=== PATIENT | male | born 1985 | race Caucasian/White ===

== ENCOUNTER 2018-08-31 13:42 | Inpatient (IN) | payer MEDICAID, OTHER ==
--- NOTE | 2018-08-31 14:13 | ED ---
Psych HPI - General Chief Complaint: Psychiatric Symptoms Stated Complaint: psych evaluation Time Seen by Provider: 08/31/18 13:50 Source: patient, RN notes reviewed Mode of arrival: ambulatory Limitations: no limitations - History of Present Illness Initial Comments: 33-year-old male presents emergency from for psychiatric evaluation. Patient states that he is depressed, suicidal. Patient states he has many relationship issues secondary to his drug abuse. Patient states he was recently in senior living released on probation and states that he may be going back to senior living secondary to his drug use. Patient denies any homicidal ideation denies any physical complaints. Patient states he primarily uses heroin, cocaine and methamphetamines - Related Data Home Medications Medication Instructions Recorded Confirmed Dextroamphetamine/Amphetamine 15 mg PO DAILY 08/31/18 08/31/18 [Adderall] Gabapentin [Neurontin] 400 mg PO TID 08/31/18 08/31/18 Paliperidone IM [Invega Sustenna] 234 mg IM Q28D 08/31/18 08/31/18 Trihexyphenidyl [Artane] 1 mg PO BID 08/31/18 08/31/18 Allergies Allergy/AdvReac Type Severity Reaction Status Date / Time haloperidol Allergy Unknown Verified 08/31/18 14:02 Review of Systems ROS Statement: Those systems with pertinent positive or pertinent negative responses have been documented in the HPI. ROS Other: All systems not noted in ROS Statement are negative. Past Medical History Additional Past Medical History / Comment(s): HEPATITIS C History of Any Multi-Drug Resistant Organisms: None Reported Past Surgical History: No Surgical Hx Reported Past Psychological History: ADD/ADHD, Anxiety, Bipolar, Schizoaffective Disorder , Schizophrenia Smoking Status: Current every day smoker Past Alcohol Use History: None Reported Past Drug Use History: Cocaine, Heroin, Marijuana, Methamphetamine General Exam Limitations: no limitations General appearance: alert, in no apparent distress, anxious Head exam: Present: atraumatic, normocephalic, normal inspection Eye exam: Present: normal appearance, PERRL, EOMI. Absent: scleral icterus, conjunctival injection, periorbital swelling ENT exam: Present: normal exam, normal oropharynx, mucous membranes moist, TM's normal bilaterally Neck exam: Present: normal inspection, full ROM. Absent: tenderness, meningismus, lymphadenopathy Respiratory exam: Present: normal lung sounds bilaterally. Absent: respiratory distress, wheezes, rales, rhonchi, stridor Cardiovascular Exam: Present: regular rate, normal rhythm, normal heart sounds. Absent: systolic murmur, diastolic murmur, rubs, gallop, clicks Neurological exam: Present: alert, oriented X3, CN II-XII intact Psychiatric exam: Present: anxious Course Vital Signs 08/31/18 08/31/18 13:44 17:38 Temperature 98.3 F 98.7 F Pulse Rate 87 70 Respiratory 18 16 Rate Blood Pressure 159/107 147/90 O2 Sat by Pulse 98 98 Oximetry Medical Decision Making - Lab Data Result diagrams: 09/01/18 07:34 09/01/18 07:34 Lab Results 08/31/18 Range/Units 14:12 Urine Opiates Screen Detected H (NotDetected) Ur Oxycodone Screen Not Detected (NotDetected) Urine Methadone Screen Not Detected (NotDetected) Ur Propoxyphene Screen Not Detected (NotDetected) Ur Barbiturates Screen Not Detected (NotDetected) U Tricyclic Antidepress Not Detected (NotDetected) Ur Phencyclidine Scrn Not Detected (NotDetected) Ur Amphetamines Screen Detected H (NotDetected) U Methamphetamines Scrn Detected H (NotDetected) U Benzodiazepines Scrn Not Detected (NotDetected) Urine Cocaine Screen Not Detected (NotDetected) U Marijuana (THC) Screen Not Detected (NotDetected) Disposition Clinical Impression: Depression Disposition: ADMITTED IP TO THIS [facility] Condition: Stable
[2018-08-31 14:34] LABS: Amphetamine Screen,Urine Detected (NotDetected); Barbiturate Screen,Urine Not Detected (NotDetected); Benzodiazepines Screen,Urine Not Detected (NotDetected); Cocaine Screen,Urine Not Detected (NotDetected); Methadone Screen, Urine Not Detected (NotDetected); Opiate Screen,Urine Detected (NotDetected); Oxycodone Screen, Urine Not Detected (NotDetected); Phencyclidine Screen,Urine Not Detected (NotDetected); Tricyclic Antidepressant,Urine Not Detected (NotDetected); Urn Cannabinoid Scrn Not Detected (NotDetected)
[2018-08-31 18:46] VITALS: BMI 27.1
[2018-08-31] MEDS ORDERED: MAGNESIUM HYDROXIDE 2,400 MG/10 ML CUP PO PRN (20:04)
[2018-08-31] MEDS ORDERED: ZIPRASIDONE 20 MG VIAL IM PRN (20:04)
[2018-08-31] MEDS ORDERED: MAG HYDROX/AL HYDROX/SIMETH 30 ML CUP PO PRN (20:04)
[2018-08-31] MEDS ORDERED: ACETAMINOPHEN TAB 325 MG TAB PO PRN (20:04)
[2018-08-31] MEDS ORDERED: cloNIDine HCL 0.1 MG TAB PO PRN (20:08)
[2018-08-31] MEDS: LORazepam 1 MG TAB PO PRN (20:55)
--- NOTE | 2018-09-01 07:11 | P.MDCNMH ---
History of Present Illness H&P Date: 09/01/18 Chief Complaint: Medical evaluation 33-year-old male with history of polysubstance abuse Patient presented to the hospital due to depression and suicidal ideation. Patient was in [facility]way recently and were released on probation however due to his drug abuse he is worried that he might go back to [facility]. Patient has no medical complaints at this point. Denies any fevers or chills denies any chest pain or trouble breathing denies any headache. Patient has an area over his left wrist where he shoots his drugs that he reports is tender without any loss of function he denies any discharge or drainage. Review of Systems Pertinent positives as noted in HPI. All other systems were reviewed and are negative Past Medical History Additional Past Medical History / Comment(s): HEPATITIS C History of Any Multi-Drug Resistant Organisms: None Reported Past Surgical History: No Surgical Hx Reported Past Psychological History: ADD/ADHD, Anxiety, Bipolar, Schizoaffective Disorder , Schizophrenia Smoking Status: Current every day smoker Past Alcohol Use History: None Reported Past Drug Use History: Cocaine, Heroin, Marijuana, Methamphetamine Medications and Allergies Home Medications Medication Instructions Recorded Confirmed Type Dextroamphetamine/Amphetamine 15 mg PO DAILY 08/31/18 08/31/18 History [Adderall] Gabapentin [Neurontin] 400 mg PO TID 08/31/18 08/31/18 History Paliperidone IM [Invega Sustenna] 234 mg IM Q28D 08/31/18 08/31/18 History Trihexyphenidyl [Artane] 1 mg PO BID 08/31/18 08/31/18 History Allergies Allergy/AdvReac Type Severity Reaction Status Date / Time haloperidol Allergy Unknown Verified 08/31/18 14:02 Physical Exam Vitals: Vital Signs Temp Pulse Pulse Resp BP BP Pulse Ox 09/01/18 02:28 97.7 F 88 16 121/72 08/31/18 20:52 85 08/31/18 20:51 143/78 08/31/18 18:55 97.2 F L 85 18 122/74 08/31/18 18:36 97.2 F L 85 18 122/74 08/31/18 17:38 98.7 F 70 16 147/90 98 08/31/18 13:44 98.3 F 87 18 159/107 98 Intake and Output 08/31/18 09/01/1809/01/19 22:59 06:59 14:59 Other: Weight 95.722 kg Constitutional: No acute distress, conversant, pleasant Eyes: Anicteric sclerae, moist conjunctiva, no lid-lag Pupils equal round reactive to light ENMT: NC/AT Oropharynx clear, no erythema, exudates Neck: Supple, FROM, no masses, or JVD No carotid bruits No thyromegaly Lungs: Clear to auscultation Clear to percussion Normal respiratory effort, no accessory muscle use Cardiovascular: Heart regular in rate and rhythm, No murmurs, gallops, or rubs No peripheral edema Abdominal: Soft Nontender, no guarding, rebound or rigidity Abdomen moving with respiration Normoactive bowel sounds No hepatomegaly, No splenomegaly No palpable mass No abdominal wall hernia noted Skin: Area 5 x 5 cm over his left wrist from the ventral aspect looks slightly indurated blanchable, tenderness to palpation, with injection cat no drainage no discharge. Slightly warm to the touch Normal temperature, tone, texture, turgor No induration No subcutaneous nodules No rash, lesions No ulcers Extremities: No digital cyanosis No clubbing Pedal pulses intact and symmetrical Radial pulses intact and symmetrical No calf tenderness Psychiatric: Alert and oriented to person, place and time flat affect Poor judgment Neuro Muscles Strength 5/5 in all 4 extremities Sensation to light touch grossly present throughout Cranial nerves II-XII grossly intact No focal sensory deficits Lymphatics: no palpable cervical or supraclavicular , or inguinal lymph nodes Cranial Nerve Examination - Cranial Nerves Cranial Nerve II- Optic: Intact Cranial Nerve III- Oculomotor: Intact Cranial Nerve IV- Trochlear: Intact Cranial Nerve V- Trigeminal: Intact Cranial Nerve - Abducens: Intact Cranial Nerve VII- Facial: Intact Cranial Nerve VIII- Auditory: Intact Cranial Nerve IX- Glossopharyngeal: Intact Cranial Nerve X- Vagus: Intact Cranial Nerve XI- Accessory: Intact Cranial Nerve XII- Hypoglossal: Intact Results Labs: Abnormal Lab Results - Last 24 Hours (Table) 08/31/18 Range/Units 14:12 Urine Opiates Screen Detected H (NotDetected) Ur Amphetamines Screen Detected H (NotDetected) U Methamphetamines Scrn Detected H (NotDetected) Assessment and Plan Assessment: 33-year-old male with history of polysubstance abuse admitted to the mental health unit due to depression and suicidal ideation. Medicine consult to to evaluate patient left wrist for possible cellulitis. Patient uses both wrist to inject his drugs, has left wrist is concerning for cellulitis Plan: Cellulitis of the left wrist Due to patient's history of drug abuse and active IV drug abuse blood cultures will be checked Start patient on Keflex by mouth Monitor vital signs Depression and suicidal ideation Management per psych DVT prophylaxis patient is low risk and ambulatory Follow-up labs once available Thank you for allowing us to participate in the care of this patient. Do not hesitate to contact us with questions. Someone can be reached from the [facility] hospitalist group at all hours of the day at [phone].
[2018-09-01 08:23] LABS: Basophils % (A) 1 %; Eosinophils # (A) 0.2 k/uL (0-0.7); Eosinophils % (A) 4 %; HCT 43.7 % (39.0-53.0); HGB 14.5 gm/dL (13.0-17.5); Lymphocytes # (A) 2.2 k/uL (1.0-4.8); Lymphocytes % (A) 41 %; MCH 29.8 pg (25.0-35.0); MCHC 33.2 g/dL (31.0-37.0); MCV 89.7 fL (80.0-100.0); Mean Platelet Volume 7.2; Monocytes # (A) 0.4 k/uL (0-1.0); Monocytes % (A) 7 %; Neutrophils # (A) 2.4 k/uL (1.3-7.7); Neutrophils % (A) 44 %; Platelet Count 253 k/uL (150-450); RBC 4.88 m/uL (4.30-5.90); RDW 13.2 % (11.5-15.5); WBC 5.3 k/uL (3.8-10.6)
[2018-09-01 08:34] LABS: Anion Gap 6 mmol/L; Blood Urea Nitrogen 20 mg/dL (9-20); Carbon Dioxide 28 mmol/L (22-30); Chloride 103 mmol/L (98-107); Cholesterol 185 mg/dL (<200); Glucose 85 mg/dL (74-99); HDL Cholesterol 36 mg/dL (40-60); LDL Cholesterol,Calculated 132 mg/dL (0-99); Potassium 4.1 mmol/L (3.5-5.1); Sodium 137 mmol/L (137-145); Triglycerides 85 mg/dL (<150)
[2018-09-01] MEDS: NICOTINE 14MG/24HR PATCH TRANSDERM SCH (08:44)
[2018-09-01] MEDS: LORazepam 1 MG TAB PO PRN ×2 (08:44→16:45)
[2018-09-01] MEDS: CEPHALEXIN 500 MG CAP PO SCH ×3 (08:44→21:06)
--- NOTE | 2018-09-01 11:34 | P.HP ---
Psychiatric H&P - . History & Physical: Allergies Allergy/AdvReac Type Severity Reaction Status Date / Time haloperidol Allergy Unknown Verified 08/31/18 14:02 Vital Signs Temp 97.7 F 09/01/18 02:28 Pulse 88 09/01/18 02:28 Resp 16 09/01/18 02:28 BP 121/72 09/01/18 02:28 Pulse Ox 98 08/31/18 17:38 Intake & Output 08/31/18 09/01/18 09/01/18 18:59 06:59 18:59 Weight 95.722 kg Laboratory Last Values WBC 5.3 k/uL (3.8-10.6) 09/01/18 07:34 RBC 4.88 m/uL (4.30-5.90) 09/01/18 07:34 Hgb 14.5 gm/dL (13.0-17.5) 09/01/18 07:34 Hct 43.7 % (39.0-53.0) 09/01/18 07:34 MCV 89.7 fL (80.0-100.0) 09/01/18 07:34 MCH 29.8 pg (25.0-35.0) 09/01/18 07:34 MCHC 33.2 g/dL (31.0-37.0) 09/01/18 07:34 RDW 13.2 % (11.5-15.5) 09/01/18 07:34 Plt Count 253 k/uL (150-450) 09/01/18 07:34 Neutrophils % 44 % 09/01/18 07:34 Lymphocytes % 41 % 09/01/18 07:34 Monocytes % 7 % 09/01/18 07:34 Eosinophils % 4 % 09/01/18 07:34 Basophils % 1 % 09/01/18 07:34 Neutrophils # 2.4 k/uL (1.3-7.7) 09/01/18 07:34 Lymphocytes # 2.2 k/uL (1.0-4.8) 09/01/18 07:34 Monocytes # 0.4 k/uL (0-1.0) 09/01/18 07:34 Eosinophils # 0.2 k/uL (0-0.7) 09/01/18 07:34 Basophils # 0.0 k/uL (0-0.2) 09/01/18 07:34 Sodium 137 mmol/L (137-145) 09/01/18 07:34 Potassium 4.1 mmol/L (3.5-5.1) 09/01/18 07:34 Chloride 103 mmol/L (98-107) 09/01/18 07:34 Carbon Dioxide 28 mmol/L (22-30) 09/01/18 07:34 Anion Gap 6 mmol/L 09/01/18 07:34 BUN 20 mg/dL (9-20) 09/01/18 07:34 Creatinine 0.79 mg/dL (0.66-1.25) 09/01/18 07:34 Est GFR (CKD-EPI)AfAm >90 (>60 ml/min/1.73 sqM) 09/01/18 07:34 Est GFR (CKD-EPI)NonAf >90 (>60 ml/min/1.73 sqM) 09/01/18 07:34 Glucose 85 mg/dL (74-99) 09/01/18 07:34 Calcium 9.0 mg/dL (8.4-10.2) 09/01/18 07:34 Triglycerides 85 mg/dL (<150) 09/01/18 07:34 Cholesterol 185 mg/dL (<200) 09/01/18 07:34 LDL Cholesterol, Calc 132 mg/dL (0-99) H 09/01/18 07:34 HDL Cholesterol 36 mg/dL (40-60) L 09/01/18 07:34 TSH 1.650 mIU/L (0.465-4.680) 09/01/18 07:34 Urine Opiates Screen Detected (NotDetected) H 08/31/18 14:12 Ur Oxycodone Screen Not Detected (NotDetected) 08/31/18 14:12 Urine Methadone Screen Not Detected (NotDetected) 08/31/18 14:12 Ur Propoxyphene Screen Not Detected (NotDetected) 08/31/18 14:12 Ur Barbiturates Screen Not Detected (NotDetected) 08/31/18 14:12 U Tricyclic Antidepress Not Detected (NotDetected) 08/31/18 14:12 Ur Phencyclidine Scrn Not Detected (NotDetected) 08/31/18 14:12 Ur Amphetamines Screen Detected (NotDetected) H 08/31/18 14:12 U Methamphetamines Scrn Detected (NotDetected) H 08/31/18 14:12 U Benzodiazepines Scrn Not Detected (NotDetected) 08/31/18 14:12 Urine Cocaine Screen Not Detected (NotDetected) 08/31/18 14:12 U Marijuana (THC) Screen Not Detected (NotDetected) 08/31/18 14:12 09/01/18 11:25 IDENTIFYING DATA: This patient is a 33-year-old male who was admitted to the mental health unit through the emergency room for acute suicidal ideation. HPI: The patient presented reporting acute suicidal ideation with a plan of overdosing on heroin. He indicated he had been off his medication for several weeks. Sleep has been poor energy is low. He has been feeling hopeless. He is endorsing auditory hallucinations that are occurring all day don't stop. He states that they continually ask questions. They are commanding at times but "not bad stuff". He is reporting no acute homicidal ideation intent or plan. He is known to [facility] and has been admitted to the mental health unit several times in the past. He carries a diagnosis of schizoaffective disorder opioid use disorder cocaine use disorder cannabis use disorder alcohol use disorder with a rule out of ADHD. PAST PSYCHIATRIC HISTORY: The patient has had at least 12 inpatient psychiatric admissions he was last on this unit in 2013 under the care of Dr. Lazo. At that time he was treated with Seroquel. He is managed by Gianna Thomas at [facility] his medications include Invega Sustenna but he has been overdue for that injection. He is also on Neurontin 400 mg 3 times a day and he was to be started on Adderall XR 15 mg daily. He has been on Clozaril in the past and is asking to go back on that medication. He indicates he was discontinued as he was not complying with the blood draws. He does have a history of self-injurious behavior in his 20s. He states in 2007 he lacerated his left forearm which required numerous sutures. PMH: None reported ALLERGIES: Haldol MEDICATIONS: As above CHEMICAL DEPENDENCY HISTORY: He reports using alcohol on a weekly basis having 10-15 drinks at a time, he has a history of using cannabis although was not in his urine drug screen. He has been using heroin 3 times daily for the last 2 weeks he was using Suboxone that he was getting off of the street prior to that. Methamphetamine is once to twice weekly. He indicates he has been in inpatient chemical dependency treatment 8 times the last one was proximal and 1 year ago. FAMILY PSYCHIATRIC HISTORY: Unknown FAMILY CHEMICAL DEPENDENCY HISTORY: unKnown SOCIAL HISTORY: The patient is 33 years old is single he has no children he has been residing either with his parents or an ex-girlfriend. He is unemployed he has a disability income. He has 1 brother one sister no history of service. He is originally from [place]. He reports an extensive legal history being arrested for robbery car theft uttering and publishing. His longest incarceration was 15 months and he states he just recently got out of senior care in April. Afterwards he was residing at the [facility]. Abuse history none reported. MENTAL STATUS EXAM: He patient is a tall male appearing his stated age. Hygiene and grooming are impaired he is dressed in hospital gowns. Eye contact is staring in nature. He maintains a bland affect. He reports ongoing suicidal thoughts no homicidal ideation. He endorses constant auditory hallucinations described as active conversations and sometimes commanding but not directing harm to himself or others. He reports no visual hallucinations. He states being fearful of different organizations in the public but has difficulty explaining why. He does demonstrate increased psychomotor activity while seated in his chair. He demonstrates no verbal or physical aggressiveness thought process was disorganized at times. Insight and judgment limited. He demonstrated no verbal or physical aggressiveness. In terms of extrapyramidal movements he demonstrates some stiffness of his jaw with some repetitive movement. STRENGTHS/WEAKNESSES: Strengths willing to be treated voluntarily in the hospital, income weaknesses: Noncompliance with treatment and substance use INTELLECTUAL FUNCTIONING: Likely below average IMPRESSIONS: [] 1. Schizoaffective disorder, opioid use disorder, methamphetamine use disorder , cocaine use disorder, cannabis use disorder, alcohol use disorder 2. Cellulitis diagnosed of his distal anterior left upper extremity PLAN: The patient has been admitted to the mental health unit voluntarily. We reviewed his presenting symptoms and treatment options. We are considering restarting the Invega Sustenna versus Clozaril. I have placed a call with his outpatient clinician with [facility]. The patient has already been seen by internal medicine for routine history and physical exam keflex has been started for the diagnosed cellulitis. We will monitor for any alcohol withdrawal symptoms. Clonidine is available for any opiate withdrawal symptoms. We will monitor him for safety and encourage his full participation in the milieu. We discussed the possibility of going to inpatient chemical dependency treatment and he will give that consideration.
[2018-09-01 17:37] LABS: Hemoglobin A1C 4.9 % (4.0-6.0)
[2018-09-01] MEDS: cloZAPine 25 MG TAB PO SCH (21:05)
[2018-09-01] MEDS: lamoTRIgine 25 MG TAB PO SCH (21:06)
[2018-09-02] MEDS: CEPHALEXIN 500 MG CAP PO SCH ×3 (09:56→20:19)
[2018-09-02] MEDS: cloZAPine 25 MG TAB PO SCH ×2 (09:56→20:19)
[2018-09-02] MEDS: NICOTINE 14MG/24HR PATCH TRANSDERM SCH (09:57)
--- NOTE | 2018-09-02 12:41 | P.PN ---
Progress Note - Text Progress Note Date: 09/02/18 IDENTIFYING DATA: This patient is a 33-year-old male who was admitted to the mental health unit through the emergency room for acute suicidal ideation. HPI: The patient presented reporting acute suicidal ideation with a plan of overdosing on heroin. He indicated he had been off his medication for several weeks. Sleep has been poor energy is low. He has been feeling hopeless. He is endorsing auditory hallucinations that are occurring all day don't stop. He states that they continually ask questions. They are commanding at times but "not bad stuff". He is reporting no acute homicidal ideation intent or plan. He is known to [facility] and has been admitted to the mental health unit several times in the past. He carries a diagnosis of schizoaffective disorder opioid use disorder cocaine use disorder cannabis use disorder alcohol use disorder with a rule out of ADHD. MENTAL STATUS EXAM: He patient is a tall male appearing his stated age. Hygiene and grooming are impaired he is dressed casually. Eye contact is staring in nature. He maintains a bland affect. He reports ongoing suicidal thoughts no homicidal ideation. He endorses constant auditory hallucinations described as active conversations and sometimes commanding but not directing harm to himself or others. He reports no visual hallucinations. He states being fearful of different organizations in the public but has difficulty explaining why. He does demonstrate increased psychomotor activity while seated in his chair. He demonstrates no verbal or physical aggressiveness thought process was disorganized at times. Insight and judgment limited. He demonstrated no verbal or physical aggressiveness. In terms of extrapyramidal movements he demonstrates some stiffness of his jaw with some repetitive movement. STRENGTHS/WEAKNESSES: Strengths willing to be treated voluntarily in the hospital, income weaknesses: Noncompliance with treatment and substance use INTELLECTUAL FUNCTIONING: Likely below average IMPRESSIONS: [] 1. Schizoaffective disorder, opioid use disorder, methamphetamine use disorder , cocaine use disorder, cannabis use disorder, alcohol use disorder 2. Cellulitis diagnosed of his distal anterior left upper extremity Will continue medications, observe
[2018-09-02] MEDS: lamoTRIgine 25 MG TAB PO SCH (20:19)
[2018-09-03] MEDS: CEPHALEXIN 500 MG CAP PO SCH ×3 (08:03→20:09)
[2018-09-03] MEDS: cloZAPine 25 MG TAB PO SCH ×2 (08:03→20:08)
[2018-09-03] MEDS: NICOTINE 14MG/24HR PATCH TRANSDERM SCH (08:04)
[2018-09-03] MEDS: LORazepam 1 MG TAB PO PRN ×2 (11:04→19:35)
--- NOTE | 2018-09-03 11:42 | P.PN ---
Progress Note - Text Progress Note Date: 09/03/18 Interval history: Chart reviewed and discussed with nursing staff patient's status. He is requesting more when necessary medication for anxiety and tends to isolate in his room. Denies any suicidal homicidal ideation. MENTAL STATUS EXAM: He patient is a tall male appearing his stated age. Hygiene and grooming are impaired he is dressed casually. Eye contact is staring in nature. He maintains a bland affect. He reports ongoing suicidal thoughts no homicidal ideation. He endorses constant auditory hallucinations described as active conversations and sometimes commanding but not directing harm to himself or others. He reports no visual hallucinations. He states being fearful of different organizations in the public but has difficulty explaining why. He does demonstrate increased psychomotor activity while seated in his chair. He demonstrates no verbal or physical aggressiveness thought process was disorganized at times. Insight and judgment limited. He demonstrated no verbal or physical aggressiveness. In terms of extrapyramidal movements he demonstrates some stiffness of his jaw with some repetitive movement. STRENGTHS/WEAKNESSES: Strengths willing to be treated voluntarily in the hospital, income weaknesses: Noncompliance with treatment and substance use INTELLECTUAL FUNCTIONING: Likely below average IMPRESSIONS: [] 1. Schizoaffective disorder, opioid use disorder, methamphetamine use disorder , cocaine use disorder, cannabis use disorder, alcohol use disorder 2. Cellulitis diagnosed of his distal anterior left upper extremity Will increase Lamictal to 50 mg by mouth daily at bedtime we'll follow and observe
[2018-09-03] MEDS: lamoTRIgine 25 MG TAB PO SCH (20:09)
[2018-09-04] MEDS: NICOTINE 14MG/24HR PATCH TRANSDERM SCH (08:15)
[2018-09-04] MEDS: cloZAPine 25 MG TAB PO SCH ×2 (08:15→20:34)
[2018-09-04] MEDS: CEPHALEXIN 500 MG CAP PO SCH ×3 (08:15→20:35)
--- NOTE | 2018-09-04 11:29 | P.PN ---
Progress Note - Text Interval history: The patient is found in group he follows me to an interview room. He states his mood is still low. He reports having difficulty sleeping last night staff recorded he slept 6 hours. Appetite stable. We reviewed his psychotropic medications. In detail with discussed the clozapine. He was informed that I was able to reach his outpatient prescriber. He has questions about restarting Wellbutrin. We decided we would defer that as we are working with the Lamictal and clozapine at this time. He continues to state that he is interested in attending inpatient chemical dependency treatment. That packet has been sent we are waiting a response from [facility]. Mental status exam: The patient is alert he is dressed in his own clothing hygiene grooming adequate. Eye contact is appropriate. Speech is fluent spontaneous nonpressured. He does appear distractible at times. He is reporting no acute suicidal or homicidal thoughts. He is reporting no other symptoms but it's possible that he continues to experience delusional thoughts. He demonstrates no verbal or physical aggressiveness. He continues to have some baseline movement of his lower jaw. Plan: The patient will continue on his current medications we will titrate the clozapine to 25 mg in the morning 75 mg at bedtime, continue Lamictal at current dose. We will monitor him for safety. We will await input from [facility] in terms of all placement date. Vital signs reviewed.
[2018-09-04] MEDS: LORazepam 1 MG TAB PO PRN ×2 (11:45→20:35)
[2018-09-04] MEDS: lamoTRIgine 25 MG TAB PO SCH (20:35)
[2018-09-05] MEDS: NICOTINE 14MG/24HR PATCH TRANSDERM SCH (10:07)
[2018-09-05] MEDS: cloZAPine 25 MG TAB PO SCH ×2 (10:07→20:50)
[2018-09-05] MEDS: CEPHALEXIN 500 MG CAP PO SCH ×3 (10:07→20:50)
--- NOTE | 2018-09-05 11:36 | P.PN ---
Progress Note - Text Interval history: The patient is found in his room he follows me to an interview room. He reports his mood is improving. He has no questions or concerns regarding his psychotropic medication. He has been compliant with his medication. I was informed by social work that he is scheduled to start inpatient chemical dependency treatment on . Social work has also spoken with the patient's mother. His mother would like to have him discharged tomorrow so that she is able to transport him to inpatient chemical dependency treatment on . The patient is agreeable with this plan. Mental status exam: The patient is alert he is dressed in his own clothing. Hygiene grooming adequate. He indicates his mood is better. He is reporting no suicidal or homicidal ideation intent or plan. He is reporting no auditory or visual hallucinations or any specific delusions. He demonstrates no verbal or physical aggressiveness. He demonstrates no tangential thinking loose associations or flight of ideas. He does not appear hypomanic or manic at this time. Insight and judgment improving. He demonstrates no involuntary repetitive movements currently. Plan: The patient will continue on his current psychotropic medication. We will anticipate discharging him tomorrow if he is clinically stable. Vital signs reviewed.
[2018-09-05] MEDS: LORazepam 1 MG TAB PO PRN (17:51)
[2018-09-05] MEDS: lamoTRIgine 25 MG TAB PO SCH (20:50)
[2018-09-06 06:31] VITALS: BP 121/74; PULSE 49; RESP 16; TEMP 97.4
[2018-09-06] MEDS: NICOTINE 14MG/24HR PATCH TRANSDERM SCH (09:08)
[2018-09-06] MEDS: cloZAPine 25 MG TAB PO SCH (09:08)
[2018-09-06] MEDS: CEPHALEXIN 500 MG CAP PO SCH (09:08)
--- NOTE | 2018-09-06 09:13 | P.DS ---
Providers Date of admission: 08/31/18 17:57 Expected date of discharge: 09/06/18 Attending physician: Finn Steele Consults: 08/31/18 20:04 Consult Physician Routine Consulting Provider: Mark Physician Consult Reason/Comments: H and P, eval and tx, r/o metabolic disorder Do you want consulting provider notified?: Already Contacted Primary care physician: [facility] Diagnosis(es) (1) Schizoaffective disorder Current Visit: Yes Status: Acute Priority: High (2) Opioid use disorder Current Visit: Yes Status: Acute Priority: Medium (3) Methamphetamine use disorder, moderate Current Visit: Yes Status: Acute Priority: Medium Hospital Course: Brief summary of admission note: This patient is a 33-year-old male who was admitted to the mental health unit through the emergency room for acute suicidal ideation. The patient presented with acute suicidal thoughts with a plan of overdosing on heroin. He had indicated he was off of his psychotropic medication for several weeks. He described having poor sleep low energy and feeling hopeless. He endorsed auditory hallucinations that were present "all day, all the time". He is known to this mental health unit as well as [facility] mental health. He carries a diagnosis of schizoaffective disorder opiate use disorder cocaine use disorder methamphetamine use disorder alcohol use disorder cannabis use disorder. For full details please refer to my psychiatric evaluation dated 09/01/2018. Summary of hospital course: The patient was admitted to the mental health unit voluntarily. We reviewed the patient's presenting symptoms and treatment options. He was last treated with invega and Invega Sustenna but he felt that medication was not as effective and he asked to go back on Clozaril. We reviewed the potential benefits and side effects of clozapine and his questions were answered. I did have the opportunity to speak with his outpatient clinician Gianna Thomas. She was agreeable to the patient being restarted on clozapine. The patient was restarted on Lamictal. He selectively attended groups. He demonstrated no agitated behavior. He indicated he wanted to attend inpatient chemical dependency treatment and his intake is scheduled for tomorrow. His mother was involved in treatment and discharge planning. She indicated that she preferred the patient be discharged today so that she can take him tomorrow morning to inpatient chemical dependency treatment. The patient states that his auditory hallucinations and suicidal ideation have completely resolved. He was seen by internal medicine for routine history and physical exam. He was diagnosed with a cellulitis of his left distal wrist which was treated with Keflex. Mental status exam: The patient is alert he is dressed in his own clothing hygiene grooming adequate. Eye contact is appropriate speech is fluent spontaneous nonpressured. He is reporting no suicidal or homicidal ideation intent or plan. He is endorsing no auditory or visual hallucinations. He is endorsing no command auditory hallucinations. He reports no specific delusions and indicates that he feels safe. There is no observed evidence of psychosis while he seated in the chair during this interaction. Thought process is linear and goal-directed. He demonstrates no tangential thinking loose associations or flight of ideas. He does not appear hypomanic or manic. Insight and judgment have improved and are grossly intact. He demonstrates no verbal or physical aggressiveness. He is demonstrating no abnormal involuntary movements at this time. Affect is appropriately expressive. He spontaneously reports future oriented thinking. Impressions 1. Schizoaffective disorder, opiate use disorder, methamphetamine use disorder , cocaine use disorder, cannabis use disorder, alcohol use disorder, rule out ADHD 2. Cellulitis of distal left anterior upper extremity now resolved Plan: The patient will be discharged mental health unit today he will return to his mother's home. He has an intake with inpatient chemical dependency treatment tomorrow morning. His mother preferred that he be discharged today so that she can transport him tomorrow morning. He will continue on Lamictal 50 mg at bedtime and continue on clozapine 25 mg in the morning 50 mg at bedtime. A CBC with differential was drawn today, results are pending. He is instructed to abstain from any use of alcohol marijuana or any illicit drug as these will provoke symptoms of psychosis and elevate his safety risk. He is instructed to return to the hospital with any acute safety concern. At this time there is no imminent safety risk and he is appropriate for transition to the next level of care. Patient Condition at Discharge: Stable Plan - Discharge Summary Discharge Rx Participant: No New Discharge Prescriptions: New Cephalexin [Keflex] 500 mg PO TID #6 cap cloZAPine [Clozaril] 25 mg PO DAILY #30 tab cloZAPine [Clozaril] 50 mg PO HS #60 tab lamoTRIgine [LaMICtal] 50 mg PO 2100 #60 tab Nicotine 14Mg/24Hr Patch [Habitrol] 1 patch TRANSDERM DAILY #12 patch Discontinued Gabapentin [Neurontin] 400 mg PO TID Paliperidone IM [Invega Sustenna] 234 mg IM Q28D Trihexyphenidyl [Artane] 1 mg PO BID Dextroamphetamine/Amphetamine [Adderall] 15 mg PO DAILY Discharge Medication List Cephalexin [Keflex] 500 mg PO TID #6 cap 09/06/18 [Rx] Nicotine 14Mg/24Hr Patch [Habitrol] 1 patch TRANSDERM DAILY #12 patch 09/06/18 [ Rx] cloZAPine [Clozaril] 25 mg PO DAILY #30 tab 09/06/18 [Rx] cloZAPine [Clozaril] 50 mg PO HS #60 tab 09/06/18 [Rx] lamoTRIgine [LaMICtal] 50 mg PO 2100 #60 tab 09/06/18 [Rx] Follow up Appointment(s)/Referral[facility]s): [facility] - 09/07/18 11:00 am (Intake ) [facility] [Primary Care Provider] - 1-2 days Patient Instructions/Handouts: How to Stop Smoking (GEN), Depression (GEN), Suicide Prevention (GEN) Activity/Diet/Wound Care/Special Instructions: Activity and diet as tolerated. Avoid the use of street drugs and alcohol. Take all medications as prescribed. When you are in need of refills on your medications please contact your medical provider and/or outpatient psychiatrist to have this done. Please go to scheduled outpatient appointment for aftercare treatment. If symptoms return or become worse, call the crisis line at [phone] and/or go to the nearest emergency room for evaluation.
[2018-09-06 09:23] LABS: Basophils % (A) 1 %; Eosinophils # (A) 0.2 k/uL (0-0.7); Eosinophils % (A) 3 %; HGB 15.7 gm/dL (13.0-17.5); Lymphocytes % (A) 38 %; MCH 30.3 pg (25.0-35.0); MCHC 34.2 g/dL (31.0-37.0); MCV 88.6 fL (80.0-100.0); Mean Platelet Volume 7.2; Monocytes # (A) 0.2 k/uL (0-1.0); Monocytes % (A) 4 %; Neutrophils # (A) 2.8 k/uL (1.3-7.7); Neutrophils % (A) 52 %; Platelet Count 275 k/uL (150-450); RBC 5.19 m/uL (4.30-5.90); RDW 13.4 % (11.5-15.5); WBC 5.4 k/uL (3.8-10.6)
== END 2018-09-06 11:18 | disposition home or self-care (01) | DRG 885 ==
LOC: EC 13:42 → 3MHU 17:57
PROVIDERS: ADMIT Psychiatry & Neurology Psychiatry; ATTEND Psychiatry & Neurology Psychiatry
DX: F25.9 Schizoaffective disorder, unspecified (principal); R45.851 Suicidal ideations; L03.114 Cellulitis of left upper limb; F17.200 Nicotine dependence, unspecified, uncomplicated; F31.9 Bipolar disorder, unspecified; F41.9 Anxiety disorder, unspecified; F90.9 Attention-deficit hyperactivity disorder, unspecified type; B19.20 Unspecified viral hepatitis C without hepatic coma; F11.90 Opioid use, unspecified, uncomplicated; F15.90 Other stimulant use, unspecified, uncomplicated; Z79.899 Other long term (current) drug therapy; Z91.5 Personal history of self-harm; Z88.8 Allergy status to other drugs, medicaments and biological substances; Z91.19 Patient's noncompliance with other medical treatment and regimen
CPT/HCPCS: 80048; 80061; 80306; 82075; 83036; 84443; 85025; 87040; 99285

== ENCOUNTER 2019-01-10 18:46 | Inpatient (IN) | payer MEDICAID, OTHER ==
--- NOTE | 2019-01-10 19:56 | ED ---
General Adult HPI - General Chief complaint: Psychiatric Symptoms Stated complaint: Headache, no sleep Time Seen by Provider: 01/10/19 19:40 Source: patient, RN notes reviewed Mode of arrival: ambulatory Limitations: no limitations - History of Present Illness Initial comments: This is a 33-year-old male who presents emergency department with past medical history significant for schizophrenia. Patient states he stopped taking his medicines while ago. Patient comes in today stating that he thinks he is in charge of the world and in charge of a bunch of people that he believes he wants to direct him to harm other people. Patient states he also thinks he has a lot of got like traits. Patient denies any physical complaints today. Patient denies any drinking or drug use. - Related Data Home Medications Medication Instructions Recorded Confirmed No Known Home Medications 01/10/19 01/10/19 Allergies Allergy/AdvReac Type Severity Reaction Status Date / Time haloperidol Allergy Unknown Verified 01/10/19 20:46 Review of Systems ROS Statement: Those systems with pertinent positive or pertinent negative responses have been documented in the HPI. ROS Other: All systems not noted in ROS Statement are negative. Past Medical History Additional Past Medical History / Comment(s): HEPATITIS C History of Any Multi-Drug Resistant Organisms: None Reported Past Surgical History: No Surgical Hx Reported Past Psychological History: ADD/ADHD, Anxiety, Bipolar, Schizoaffective Disorder, Schizophrenia Smoking Status: Current every day smoker Past Alcohol Use History: None Reported Past Drug Use History: Cocaine, Heroin, Marijuana, Methamphetamine General Exam - General Exam Comments Initial Comments: GENERAL: Patient is well-developed and well-nourished. Patient is nontoxic and well- hydrated and is in no acute distress. ENT: Neck is soft and supple. No significant lymphadenopathy is noted. Oropharynx is clear. Moist mucous membranes. Neck has full range of motion without eliciting any pain. EYES: The sclera were anicteric and conjunctiva were pink and moist. Extraocular movements were intact and pupils were equal round and reactive to light. Eyelids were unremarkable. PULMONARY: Unlabored respirations. Good breath sounds bilaterally. No audible rales rhonchi or wheezing was noted. CARDIOVASCULAR: There is a regular rate and rhythm without any murmurs gallops or rubs. ABDOMEN: Soft and nontender with normal bowel sounds. SKIN: Skin is clear with no lesions or rashes and otherwise unremarkable. NEUROLOGIC: Patient is alert and oriented x3. Cranial nerves II through XII are grossly intact. Motor and sensory are also intact. Normal speech, volume and content. Symmetrical smile. MUSCULOSKELETAL: Normal extremities with adequate strength and full range of motion. LYMPHATICS: No significant lymphadenopathy is noted PSYCHIATRIC: Patient thinks he is in charge the world and has thoughts of wanting to take the people he is in charge of her a lot of people. Limitations: no limitations Course Vital Signs 01/10/19 19:41 Temperature 98.2 F Pulse Rate 68 Respiratory 17 Rate Blood Pressure 139/94 O2 Sat by Pulse 99 Oximetry Medical Decision Making - Medical Decision Making Dr. Ho will taking over the care of this patient at 1am - Lab Data Lab Results 01/10/19 Range/Units 20:36 Urine Opiates Screen Not Detected (NotDetected) Ur Oxycodone Screen Not Detected (NotDetected) Urine Methadone Screen Not Detected (NotDetected) Ur Propoxyphene Screen Not Detected (NotDetected) Ur Barbiturates Screen Not Detected (NotDetected) U Tricyclic Antidepress Not Detected (NotDetected) Ur Phencyclidine Scrn Not Detected (NotDetected) Ur Amphetamines Screen Detected H (NotDetected) U Methamphetamines Scrn Detected H (NotDetected) U Benzodiazepines Scrn Not Detected (NotDetected) Urine Cocaine Screen Not Detected (NotDetected) U Marijuana (THC) Screen Detected H (NotDetected) Disposition Clinical Impression: Methamphetamine abuse Referrals: None,Stated [Primary Care Provider] - 1-2 days
[2019-01-10 20:59] LABS: Amphetamine Screen,Urine Detected (NotDetected); Barbiturate Screen,Urine Not Detected (NotDetected); Benzodiazepines Screen,Urine Not Detected (NotDetected); Cocaine Screen,Urine Not Detected (NotDetected); Methadone Screen, Urine Not Detected (NotDetected); Opiate Screen,Urine Not Detected (NotDetected); Oxycodone Screen, Urine Not Detected (NotDetected); Phencyclidine Screen,Urine Not Detected (NotDetected); Tricyclic Antidepressant,Urine Not Detected (NotDetected); Urn Cannabinoid Scrn Detected (NotDetected)
[2019-01-10] MEDS ORDERED: LORazepam 2 MG/ML INJ IV STA (21:57)
[2019-01-10] MEDS ORDERED: ZIPRASIDONE 20 MG VIAL IM STA (21:58)
[2019-01-10] MEDS ORDERED: LORazepam 2 MG/ML INJ IM STA (22:16)
[2019-01-11 15:17] VITALS: BMI 25.3
[2019-01-11] MEDS ORDERED: MAG HYDROX/AL HYDROX/SIMETH 30 ML CUP PO PRN (15:46)
[2019-01-11] MEDS ORDERED: MAGNESIUM HYDROXIDE 2,400 MG/10 ML CUP PO PRN (15:46)
[2019-01-11] MEDS: LORazepam 1 MG TAB PO PRN (15:58)
[2019-01-11] MEDS: NICOTINE 14MG/24HR PATCH TRANSDERM SCH (16:00)
[2019-01-11] MEDS: ZIPRASIDONE 20 MG VIAL IM PRN (18:56)
[2019-01-12] MEDS: ACETAMINOPHEN TAB 325 MG TAB PO PRN ×2 (06:03→16:37)
[2019-01-12] MEDS: LORazepam 1 MG TAB PO PRN (06:03)
[2019-01-12] MEDS: ZIPRASIDONE 20 MG VIAL IM PRN ×2 (06:04→23:13)
[2019-01-12] MEDS ORDERED: ZIPRASIDONE 20 MG VIAL IM ONE (06:04)
[2019-01-12] MEDS ORDERED: WATER FOR INJECTION, STERILE 10 ML IV ONE (06:05)
--- NOTE | 2019-01-12 07:00 | P.MDCNMH ---
History of Present Illness H&P Date: 01/12/19 Chief Complaint: Grandiose 33-year-old male with history of schizophrenia Patient presented to the hospital seeking help, he was describing grandiose behavior and thoughts. He denies any suicidal or homicidal ideation. He admits to polysubstance abuse. He denies any physical complaints at this time. He denies any medical history. He denies fevers chills coughing shortness of breath or chest pain. Denies any abdominal pain nausea vomiting changes in bowel or urinary habits. Review of Systems Pertinent positives as noted in HPI. All other systems were reviewed and are negative Past Medical History Additional Past Medical History / Comment(s): HEPATITIS C History of Any Multi-Drug Resistant Organisms: None Reported Past Surgical History: No Surgical Hx Reported Past Anesthesia/Blood Transfusion Reactions: No Reported Reaction Past Psychological History: ADD/ADHD, Anxiety, Bipolar, Schizoaffective Disorder Smoking Status: Current every day smoker Past Alcohol Use History: None Reported Past Drug Use History: Cocaine, Heroin, Marijuana, Methamphetamine - Past Family History family Family Medical History: No Reported History Medications and Allergies Home Medications Medication Instructions Recorded Confirmed Type No Known Home Medications 01/10/19 01/10/19 History Allergies Allergy/AdvReac Type Severity Reaction Status Date / Time haloperidol Allergy Unknown Verified 01/10/19 20:46 Physical Exam Vitals: Vital Signs Temp Pulse Pulse Resp BP BP Pulse Ox 01/12/19 06:48 84 18 123/78 01/11/19 17:00 98.2 F 57 L 20 127/82 97 01/11/19 15:08 98.2 F 63 20 111/67 01/11/19 13:48 18 127/82 97 Constitutional: No acute distress, conversant, pleasant Eyes: Anicteric sclerae, moist conjunctiva, no lid-lag Pupils equal round reactive to light ENMT: NC/AT Oropharynx clear, no erythema, exudates Neck: Supple, FROM, no masses, or JVD No carotid bruits No thyromegaly Lungs: Clear to auscultation Clear to percussion Normal respiratory effort, no accessory muscle use Cardiovascular: Heart regular in rate and rhythm, No murmurs, gallops, or rubs No peripheral edema Abdominal: Soft Nontender, no guarding, rebound or rigidity Abdomen moving with respiration Normoactive bowel sounds No hepatomegaly, No splenomegaly No palpable mass No abdominal wall hernia noted Skin: Normal temperature, tone, texture, turgor No induration No subcutaneous nodules No rash, lesions No ulcers Extremities: No digital cyanosis No clubbing Pedal pulses intact and symmetrical Radial pulses intact and symmetrical No calf tenderness Psychiatric: Alert and oriented to person, place and time Appropriate affect Poor judgment Neuro Muscles Strength 5/5 in all 4 extremities Sensation to light touch grossly present throughout Cranial nerves II-XII grossly intact No focal sensory deficits Lymphatics: no palpable cervical or supraclavicular , or inguinal lymph nodes Cranial Nerve Examination - Cranial Nerves Cranial Nerve II- Optic: Intact Cranial Nerve III- Oculomotor: Intact Cranial Nerve IV- Trochlear: Intact Cranial Nerve V- Trigeminal: Intact Cranial Nerve - Abducens: Intact Cranial Nerve VII- Facial: Intact Cranial Nerve VIII- Auditory: Intact Cranial Nerve IX- Glossopharyngeal: Intact Cranial Nerve X- Vagus: Intact Cranial Nerve XI- Accessory: Intact Cranial Nerve XII- Hypoglossal: Intact Assessment and Plan Assessment: 34-year-old male with history of schizophrenia presented to the hospital for mental health evaluation patient was feeling grandiose he denies any medical or physical complaints otherwise patient also admits to polysubstance abuse Plan: Acute psychosis History of schizophrenia Polysubstance abuse Management per psych Tobacco smoking Counseled to quit smoking Nicotine replacement therapy Low risk for DVT, patient is ambulatory Thank you for allowing us to participate in the care of this patient. We will follow peripherally. Do not hesitate to contact us with questions. Someone can be reached from the [facility] hospitalist group at all hours of the day at [phone].
[2019-01-12 09:17] LABS: Basophils # (A) 0.1 k/uL (0-0.2); Basophils % (A) 1 %; Eosinophils # (A) 0.2 k/uL (0-0.7); Eosinophils % (A) 3 %; HCT 44.8 % (39.0-53.0); HGB 14.7 gm/dL (13.0-17.5); Lymphocytes # (A) 1.9 k/uL (1.0-4.8); Lymphocytes % (A) 31 %; MCH 28.3 pg (25.0-35.0); MCHC 32.9 g/dL (31.0-37.0); Mean Platelet Volume 7.6; Monocytes # (A) 0.2 k/uL (0-1.0); Monocytes % (A) 4 %; Neutrophils # (A) 3.6 k/uL (1.3-7.7); Neutrophils % (A) 59 %; Platelet Count 274 k/uL (150-450); RBC 5.21 m/uL (4.30-5.90); RDW 14.6 % (11.5-15.5); WBC 6.1 k/uL (3.8-10.6)
[2019-01-12 09:23] LABS: ALT 22 U/L (21-72); AST 16 U/L (17-59); Albumin 4.2 g/dL (3.5-5.0); Alkaline Phosphatase 67 U/L (38-126); Anion Gap 7 mmol/L; Blood Urea Nitrogen 17 mg/dL (9-20); Calcium 9.5 mg/dL (8.4-10.2); Carbon Dioxide 27 mmol/L (22-30); Chloride 106 mmol/L (98-107); Cholesterol 179 mg/dL (<200); Glucose 155 mg/dL (74-99); HDL Cholesterol 33 mg/dL (40-60); LDL Cholesterol,Calculated 123 mg/dL (0-99); Potassium 4.4 mmol/L (3.5-5.1); Sodium 140 mmol/L (137-145); Total Bilirubin 0.7 mg/dL (0.2-1.3); Total Protein 7.2 g/dL (6.3-8.2); Triglycerides 113 mg/dL (<150)
[2019-01-12] MEDS: NICOTINE 14MG/24HR PATCH TRANSDERM SCH ×2 (09:33→11:02)
--- NOTE | 2019-01-12 10:14 | P.HP ---
Psychiatric H&P - . History & Physical: Allergies Allergy/AdvReac Type Severity Reaction Status Date / Time haloperidol Allergy Unknown Verified 01/10/19 20:46 Vital Signs Temp 98.2 F 01/11/19 17:00 Pulse 84 01/12/19 06:48 Resp 18 01/12/19 06:48 BP 123/78 01/12/19 06:48 Pulse Ox 97 01/11/19 17:00 Laboratory Last Values WBC 6.1 k/uL (3.8-10.6) 01/12/19 08:47 RBC 5.21 m/uL (4.30-5.90) 01/12/19 08:47 Hgb 14.7 gm/dL (13.0-17.5) 01/12/19 08:47 Hct 44.8 % (39.0-53.0) 01/12/19 08:47 MCV 86.0 fL (80.0-100.0) 01/12/19 08:47 MCH 28.3 pg (25.0-35.0) 01/12/19 08:47 MCHC 32.9 g/dL (31.0-37.0) 01/12/19 08:47 RDW 14.6 % (11.5-15.5) 01/12/19 08:47 Plt Count 274 k/uL (150-450) 01/12/19 08:47 Neutrophils % 59 % 01/12/19 08:47 Lymphocytes % 31 % 01/12/19 08:47 Monocytes % 4 % 01/12/19 08:47 Eosinophils % 3 % 01/12/19 08:47 Basophils % 1 % 01/12/19 08:47 Neutrophils # 3.6 k/uL (1.3-7.7) 01/12/19 08:47 Lymphocytes # 1.9 k/uL (1.0-4.8) 01/12/19 08:47 Monocytes # 0.2 k/uL (0-1.0) 01/12/19 08:47 Eosinophils # 0.2 k/uL (0-0.7) 01/12/19 08:47 Basophils # 0.1 k/uL (0-0.2) 01/12/19 08:47 Sodium 140 mmol/L (137-145) 01/12/19 08:47 Potassium 4.4 mmol/L (3.5-5.1) 01/12/19 08:47 Chloride 106 mmol/L (98-107) 01/12/19 08:47 Carbon Dioxide 27 mmol/L (22-30) 01/12/19 08:47 Anion Gap 7 mmol/L 01/12/19 08:47 BUN 17 mg/dL (9-20) 01/12/19 08:47 Creatinine 0.85 mg/dL (0.66-1.25) 01/12/19 08:47 Est GFR (CKD-EPI)AfAm >90 (>60 ml/min/1.73 sqM) 01/12/19 08:47 Est GFR (CKD-EPI)NonAf >90 (>60 ml/min/1.73 sqM) 01/12/19 08:47 Glucose 155 mg/dL (74-99) H 01/12/19 08:47 Calcium 9.5 mg/dL (8.4-10.2) 01/12/19 08:47 Total Bilirubin 0.7 mg/dL (0.2-1.3) 01/12/19 08:47 AST 16 U/L (17-59) L 01/12/19 08:47 ALT 22 U/L (21-72) 01/12/19 08:47 Alkaline Phosphatase 67 U/L (38-126) 01/12/19 08:47 Total Protein 7.2 g/dL (6.3-8.2) 01/12/19 08:47 Albumin 4.2 g/dL (3.5-5.0) 01/12/19 08:47 Triglycerides 113 mg/dL (<150) 01/12/19 08:47 Cholesterol 179 mg/dL (<200) 01/12/19 08:47 LDL Cholesterol, Calc 123 mg/dL (0-99) H 01/12/19 08:47 HDL Cholesterol 33 mg/dL (40-60) L 01/12/19 08:47 Urine Opiates Screen Not Detected (NotDetected) 01/10/19 20:36 Ur Oxycodone Screen Not Detected (NotDetected) 01/10/19 20:36 Urine Methadone Screen Not Detected (NotDetected) 01/10/19 20:36 Ur Propoxyphene Screen Not Detected (NotDetected) 01/10/19 20:36 Ur Barbiturates Screen Not Detected (NotDetected) 01/10/19 20:36 U Tricyclic Antidepress Not Detected (NotDetected) 01/10/19 20:36 Ur Phencyclidine Scrn Not Detected (NotDetected) 01/10/19 20:36 Ur Amphetamines Screen Detected (NotDetected) H 01/10/19 20:36 U Methamphetamines Scrn Detected (NotDetected) H 01/10/19 20:36 U Benzodiazepines Scrn Not Detected (NotDetected) 01/10/19 20:36 Urine Cocaine Screen Not Detected (NotDetected) 01/10/19 20:36 U Marijuana (THC) Screen Detected (NotDetected) H 01/10/19 20:36 01/12/19 09:43 IDENTIFYING DATA: This patient's is a 33-year-old male who was admitted to the mental health unit through the emergency room for suicidal ideation and acute psychosis HPI: The patient was admitted to the mental health unit through the emergency room for acute psychosis. The patient is well known to the psychiatric service and was last admitted here in August of this year. The patient's today states that she is expressing auditory hallucinations. He is receiving messages from the TV and radio acknowledging him as God and offering to kill people for him. He reports no visual hallucinations. He describes paranoid and persecutory feelings regarding the police and other people in the community. He feels overwhelmed by these symptoms and has had suicidal ideation. Several times he states that he can't survive without having a stimulant medication for his ADHD symptoms. He has a long-standing history of methamphetamine/amphetamine use disorder. He carries a diagnosis of schizoaffective disorder opiate use disorder cocaine use disorder cannabis use disorder as well. The patient was only willing to participate in the session briefly this morning. PAST PSYCHIATRIC HISTORY: The patient has had at least 13 inpatient psychiatric admissions the last one was in August of this year. He has been treated with numerous antipsychotics including Seroquel invega Clozaril etc. He frequently is noncompliant with medications. He does have a history of self-injurious behavior in his 20s. In 2007 he lacerated his left forearm which required numerous sutures PMH: none reported ALLERGIES: Haldol MEDICATIONS: Noncompliant with medication CHEMICAL DEPENDENCY HISTORY: The patient reports no recent use of alcohol although he has abused that in the past he has been using marijuana and methamphetamine and he will use prescribe stimulants he gets off of the street. His drug screen was positive for marijuana and amphetamines methamphetamine. He does have a history of abusing opioids including heroin and Suboxone. He has been in inpatient chemical dependency treatment at least 8 times the last one was approximately one year ago. FAMILY PSYCHIATRIC HISTORY: Unknown FAMILY CHEMICAL DEPENDENCY HISTORY: Unknown SOCIAL HISTORY: The patient's is 33 years old he is single he has no children he states he's been residing with an ex-girlfriend. He is unemployed he has a disability income. He has 1 brother and 1 sister. No history of service. He does have an extensive legal history has been arrested for robbery, car theft, uttering and publishing. He states he has a current charge of obstructing and resisting which occurred 2 weeks ago. His longest incarceration was 15 months. No abuse history reported. MENTAL STATUS EXAM: The patient is a tall male appearing his stated age she has a disheveled appearance his hair is grown out longer than usual. He is dressed in hospital gowns. He appears tired. He states his mood is depressed he is endorsing hopelessness thinking suicidal ideation. He is reporting no homicidal ideation. He describes auditory hallucinations as noted above, he endorses ideas of reference. He describes other paranoid persecutory thoughts as noted above. He demonstrates no verbal or physical aggressiveness. He demonstrated increased psychomotor activity as he had difficulty sitting still in the chair. He demonstrated no involuntary repetitive movements. He was not able to participate in any cognitive screening as he truncated the session. STRENGTHS/WEAKNESSES: Strengths: Disability income, weaknesses, ongoing substance use noncompliance with psychiatric care INTELLECTUAL FUNCTIONING: Likely below average IMPRESSIONS: [] 1. Schizoaffective disorder, opioid use disorder methamphetamine use disorder cocaine use disorder cannabis use disorder alcohol use disorder PLAN: The patient has been admitted to the mental health unit voluntarily. We reviewed his presenting symptoms and treatment options. He states that even though we used to claws role with his last admission he is not capable of maintaining the medication or the blood tests. With that said he spontaneously asked to be placed back on invega with a plan of us transitioning him to the Depo injection. He has no questions or concerns about invega. We will restart his Wellbutrin and trazodone. He will be seen by internal medicine for routine history and physical exam. Social work will meet with the patient to complete a psychosocial assessment and begin discharge planning. We were unable to have a conversation regarding inpatient chemical dependency treatment but this will be discussed during the course of his care. He is encouraged to participate in the milieu. We will monitor for any alcohol withdrawal symptoms.
[2019-01-12] MEDS ORDERED: PALIPERIDONE 6 MG TAB.ER.24 PO SCH (10:15)
[2019-01-12] MEDS: buPROPion XL 150 MG TAB.ER.24H PO SCH (11:01)
[2019-01-12] MEDS: ARIPiprazole 15 MG TAB PO SCH (12:04)
[2019-01-12 16:56] LABS: Appearance,Urine Clear (Clear); Bilirubin,Urine Negative (Negative); Blood,Urine Negative (Negative); Color,Urine Yellow; Glucose,Urine (UA) Negative (Negative); Ketones,Urine Negative (Negative); Leukocyte Esterase,Urine Trace (Negative); Nitrite,Urine Negative (Negative); PH, Urine 7.5 (5.0-8.0); Protein,Urine Negative (Negative); RBC,Urine 1 /hpf (0-5); Specific Gravity,Urine 1.025 (1.001-1.035); Urobilinogen,Urine <2.0 mg/dL (<2.0); WBC,Urine 7 /hpf (0-5)
[2019-01-12] MEDS ORDERED: ONDANSETRON 4 MG/2 ML VIAL IM STA (18:55)
[2019-01-12 19:12] LABS: Hemoglobin A1C 4.4 % (4.0-6.0)
[2019-01-12] MEDS ORDERED: traZODone HCL 50 MG TAB PO SCH (21:00)
[2019-01-13] MEDS: ACETAMINOPHEN TAB 325 MG TAB PO PRN ×2 (07:44→15:08)
[2019-01-13] MEDS: PANTOPRAZOLE 40 MG TABLET PO SCH (08:52)
[2019-01-13] MEDS: ARIPiprazole 15 MG TAB PO SCH (08:52)
[2019-01-13] MEDS: LORazepam 1 MG TAB PO PRN ×2 (08:52→16:46)
[2019-01-13] MEDS: NICOTINE 14MG/24HR PATCH TRANSDERM SCH (08:53)
[2019-01-13] MEDS: buPROPion XL 150 MG TAB.ER.24H PO SCH (08:53)
--- NOTE | 2019-01-13 15:56 | P.PN ---
Progress Note - Text Progress Note Date: 01/13/19 IDENTIFICATION DATA: This patient's is a 33-year-old male who was admitted to the mental health unit through the emergency room for suicidal ideation and acute psychosis. UDS POSITIVE FOR METH. He presented with auditory hallucinations. He is receiving messages from the TV and radio acknowledging him as God and offering to kill people for him. He describes paranoid and persecutory feelings regarding the police and other people in the community. He feels overwhelmed by these symptoms and has had suicidal ideation. INTERVAL HISTORY: Patient reports feeling better since being in the hospital. However he continues to reports getting messages from TV and therefore doesnt watch TV. He also claims his brain functions differently in reference to how he interprets music. He says he reads /listens to different words of music than being played. He reports feeling depressed, anxious with poor sleep, hyper energetic and agitated most of the time. He reports using illicit drugs instead of taking his prescribed medications. He currently states he wants to get back o n his medications, even though he doesnt consider getting messages from the TV is problem. He says Trazadone is not helping him with sleep and claims it made him more agitated. He wants to try a different medication for sleep. He also asked if he could stronger medication than ativan for anxiety. MENTAL STATUS EXAMINATION: Patient appears his stated age in fair grooming and hygiene. He maintains good eye contact. No abnormal movements noted. His speech and thought process are goal directed. His mood is reported as better and affect constricted. He reports on going auditory hallucinations. He denies visual hallucinations. He denies paranoid ideations. The patient is alert and oriented 4 and in no apparent distress. Denies suicidal or homicidal ideation. insight and judgment are improving ASSESSMENT Schizoaffective disorder, opioid use disorder methamphetamine use disorder cocaine use disorder cannabis use disorder alcohol use disorder PLAN: Will discontinue Trazadone as he reports worsening of agitation with it. He is willing to take remreon. Will start him on remaeron 7.5mg po qhs. Continue Wellbutrin, abilify
[2019-01-13] MEDS: MIRTAZAPINE 15 MG TAB PO SCH ×2 (21:46→22:45)
[2019-01-14] MEDS: PANTOPRAZOLE 40 MG TABLET PO SCH (07:47)
[2019-01-14] MEDS: NICOTINE 14MG/24HR PATCH TRANSDERM SCH (08:13)
[2019-01-14] MEDS: ARIPiprazole 15 MG TAB PO SCH (08:15)
[2019-01-14] MEDS: buPROPion XL 150 MG TAB.ER.24H PO SCH (08:15)
[2019-01-14] MEDS: ACETAMINOPHEN TAB 325 MG TAB PO PRN ×2 (09:04→16:08)
[2019-01-14] MEDS: LORazepam 1 MG TAB PO PRN ×2 (11:01→20:42)
[2019-01-14] MEDS ORDERED: ONDANSETRON 4 MG TAB PO STA (14:20)
--- NOTE | 2019-01-14 17:54 | P.PN ---
Progress Note - Text Progress Note Date: 01/14/19 IDENTIFICATION DATA: This patient's is a 33-year-old male who was admitted to the mental health unit through the emergency room for suicidal ideation and acute psychosis. UDS POSITIVE FOR METH. He presented with auditory hallucinations. He is receiving messages from the TV and radio acknowledging him as God and offering to kill people for him. He describes paranoid and persecutory feelings regarding the police and other people in the community. He feels overwhelmed by these symptoms and has had suicidal ideation. INTERVAL HISTORY: Patient reports feeling amotivated and contended with anything. He reports feeling irritable and claims he tries to move from one place to another place and attributes it to his ADHD. He states he can sit in one place for a longer period of time and says he is used to being on stimulant medications for his ADHD. Patient was explained that Wellbutrin also helps him to stay focused. He reports staying isolated, sad. He reports to have vomited once today and says he prefers to lay on his bed when he is not feeling well. He reports he only attended some groups today. MENTAL STATUS EXAMINATION: Patient appears his stated age in fair grooming and hygiene. He maintains good eye contact. No abnormal movements noted. His speech and thought process are goal directed. His mood is reported as SAD and affect constricted.. He denies current auditory or visual hallucinations. He reports vague paranoid ideations. The patient is alert and oriented 4 and in no apparent distress. Denies suicidal or homicidal ideation. insight and judgment are improving ASSESSMENT Schizoaffective disorder, opioid use disorder methamphetamine use disorder cocaine use disorder cannabis use disorder alcohol use disorder PLAN: Will increase the dose of wellbutrin to 300mg po qday as he reports worsening of depression Continue lorrie yee
[2019-01-14] MEDS: MIRTAZAPINE 15 MG TAB PO SCH (20:15)
[2019-01-15] MEDS: ARIPiprazole 15 MG TAB PO SCH (08:19)
[2019-01-15] MEDS: buPROPion XL 300 MG TAB.ER.24H PO SCH (08:19)
[2019-01-15] MEDS: PANTOPRAZOLE 40 MG TABLET PO SCH (08:19)
[2019-01-15] MEDS: NICOTINE 14MG/24HR PATCH TRANSDERM SCH (08:19)
[2019-01-15] MEDS: ACETAMINOPHEN TAB 325 MG TAB PO PRN ×2 (09:25→15:48)
[2019-01-15] MEDS: LORazepam 1 MG TAB PO PRN ×2 (09:34→17:38)
--- NOTE | 2019-01-15 10:08 | P.PN ---
Progress Note - Text Interval history: The patient is found in the hallway he follows me to an interview room. He indicates his mood is okay. He states that he continues to receive messages from the TV. He states that Alicia Monroe is having him tracked because he sent a letter to her several years ago. He states that he believes the Masons and the illuminati may be tracking him as well. He informs me that the stuff will never change and he does not want to take a medication just for that reason. He is agreeable to continuing the Abilify as it may help as a mood stabilizer. Again we discussed the option of attending rehab. He states he is giving that consideration. We discussed the steps he would take to initiate inpatient chemical dependency care. Mental status exam: The patient is alert he is dressed in his own clothing hygiene grooming adequate. Speech is fluent and spontaneous nonpressured. He continues to describe auditory hallucinations with paranoid persecutory thinking. It does appear that some of that is part of his chronic baseline. He does demonstrate some difficulty remaining calmly seated in the chair as he frequently changes position. There is some noted lateral movement of his jaw but is noticed for the first time today. It does appear to be repetitive and involuntary. He is reporting no suicidal or homicidal thoughts. Insight and judgment limited. He demonstrates no verbal or physical aggressiveness. Plan: The patient will remain on the Abilify. I will confer with the treatment team regarding his status compared to last week. We plan on initiating Abilify maintena during this hospitalization. He is encouraged to call access for inpatient chemical dependency treatment. He is encouraged to fully participate in the milieu. Vital signs reviewed. We will continue to assess him for safety. Once it appears he is approximated baseline function we will discharge him back to outpatient care.
[2019-01-15] MEDS: guaiFENesin 600 MG TABLET.ER PO PRN (10:23)
[2019-01-15] MEDS ORDERED: ARIPiprazole IM SYRINGE 400 MG (NO CHARGE) IM ONE (11:00)
[2019-01-15] MEDS ORDERED: diphenhydrAMINE 50 MG CAP PO STA (20:51)
[2019-01-15] MEDS: MELATONIN 5 MG TABLET PO SCH (21:03)
[2019-01-16] MEDS: LORazepam 1 MG TAB PO PRN ×2 (06:46→15:10)
[2019-01-16] MEDS: ACETAMINOPHEN TAB 325 MG TAB PO PRN ×2 (06:48→15:45)
[2019-01-16] MEDS: guaiFENesin 600 MG TABLET.ER PO PRN (07:12)
[2019-01-16] MEDS: PANTOPRAZOLE 40 MG TABLET PO SCH (08:28)
[2019-01-16] MEDS: NICOTINE 14MG/24HR PATCH TRANSDERM SCH (08:28)
[2019-01-16] MEDS: buPROPion XL 300 MG TAB.ER.24H PO SCH (08:28)
[2019-01-16] MEDS: ARIPiprazole 15 MG TAB PO SCH (08:28)
[2019-01-16] MEDS: ONDANSETRON ODT 4 MG TAB PO PRN ×2 (08:49→15:10)
--- NOTE | 2019-01-16 10:05 | P.PN ---
Progress Note - Text Interval history: The patient is found in the hallway he follows me to an interview room. He states that his mood is improving but he is worried about anxiety. We discussed using Vistaril as needed. He was requesting a benzodiazepine and then later requesting a stimulant but he was informed that those medications will be prescribed to him upon discharge. He has been accepted to [facility] for inpatient chemical dependency treatment tomorrow afternoon. He states his mother will be picking him up and bring him there. Mental status exam: The patient is alert he is dressed in his own clothing hygiene grooming adequate. Speech is fluent spontaneous nonpressured. He reports no suicidal or homicidal ideation intent or plan. He is reporting no auditory or visual hallucinations at this time. He does continue to have paranoid persecutory thoughts which may be part of his baseline. He demonstrates no verbal or physical aggressiveness. Thought process is becoming more organized. He demonstrates no verbal or physical aggressiveness. He does continue to demonstrate some lateral movement of his jaw which typically goes to the left. Plan: The patient is clinically stabilizing. We will anticipate discharging him tomorrow morning to go to inpatient chemical dependency treatment. Vital signs reviewed. He slept well last night we will monitor sleep this evening. Vistaril 50 mg up to 3 times daily will be added for anxiety if needed. He is encouraged to continue participating in the milieu. We will continue monitoring him for safety.
[2019-01-16] MEDS: hydrOXYzine PAMOATE 25 MG CAP PO PRN ×2 (10:06→20:59)
[2019-01-16] MEDS: MELATONIN 5 MG TABLET PO SCH (22:14)
[2019-01-17 06:38] VITALS: BP 114/65; PULSE 53; RESP 18; TEMP 98.2
[2019-01-17] MEDS: hydrOXYzine PAMOATE 25 MG CAP PO PRN (06:44)
[2019-01-17] MEDS: ACETAMINOPHEN TAB 325 MG TAB PO PRN (06:45)
[2019-01-17] MEDS: ONDANSETRON ODT 4 MG TAB PO PRN (07:50)
[2019-01-17] MEDS: PANTOPRAZOLE 40 MG TABLET PO SCH (07:53)
[2019-01-17] MEDS: buPROPion XL 300 MG TAB.ER.24H PO SCH (08:29)
[2019-01-17] MEDS: ARIPiprazole 15 MG TAB PO SCH (08:29)
[2019-01-17] MEDS: NICOTINE 14MG/24HR PATCH TRANSDERM SCH (08:30)
--- NOTE | 2019-01-17 09:16 | P.DS ---
Providers Date of admission: 01/11/19 14:19 Expected date of discharge: 01/17/19 Attending physician: Finn Steele Consults: 01/11/19 15:46 Consult Physician Routine Consulting Provider: Mark Nicole Consult Reason/Comments: H & P and medical care Do you want consulting provider notified?: Yes Primary care physician: Stated None - Discharge Diagnosis(es) (1) Schizoaffective disorder Current Visit: No Status: Acute Priority: High (2) Opioid use disorder Current Visit: No Status: Acute Priority: Medium (3) Methamphetamine use disorder, moderate Current Visit: No Status: Acute Priority: Medium (4) Cocaine use disorder Current Visit: Yes Status: Acute Priority: Medium (5) Cannabis use disorder, mild, abuse Current Visit: Yes Status: Acute Priority: Medium (6) Alcohol use disorder Current Visit: Yes Status: Acute Priority: Medium Hospital Course: Brief summary of admission note: This patient is a 33-year-old male who was admitted to the mental health unit through the emergency room for suicidal ideation and acute psychosis. The patient reported he was experiencing auditory hallucinations. He reported he was receiving messages from the TV and the radio acknowledging him as God and offering to kill people for him. He reported paranoid and persecutory thoughts regarding the police and other people in the community. He felt the symptoms were overwhelming and subsequently had suicidal ideation. The patient has a long-standing history of abusing numerous substances. His urine drug screen was positive for methamphetamine and marijuana upon admission. For full details please refer to my psychiatric evaluation dated 01/12/2019. Summary of hospital course: The patient was admitted to the mental health unit voluntarily. We reviewed his presenting symptoms and medication options. We were able to review records from [facility]. Ultimately we decided to reinitiate Abilify and he was given his first dose of Abilify maintena while on the mental health unit. His Wellbutrin was restarted and Vistaril was used for anxiety. He reports benefit from using melatonin for sleep. The patient's symptoms of psychosis slowly abated during the course of his hospitalization. He did begin participating in the milieu. He verbalized a desire to participate in inpatient chemical dependency treatment and this was arranged for him to star t at [facility] today. He was seen by internal medicine for routine history and physical exam. He demonstrated no agitated behavior. He reports a resolution of his psychosis and reports his suicidal ideation is gone. Mental status exam: The patient is alert he is dressed in his own clothing hygiene grooming are good. Speech is fluent spontaneous nonpressured. He reports mood is good affect is congruent. He denies having any suicidal or homicidal ideation intent or plan. He reports no auditory or visual hallucinations. He is reporting no specific delusions but is likely that he has some chronic residual delusional thought. He demonstrates no verbal or physical aggressiveness. In terms of involuntary movements he continues to have a lateral movement of his jaw. He demonstrates no tangential thinking loose associations or flight of ideas. He does not appear hypomanic or manic. Affect is appropriately expresses. He is oriented to person place and date. He spontaneously describes future oriented thinking. Impressions 1. Schizoaffective disorder, opioid use disorder, methamphetamine use disorder, cocaine use disorder, cannabis use disorder, alcohol use disorder Plan: The patient will be discharged mental health unit today. He will be starting inpatient chemical dependency treatment at [facility] at 1 PM. He states he plans on visiting his clinician at [facility] prior to starting [facility] today. The patient will continue on Abilify 15 mg daily for another 13 days then discontinue the oral dose. He has received the Abilify maintena injection 400 mg on 01/15/2019. He is due for his next dose of Abilify maintena 400 mg on 02/12/2019. He will continue on Wellbutrin XL 300 mg daily, Vistaril 50 mg up to 3 times daily as needed for anxiety, melatonin 5 mg at bedtime as needed for insomnia. At this time there is no imminent safety risk he is appropriate for transition to inpatient chemical dependency treatment. He is instructed to return to the hospital with any acute safety concerns. Patient Condition at Discharge: Stable Plan - Discharge Summary New Discharge Prescriptions: New ARIPiprazole [Abilify] 15 mg PO DAILY #12 tab ARIPiprazole IM [Abilify Maintena] 400 mg IM ONCE #1 each hydrOXYzine HCL [Atarax] 50 mg PO TID #45 tab Nicotine 14Mg/24Hr Patch [Habitrol] 1 patch TRANSDERM DAILY #14 patch Melatonin 5 mg PO HS #30 tablet buPROPion XL [Wellbutrin XL] 300 mg PO DAILY #30 tab.er.24h Discharge Medication List ARIPiprazole IM [Abilify Maintena] 400 mg IM ONCE #1 each 01/17/19 [Rx] ARIPiprazole [Abilify] 15 mg PO DAILY #12 tab 01/17/19 [Rx] Melatonin 5 mg PO HS #30 tablet 01/17/19 [Rx] Nicotine 14Mg/24Hr Patch [Habitrol] 1 patch TRANSDERM DAILY #14 patch 01/17/19 [Rx] buPROPion XL [Wellbutrin XL] 300 mg PO DAILY #30 tab.er.24h 01/17/19 [Rx] hydrOXYzine HCL [Atarax] 50 mg PO TID #45 tab 01/17/19 [Rx] Follow up Appointment(s)/Referral(s): intake,intake [Other] - 01/17/19 1:00 pm [facility] [Outside] - 01/24/19 1:30 pm (01-24-19 at 1:30 with Gianna Thomas ) [facility] [Outside] - 01/17/19 11:15 am (01-17-19 with Katy Hull at 11:15) None,Stated [Primary Care Provider] - 1-2 days Patient Instructions/Handouts: Depression (DC), Schizoaffective Disorder (DC), Methamphetamine Abuse (DC), Suicide Prevention (DC) Activity/Diet/Wound Care/Special Instructions: Activity and diet as tolerated. NO guns or weapons in the home. REFRAIN from alcohol and drugs not prescribed by your physician. Attend all follow up appointments as scheduled. Take all medications as prescribed. If in need of medication refills, please go to your primary care physician, or to your out patient psychiatric provider. If in crisis, please call , or go to the nearest ER.
[2019-01-17] MEDS: LORazepam 1 MG TAB PO PRN (09:29)
== END 2019-01-17 10:40 | disposition home or self-care (01) | DRG 885 ==
LOC: EC 18:46 → 3MHU 01-11 14:19
PROVIDERS: ADMIT Psychiatry & Neurology Psychiatry; ATTEND Psychiatry & Neurology Psychiatry
DX: F25.9 Schizoaffective disorder, unspecified (principal); F23 Brief psychotic disorder; R45.851 Suicidal ideations; F12.10 Cannabis abuse, uncomplicated; Z72.89 Other problems related to lifestyle; F11.90 Opioid use, unspecified, uncomplicated; F14.90 Cocaine use, unspecified, uncomplicated; F15.90 Other stimulant use, unspecified, uncomplicated; F17.200 Nicotine dependence, unspecified, uncomplicated; F31.9 Bipolar disorder, unspecified; F41.9 Anxiety disorder, unspecified; F90.9 Attention-deficit hyperactivity disorder, unspecified type; G47.00 Insomnia, unspecified; Z91.14 Patient's other noncompliance with medication regimen; Z91.5 Personal history of self-harm; Z88.8 Allergy status to other drugs, medicaments and biological substances
CPT/HCPCS: 80053; 80061; 80306; 81001; 82075; 83036; 84443; 85025; 96372; 99285

== ENCOUNTER 2019-02-22 16:17 | Emergency (ER) | payer OTHER ==
[2019-02-22 16:38] VITALS: BP 110/66; PULSE 75; RESP 16; TEMP 97.8
--- NOTE | 2019-02-22 17:30 | ED ---
General Adult HPI - General Chief complaint: Skin/Abscess/Foreign Body Stated complaint: SKIN INFECTION Time Seen by Provider: 02/22/19 16:45 Source: patient Mode of arrival: ambulatory Limitations: no limitations - History of Present Illness Initial comments: Patient is a 34-year-old male presents emergency Department with a rash on his forehead. Patient reports that he developed a rash on his forehead approximately 2 days ago after he was performing sexual encounters with his female partner. Patient reports he stopped using meth yesterday and feels little anxious. Patient reports the skin infection is itchy but denies fever, nausea, vomiting. Patient denies any erythema, edema or discharge from the lesion. Patient denies any trauma to the area. Patient denies taking any medication to alleviate the symptoms. - Related Data Previous Rx's Medication Instructions Recorded ARIPiprazole IM [Abilify Maintena] 400 mg IM ONCE #1 each 01/17/19 ARIPiprazole [Abilify] 15 mg PO DAILY #12 tab 01/17/19 Melatonin 5 mg PO HS #30 tablet 01/17/19 Nicotine 14Mg/24Hr Patch [Habitrol] 1 patch TRANSDERM DAILY #14 patch 01/17/19 buPROPion XL [Wellbutrin XL] 300 mg PO DAILY #30 tab.er.24h 01/17/19 hydrOXYzine HCL [Atarax] 50 mg PO TID #45 tab 01/17/19 Cephalexin [Keflex] 500 mg PO Q6HR #40 cap 02/22/19 Allergies Allergy/AdvReac Type Severity Reaction Status Date / Time haloperidol Allergy Unknown Verified 02/22/19 16:37 Review of Systems ROS Statement: Those systems with pertinent positive or pertinent negative responses have been documented in the HPI. ROS Other: All systems not noted in ROS Statement are negative. Past Medical History Additional Past Medical History / Comment(s): HEPATITIS C History of Any Multi-Drug Resistant Organisms: None Reported Past Surgical History: No Surgical Hx Reported Past Anesthesia/Blood Transfusion Reactions: No Reported Reaction Past Psychological History: ADD/ADHD, Anxiety, Bipolar, Schizoaffective Disorder Smoking Status: Current every day smoker Past Alcohol Use History: None Reported Past Drug Use History: Cocaine, Heroin, Marijuana, Methamphetamine - Past Family History family Family Medical History: No Reported History General Exam Limitations: no limitations General appearance: alert, anxious Head exam: Present: atraumatic, normocephalic. Absent: normal inspection (2 cm x 3 cm abrasion. ) Eye exam: Present: normal appearance ENT exam: Present: normal exam, mucous membranes moist, normal external ear exam Neck exam: Present: normal inspection, full ROM Respiratory exam: Present: normal lung sounds bilaterally Cardiovascular Exam: Present: regular rate, normal rhythm, normal heart sounds Extremities exam: Present: normal inspection, full ROM Back exam: Present: normal inspection, full ROM Neurological exam: Present: alert, oriented X3 Psychiatric exam: Present: normal affect, normal mood Skin exam: Present: warm, intact, normal color Course Vital Signs 02/22/19 16:35 Temperature 97.8 F Pulse Rate 75 Respiratory 16 Rate Blood Pressure 110/66 O2 Sat by Pulse 97 Oximetry Medical Decision Making - Medical Decision Making Patient is a 34-year-old male presents emergency Department with a rash on his forehead. Patient appears very anxious and continues to scratch himself. Patient appears to be in distress due to methamphetamine withdrawal. Patient appears to have an abrasion on his forehead. Triple antibiotic ointment was applied to the region. Patient will also be discharged with a 10 day course of Keflex. Strict return parameters were thoroughly discussed with patient who is understanding and agreeable. Patient advised to contact [facility] for help with illegal substance withdrawal. Patient declined assistance. Case discussed with physician. Disposition Clinical Impression: Abrasion Disposition: HOME SELF-CARE Condition: Stable Instructions (If sedation given, give patient instructions): [facility] (ED) Prescriptions: Cephalexin [Keflex] 500 mg PO Q6HR #40 cap Is patient prescribed a controlled substance at d/c from ED?: No Referrals: None,Stated [Primary Care Provider] - 1-2 days Time of Disposition: 17:29
== END 2019-02-22 17:46 | disposition home or self-care (01) ==
LOC: EC 16:17
DX: S00.81XA Abrasion of other part of head, initial encounter (principal); R21 Rash and other nonspecific skin eruption; F17.200 Nicotine dependence, unspecified, uncomplicated; Z86.19 Personal history of other infectious and parasitic diseases; Z88.8 Allergy status to other drugs, medicaments and biological substances; X58.XXXA Exposure to other specified factors, initial encounter
CPT/HCPCS: 99282

== ENCOUNTER 2019-10-28 20:43 | Inpatient (IN) | payer MEDICAID, OTHER ==
--- NOTE | 2019-10-28 21:10 | ED ---
General Adult HPI - General Source: patient, police Mode of arrival: ambulatory Limitations: no limitations <Jack Rosario - Last Filed: 10/28/19 21:10> <Surendra Chase - Last Filed: 10/29/19 11:52> - General Chief complaint: Psychiatric Symptoms Stated complaint: Mental health Time Seen by Provider: 10/28/19 20:55 - History of Present Illness Initial comments: Dictation was produced using K[employer] dictation software. please excuse any grammatical, word or spelling errors. Chief Complaint: 34-year-old male brought in by [facility] Department for psychiatric eval History of Present Illness: Is a 34-year-old male he has known history of illicit drug abuse. Patient is brought in by law enforcement. Patient was allegedly in a residential area soliciting and throwing multiple objects. Enforcement was called patient was brought to the emergency department. Patient was cooperative with [place] enforcement. Patient is a poor historian. Patient denies any medical complaints however. Patient has history of being admitted to psychiatric unit in the past. He reports using methamphetamine and heroin today. The ROS documented in this emergency department record has been reviewed and confirmed by me. Those systems with pertinent positive or negative responses have been documented in the HPI. All other systems are other negative and/or noncontributory. PHYSICAL EXAM: General Impression: Alert and oriented x3, not in acute distress HEENT: Normocephalic atraumatic, extra-ocular movements intact, pupils equal and reactive to light bilaterally, mucous membranes moist. Cardiovascular: Heart regular rate and rhythm, S1&S2 audible, no murmurs, rubs or gallops Chest: Lungs clear to auscultation bilaterally, no rhonchi, no wheeze, no rales Abdomen: Bowel sounds present, abdomen soft, non-tender, non-distended, no organomegaly Musculoskeletal: Pulses present and equal in all extremities, no peripheral edema Motor: no focal deficits noted Neurological: CN II-XII grossly intact, no focal motor or sensory deficits noted, extrapyramidal symptoms to facial muscles Skin: Intact with no visualized rashes Psych: Normal affect and mood ED course: 34 yo male with unknown medical history presents today with law enforcement for mental health evaluation. Vital signs upon arrival are within acceptable limits. Patient is a poor historian. (Jack Rosario) - Related Data Previous Rx's Medication Instructions Recorded ARIPiprazole IM [Abilify Maintena] 400 mg IM ONCE #1 each 01/17/19 ARIPiprazole [Abilify] 15 mg PO DAILY #12 tab 01/17/19 Melatonin 5 mg PO HS #30 tablet 01/17/19 Nicotine 14Mg/24Hr Patch [Habitrol] 1 patch TRANSDERM DAILY #14 patch 01/17/19 buPROPion XL [Wellbutrin XL] 300 mg PO DAILY #30 tab.er.24h 01/17/19 hydrOXYzine HCL [Atarax] 50 mg PO TID #45 tab 01/17/19 Cephalexin [Keflex] 500 mg PO Q6HR #40 cap 02/22/19 Allergies Allergy/AdvReac Type Severity Reaction Status Date / Time haloperidol Allergy Unknown Verified 02/22/19 16:37 Review of Systems ROS Other: All systems not noted in ROS Statement are negative. <Jack Rosario - Last Filed: 10/28/19 21:10> ROS Other: All systems not noted in ROS Statement are negative. <Surendra Chase - Last Filed: 10/29/19 11:52> ROS Statement: Those systems with pertinent positive or pertinent negative responses have been documented in the HPI. Past Medical History Additional Past Medical History / Comment(s): HEPATITIS C History of Any Multi-Drug Resistant Organisms: None Reported Past Surgical History: No Surgical Hx Reported Past Anesthesia/Blood Transfusion Reactions: No Reported Reaction Past Psychological History: ADD/ADHD, Anxiety, Bipolar, Schizoaffective Disorder Smoking Status: Current every day smoker Past Alcohol Use History: None Reported Past Drug Use History: Cocaine, Heroin, Marijuana, Methamphetamine - Past Family History family Family Medical History: No Reported History <Jack Rosario - Last Filed: 10/28/19 21:10> General Exam Limitations: no limitations <Jack Rosario - Last Filed: 10/28/19 21:10> Course Vital Signs 10/28/19 10/28/19 10/29/19 20:44 22:25 07:20 Temperature 98.1 F Pulse Rate 75 66 Respiratory 18 16 18 Rate Blood Pressure 113/72 O2 Sat by Pulse 100 99 Oximetry Medical Decision Making - Lab Data Result diagrams: 10/28/19 21:20 10/28/19 21:20 <Surendra Chase - Last Filed: 10/29/19 11:52> - Medical Decision Making Patient was seen by mental health services and admitted (Surendra Chase) - Lab Data Lab Results 10/28/19 10/28/19 10/28/19 Range/Units 21:20 21:20 23:37 WBC 10.8 H (3.8-10.6) k/uL RBC 4.54 (4.30-5.90) m/uL Hgb 13.5 (13.0-17.5) gm/dL Hct 40.1 (39.0-53.0) % MCV 88.3 (80.0-100.0) fL MCH 29.8 (25.0-35.0) pg MCHC 33.7 (31.0-37.0) g/dL RDW 12.9 (11.5-15.5) % Plt Count 361 (150-450) k/uL Neutrophils % 74 % Lymphocytes % 18 % Monocytes % 5 % Eosinophils % 1 % Basophils % 0 % Neutrophils # 8.0 H (1.3-7.7) k/uL Lymphocytes # 2.0 (1.0-4.8) k/uL Monocytes # 0.5 (0-1.0) k/uL Eosinophils # 0.1 (0-0.7) k/uL Basophils # 0.0 (0-0.2) k/uL Sodium 135 L (137-145) mmol/L Potassium 4.6 (3.5-5.1) mmol/L Chloride 97 L (98-107) mmol/L Carbon Dioxide 23 (22-30) mmol/L Anion Gap 15 mmol/L BUN 29 H (9-20) mg/dL Creatinine 0.87 (0.66-1.25) mg/dL Est GFR (CKD-EPI)AfAm >90 (>60 ml/min/1.73 sqM) Est GFR (CKD-EPI)NonAf >90 (>60 ml/min/1.73 sqM) Glucose 57 L (74-99) mg/dL POC Glucose (mg/dL) 153 H (75-99) mg/dL POC Glu Puppet Maker ID Lauri Liary Calcium 9.2 (8.4-10.2) mg/dL Serum Alcohol <10 mg/dL 10/29/19 10/29/19 Range/Units 01:34 07:20 WBC (3.8-10.6) k/uL RBC (4.30-5.90) m/uL Hgb (13.0-17.5) gm/dL Hct (39.0-53.0) % MCV (80.0-100.0) fL MCH (25.0-35.0) pg MCHC (31.0-37.0) g/dL RDW (11.5-15.5) % Plt Count (150-450) k/uL Neutrophils % % Lymphocytes % % Monocytes % % Eosinophils % % Basophils % % Neutrophils # (1.3-7.7) k/uL Lymphocytes # (1.0-4.8) k/uL Monocytes # (0-1.0) k/uL Eosinophils # (0-0.7) k/uL Basophils # (0-0.2) k/uL Sodium (137-145) mmol/L Potassium (3.5-5.1) mmol/L Chloride (98-107) mmol/L Carbon Dioxide (22-30) mmol/L Anion Gap mmol/L BUN (9-20) mg/dL Creatinine (0.66-1.25) mg/dL Est GFR (CKD-EPI)AfAm (>60 ml/min/1.73 sqM) Est GFR (CKD-EPI)NonAf (>60 ml/min/1.73 sqM) Glucose (74-99) mg/dL POC Glucose (mg/dL) 77 117 H (75-99) mg/dL POC Glu Puppet Maker ID ReeceSusy damian Blain Calcium (8.4-10.2) mg/dL Serum Alcohol mg/dL Disposition <Jack Rosario - Last Filed: 10/28/19 21:10> Is patient prescribed a controlled substance at d/c from ED?: No <Surendra Chase - Last Filed: 10/29/19 11:52> Clinical Impression: Acute psychosis Disposition: TRANSFER TO PSYCH HOSP/UNIT Referrals: None,Stated [Primary Care Provider] - 1-2 days
[2019-10-28 21:36] LABS: Basophils % (A) 0 %; Eosinophils # (A) 0.1 k/uL (0-0.7); Eosinophils % (A) 1 %; HCT 40.1 % (39.0-53.0); HGB 13.5 gm/dL (13.0-17.5); Lymphocytes % (A) 18 %; MCH 29.8 pg (25.0-35.0); MCHC 33.7 g/dL (31.0-37.0); MCV 88.3 fL (80.0-100.0); Mean Platelet Volume 7.5; Monocytes # (A) 0.5 k/uL (0-1.0); Monocytes % (A) 5 %; Neutrophils % (A) 74 %; Platelet Count 361 k/uL (150-450); RBC 4.54 m/uL (4.30-5.90); RDW 12.9 % (11.5-15.5); WBC 10.8 k/uL (3.8-10.6)
[2019-10-28] MEDS ORDERED: LORazepam 2 MG/ML INJ IM STA (21:38)
[2019-10-28 21:41] LABS: African American GFR (CKD) >90 (>60 ml/min/1.73 sqM); Alcohol <10 mg/dL; Anion Gap 15 mmol/L; Blood Urea Nitrogen 29 mg/dL (9-20); Calcium 9.2 mg/dL (8.4-10.2); Carbon Dioxide 23 mmol/L (22-30); Chloride 97 mmol/L (98-107); Glucose 57 mg/dL (74-99); Non-African American GFR(CKD) >90 (>60 ml/min/1.73 sqM); Potassium 4.6 mmol/L (3.5-5.1); Sodium 135 mmol/L (137-145)
[2019-10-28] MEDS ORDERED: MIDAZOLAM 1 MG/ML 5 ML VIAL IV STA (22:06)
[2019-10-28 23:39] LABS: Glucose,Whole Blood 153 mg/dL (75-99)
[2019-10-29 01:36] LABS: Glucose,Whole Blood 77 mg/dL (75-99)
[2019-10-29] MEDS ORDERED: diphenhydrAMINE 50 MG/ML 1 ML VIAL IM STA (02:47)
[2019-10-29] MEDS ORDERED: LORazepam 2 MG/ML INJ IM STA ×2 (02:48→10:50)
[2019-10-29] MEDS ORDERED: OLANZapine 10 MG VIAL IM STA (03:00)
[2019-10-29] MEDS ORDERED: KETAMINE 10 MG/ML 20 ML VIAL IV ONE (03:27)
[2019-10-29 07:22] LABS: Glucose,Whole Blood 117 mg/dL (75-99)
[2019-10-29] MEDS ORDERED: ZIPRASIDONE 20 MG VIAL IM STA (11:51)
[2019-10-29] MEDS ORDERED: MAGNESIUM HYDROXIDE 2,400 MG/10 ML CUP PO PRN (12:51)
[2019-10-29] MEDS ORDERED: ZIPRASIDONE 20 MG VIAL IM PRN (12:51)
--- NOTE | 2019-10-29 18:02 | P.MDCNMH ---
History of Present Illness H&P Date: 10/29/19 Chief Complaint: Medical management 34-year-old male with PMH of polysubstance abuse presents the ED after being brought by law enforcement for erratic behavior. He has been admitted to the mental health unit. [facility] physicians has been consulted for medical management of this patient. Patient appears under the influence and majority of history was obtained from charting. Patient reports using cocaine, methamphetamine and heroin today. He otherwise has no complaints. He denies any headaches, nausea or vomiting, fever or chills, cough, chest pain, shortness of breath, palpitations, changes in urination or bowel habits. No changes in appetite or weight. No dizziness, numbness/weakness/tingling of the extremities. Review of Systems Pertinent positives and negatives as discussed in HPI, a complete review of syst ems was performed and all other systems are negative. Past Medical History Additional Past Medical History / Comment(s): HEPATITIS C History of Any Multi-Drug Resistant Organisms: None Reported Past Surgical History: No Surgical Hx Reported Past Anesthesia/Blood Transfusion Reactions: No Reported Reaction Past Psychological History: ADD/ADHD, Anxiety, Bipolar, Schizoaffective Disorder Smoking Status: Current every day smoker Past Alcohol Use History: None Reported Past Drug Use History: Cocaine, Heroin, Marijuana, Methamphetamine - Past Family History family Family Medical History: No Reported History Medications and Allergies Home Medications Medication Instructions Recorded Confirmed Type Buprenorphine HCl/Naloxone HCl 1 film SUBLINGUAL BID 10/29/19 10/29/19 History [Suboxone 8 mg-2 mg Sl Film] Allergies Allergy/AdvReac Type Severity Reaction Status Date / Time haloperidol Allergy Unknown Verified 10/29/19 14:41 Physical Exam Vitals: Vital Signs Temp Pulse Pulse Resp BP BP Pulse Ox 10/29/19 12:55 96.8 F L 71 16 115/62 95 10/29/19 12:49 97.9 F 73 19 121/78 99 10/29/19 07:20 66 18 113/72 99 10/28/19 22:25 16 10/28/19 20:44 98.1 F 75 18 100 General: [non toxic], [appears under the influence], [appears at stated age] Derm: [warm], [dry] Head: [atraumatic], [normocephalic], [symmetric] Eyes: [EOMI], [no lid lag], [anicteric sclera] Mouth: [no lip lesion], [mucus membranes moist] Cardiovascular: [S1S2 reg], [no murmur], [positive DP pulse bilateral], Lungs: [CTA bilateral], [no rhonchi, no rales] , [no accessory muscle use] Abdominal: [soft], [ nontender to palpation], [no guarding], [no appreciable organomegaly] Ext: [no gross muscle atrophy], [no edema], [no contractures] Neuro: [no focal neuro deficits] Psych: [Alert], [oriented], [appropriate affect] Cranial Nerve Examination - Cranial Nerves Cranial Nerve II- Optic: Intact Cranial Nerve III- Oculomotor: Intact Cranial Nerve IV- Trochlear: Intact Cranial Nerve V- Trigeminal: Intact Cranial Nerve - Abducens: Intact Cranial Nerve VII- Facial: Intact Cranial Nerve VIII- Auditory: Intact Cranial Nerve IX- Glossopharyngeal: Intact Cranial Nerve X- Vagus: Intact Cranial Nerve XI- Accessory: Intact Cranial Nerve XII- Hypoglossal: Intact Results CBC & Chem 7: 10/28/19 21:20 10/28/19 21:20 Labs: Abnormal Lab Results - Last 24 Hours (Table) 10/28/19 10/28/19 10/28/19 Range/Units 21:20 21:20 23:37 WBC 10.8 H (3.8-10.6) k/uL Neutrophils # 8.0 H (1.3-7.7) k/uL Sodium 135 L (137-145) mmol/L Chloride 97 L (98-107) mmol/L BUN 29 H (9-20) mg/dL Glucose 57 L (74-99) mg/dL POC Glucose (mg/dL) 153 H (75-99) mg/dL 10/29/19 Range/Units 07:20 WBC (3.8-10.6) k/uL Neutrophils # (1.3-7.7) k/uL Sodium (137-145) mmol/L Chloride (98-107) mmol/L BUN (9-20) mg/dL Glucose (74-99) mg/dL POC Glucose (mg/dL) 117 H (75-99) mg/dL Assessment and Plan Assessment: Polysubstance abuse Leukocytosis Elevated BUN Hypoglycemia Patient admits to using cocaine, methamphetamine and heroin today. He will be given Ativan as needed for agitation. Patient was noted to have leukocytosis of 10.8 neutrophil predominance. This is likely reactive as patient does not show any signs of infection. His blood glucose of 57 possibly be related to lack of oral intake from his drug use. His subsequent accuchecks have been within normal limits. His elevated BUN of 29 is likely related to dehydration and patient is encourage hydration by mouth. Thank you for this consult. Please call with any additional questions or concerns.
[2019-10-30] MEDS: NICOTINE 21MG/24HR PATCH TRANSDERM SCH (09:05)
[2019-10-30 09:10] LABS: Basophils % (A) 0 %; Eosinophils # (A) 0.2 k/uL (0-0.7); Eosinophils % (A) 3 %; HCT 42.2 % (39.0-53.0); Lymphocytes # (A) 3.5 k/uL (1.0-4.8); Lymphocytes % (A) 52 %; MCH 29.9 pg (25.0-35.0); MCHC 33.3 g/dL (31.0-37.0); MCV 89.7 fL (80.0-100.0); Mean Platelet Volume 7.7; Monocytes # (A) 0.4 k/uL (0-1.0); Monocytes % (A) 6 %; Neutrophils # (A) 2.4 k/uL (1.3-7.7); Neutrophils % (A) 37 %; Platelet Count 337 k/uL (150-450); RDW 13.1 % (11.5-15.5); WBC 6.7 k/uL (3.8-10.6)
[2019-10-30 09:21] LABS: ALT 65 U/L (4-49); AST 48 U/L (17-59); African American GFR (CKD) >90 (>60 ml/min/1.73 sqM); Albumin 3.8 g/dL (3.5-5.0); Alkaline Phosphatase 77 U/L (38-126); Anion Gap 7 mmol/L; Blood Urea Nitrogen 15 mg/dL (9-20); Calcium 8.8 mg/dL (8.4-10.2); Carbon Dioxide 28 mmol/L (22-30); Chloride 102 mmol/L (98-107); Glucose 75 mg/dL (74-99); Non-African American GFR(CKD) >90 (>60 ml/min/1.73 sqM); Potassium 4.5 mmol/L (3.5-5.1); Sodium 137 mmol/L (137-145); Total Bilirubin 0.4 mg/dL (0.2-1.3); Total Protein 6.9 g/dL (6.3-8.2)
[2019-10-30] MEDS ORDERED: hydrOXYzine PAMOATE 25 MG CAP PO PRN (12:24)
--- NOTE | 2019-10-30 12:34 | P.HP ---
Psychiatric H&P - . H&P Date: 10/30/19 History & Physical: Allergies Allergy/AdvReac Type Severity Reaction Status Date / Time haloperidol Allergy Unknown Verified 10/29/19 14:41 Vital Signs Temp 97.6 F 10/30/19 04:39 Pulse 73 10/30/19 04:39 Resp 16 10/30/19 04:39 BP 146/79 10/30/19 04:39 Pulse Ox 98 10/30/19 04:39 Laboratory Last Values WBC 6.7 k/uL (3.8-10.6) 10/30/19 08:43 RBC 4.70 m/uL (4.30-5.90) 10/30/19 08:43 Hgb 14.0 gm/dL (13.0-17.5) 10/30/19 08:43 Hct 42.2 % (39.0-53.0) 10/30/19 08:43 MCV 89.7 fL (80.0-100.0) 10/30/19 08:43 MCH 29.9 pg (25.0-35.0) 10/30/19 08:43 MCHC 33.3 g/dL (31.0-37.0) 10/30/19 08:43 RDW 13.1 % (11.5-15.5) 10/30/19 08:43 Plt Count 337 k/uL (150-450) 10/30/19 08:43 Neutrophils % 37 % 10/30/19 08:43 Lymphocytes % 52 % 10/30/19 08:43 Monocytes % 6 % 10/30/19 08:43 Eosinophils % 3 % 10/30/19 08:43 Basophils % 0 % 10/30/19 08:43 Neutrophils # 2.4 k/uL (1.3-7.7) 10/30/19 08:43 Lymphocytes # 3.5 k/uL (1.0-4.8) 10/30/19 08:43 Monocytes # 0.4 k/uL (0-1.0) 10/30/19 08:43 Eosinophils # 0.2 k/uL (0-0.7) 10/30/19 08:43 Basophils # 0.0 k/uL (0-0.2) 10/30/19 08:43 Sodium 137 mmol/L (137-145) 10/30/19 08:43 Potassium 4.5 mmol/L (3.5-5.1) 10/30/19 08:43 Chloride 102 mmol/L (98-107) 10/30/19 08:43 Carbon Dioxide 28 mmol/L (22-30) 10/30/19 08:43 Anion Gap 7 mmol/L 10/30/19 08:43 BUN 15 mg/dL (9-20) 10/30/19 08:43 Creatinine 0.68 mg/dL (0.66-1.25) 10/30/19 08:43 Est GFR (CKD-EPI)AfAm >90 (>60 ml/min/1.73 sqM) 10/30/19 08:43 Est GFR (CKD-EPI)NonAf >90 (>60 ml/min/1.73 sqM) 10/30/19 08:43 Glucose 75 mg/dL (74-99) 10/30/19 08:43 POC Glucose (mg/dL) 117 mg/dL (75-99) H 10/29/19 07:20 POC Glu [employer] Of [employer] NARCISA Abraham Morfinin 10/29/19 07:20 Calcium 8.8 mg/dL (8.4-10.2) 10/30/19 08:43 Total Bilirubin 0.4 mg/dL (0.2-1.3) 10/30/19 08:43 AST 48 U/L (17-59) 10/30/19 08:43 ALT 65 U/L (4-49) H 10/30/19 08:43 Alkaline Phosphatase 77 U/L (38-126) 10/30/19 08:43 Total Protein 6.9 g/dL (6.3-8.2) 10/30/19 08:43 Albumin 3.8 g/dL (3.5-5.0) 10/30/19 08:43 TSH 2.780 mIU/L (0.465-4.680) 10/30/19 08:43 Serum Alcohol <10 mg/dL 10/28/19 21:20 10/30/19 11:35 IDENTIFYING DATA: Patient is a 34-year-old male with a history of schizoaffective disorder and polysubstance abuse who is currently homeless HPI: Patient presented to the hospital accompanied by local police for a psych evaluation. Patient was allegedly found in the residential area soliciting and throwing multiple objects as per ER report. Patient was petitioned by police for acting bizarre. Patient received multiple when necessary medications for agitation in the ER and was admitted to the mental health unit. Patient was seen this morning and appeared to be disheveled, lethargic and bizarre in appearance. He was tangential/circumstantial and illogical at times. Patient was guarded/evasive about the events that occurred prior to him coming to the hospital and spoke about his "rights being violated" by the police and how he was not throwing any objects and causing any trouble to anybody. Patient has poor insight and judgment and was intrusive during conversation. She states that "the posting clerk said I was looking suspicious". He claims that he was using methamphetamine however was guarded about the quantity and states that he is also using Suboxone. He states that his mood is "okay" at this time and denies any depression however states that he is feeling sick from withdrawals. He states that he is having cold sweats and nausea and restlessness and was requesting to be put on Suboxone again. Patient denies any suicidal or homicidal ideations intent or plan. At this time patient denies any auditory or visual hallucinations. Patient denies any flight of ideas racing thoughts and increased in goal directed behavior. Patient admits to using methamphetamine approximately 1/4 g per day, states that he is smoking cigarettes and on Suboxone taking approximately what strip twice a day. He denies being on any other opiates or heroin at this time. PAST PSYCHIATRIC HISTORY: Patient states that he has a history of schizo affective disorder with multiple hospitalizations. Patient was last admitted to the mental health unit on 12/2018. He was previously on Abilify Maintenna for several months however stopped following up at [facility]. Patient denies any previous history of suicide attempts PMH: Hepatitis C ALLERGIES: as per EMR CHEMICAL DEPENDENCY HISTORY: as per HPI FAMILY PSYCHIATRIC/SUBSTANCE USE HISTORY: denies SOCIAL HISTORY: Patient was born and raised in [place] and claims that he "moved around all over". He claims that he is single as and was previously in retirement and got out on October 10 and was charged with breaking and entering. He currently collects Social Security. MENTAL STATUS EXAM: General Appearance: Patient appears to be older than stated age is lethargic, bizarre intrusive and uncooperative. Patient appears to have disheveled hygiene and grooming. Behavior: Patient is seated without any agitated behavior. Argumentative/intrusive. Speech: Patient's speech is fluent and nonpressured. Mood/Affect: Patient reports their mood is "okay", affect is incongruent and constricted. Suicidality/Homicidality: Patient denies having any homicidal ideation intent or plan. Denies any suicidal ideations intent or plan Perceptions: Patient denies any visual hallucinations and denies any auditory hallucinations Though content/process: Disorganized thought process, argumentative, illogical at times. Memory and concentration: AOX3, grossly intact for the purposes of this session. Can spell "WORLD" backwards Judgment and insight: poor/impulsive STRENGTHS/WEAKNESSES: strength is that patient is resilient. Weakness is that patient has poor judgment and is impulsive INTELLECT: average IMPRESSIONS: Schizoaffective disorder Methamphetamine/stimulant use disorder Opioid dependence Nicotine dependence PLAN: -Patient is admitted under involuntary status to MHU for stabilization of psychiatric symptoms and safety. A second certification was completed and along with petition will be filed for court. -Medications : Will start patient on Abilify 2.5 mg daily for mood stabilization/psychosis, with plan to place patient back on Abilify Maintenna injection. We will start Vistaril 50 mg 3 times a day when necessary for anxiety. Will also start melatonin 5 mg daily at bedtime for sleep. catapres, dicyclomine and tylenol PRN to help with opioid withdrawal sxs. -Ativan and Geodon PRN for agitation/aggression -Patient was counselled on substance abuse and desired to cut back on use. Patient was superficial however somewhat open to the idea of going back to rehab. -Patient was informed of the risks, benefits and side effects of the medication and patient verbally consented to taking the medications. Patient signed med consent form and was placed in chart. -Internal Medicine consult to perform medical evaluation and physical. -NRT - nicotine patch -SW on board for discharge planning. Encourage patient to participate in groups to work on coping skills. We'll continue to work with patient on possibly going to rehab upon discharge. 10/30/19 12:25
[2019-10-30] MEDS ORDERED: DICYCLOMINE 20 MG TAB PO PRN (12:35)
[2019-10-30] MEDS: ARIPiprazole 5 MG TAB PO SCH (13:39)
[2019-10-30] MEDS: MELATONIN 3 MG TABLET PO SCH (21:00)
[2019-10-31] MEDS: NICOTINE 21MG/24HR PATCH TRANSDERM SCH (10:04)
[2019-10-31] MEDS: ARIPiprazole 5 MG TAB PO SCH (10:04)
--- NOTE | 2019-10-31 10:34 | P.PN ---
Progress Note - Text Progress Note Date: 10/31/19 Interval History: Patient was seen sleeping on the couch during group and was directable and agr eeable to speak with typewriter repairer in the office. And appears to have largely improved hygiene/grooming today. He continues to have poor insight and was somewhat argumentative with typewriter repairer. Patient does have mild paranoia at times. He was concrete/guarded. Process. He did not offer any overnight complaints and states that his withdrawal symptoms have been improving and has not been taking Catapres. He states that he slept to the night and has been taking his Abilify and is agreeable to have it increased. He states that his mood is "fine" today and denies any anxiety. At this time patient denies any suicidal or homical ideations, intent or plan. Patient denies any auditory, visual hallucinations and denies any paranoia or delusions. Patient denies any side effects from the medications and has been compliant with meds. Mental Status Exam: General Appearance: Patient appears to be older than stated age has long hair and unshaven and is directable, guarded and uncooperative. Patient appears to have mildly improved hygiene and grooming. Behavior: Patient is seated without any agitated behavior. Uncooperative/guarded. Speech: Patient's speech is fluent and nonpressured. Mood/Affect: Patient reports their mood is "fine", affect is incongruent and constricted. Suicidality/Homicidality: Patient denies having any homicidal ideation intent or plan. Denies any suicidal ideations intent or plan Perceptions: Patient denies any visual hallucinations and denies any auditory hallucinations Though content/process: More organized thought process, uncooperative/guarded. Logical, concrete. Memory and concentration: AOX3, grossly intact for the purposes of this session. Can spell "WORLD" backwards Judgment and insight: poor/impulsive, mildly improving Assessment Schizoaffective disorder Methamphetamine/stimulant use disorder Opioid dependence Nicotine dependence Plan: -Patient continues to meet criteria for inpatient psychiatric admission for symptom stabilization and safety. Patient has signed medication consent and was placed in patient's chart. -Medications: Increased Abilify to 5 mg daily for mood stabilization/psychosis, with plan to place patient back on Abilify Maintenna injection. Continue with Vistaril 50 mg 3 times a day when necessary for anxiety. Continue melatonin 5 mg daily at bedtime for sleep. catapres, dicyclomine and tylenol PRN to help with opioid withdrawal sxs. -When necessary Ativan and Geodon for agitation/aggression. -NRT - nicotine patch -SW on board for discharge planning. Encouraged the patient to participate in milieu. Currently awaiting deferral date and court date as patient is involuntary at this time. We'll continue to pursue inpatient rehab for patient.
[2019-10-31] MEDS: MELATONIN 3 MG TABLET PO SCH (20:28)
[2019-11-01] MEDS ORDERED: ARIPiprazole 5 MG TAB PO SCH (09:00)
--- NOTE | 2019-11-01 09:55 | P.PN ---
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 He has improving insight and judgment. He continues to be concrete/guarded in his thought Process. He states that he had difficulties with sleep last night and requested to have another medication added on to help him with sleep. He states that his withdrawal symptoms have been improving gradually and has not been taking Catapres yet. Patient states that he has been going to some groups however not finding the beneficial. He continues to be agreeable to take his Abilify and is agreeable to have it increased gradually. He states that his mood is "ok" today and denies any anxiety. At this time patient denies any suicidal or homical ideations, intent or plan. Patient denies any auditory, visual hallucinations and denies any paranoia or delusions. Patient denies any side effects from the medications and has been compliant with meds. Mental Status Exam: General Appearance: Patient appears to be older than stated age has long hair and unshaven and is directable, guarded. Patient appears to have mildly improved hygiene and grooming. Behavior: Patient is seated without any agitated behavior. More cooperative today. Speech: Patient's speech is fluent and nonpressured. Mood/Affect: Patient reports their mood is "ok", affect is incongruent and constricted. Suicidality/Homicidality: Patient denies having any homicidal ideation intent or plan. Denies any suicidal ideations intent or plan Perceptions: Patient denies any visual hallucinations and denies any auditory hallucinations Though content/process: More organized thought process, guarded. Logical, concrete. Memory and concentration: AOX3, grossly intact for the purposes of this session. Can spell "WORLD" backwards Judgment and insight: poor/impulsive, mildly improving Assessment Schizoaffective disorder Methamphetamine/stimulant use disorder Opioid dependence Nicotine dependence Plan: -Patient continues to meet criteria for inpatient psychiatric admission for symptom stabilization and safety. Patient has signed medication consent and was placed in patient's chart. -Medications: We'll increase Abilify 7.5 mg daily for mood stabilization/psychosis, with plan to place patient back on Abilify Maintenna injection. Will change Vistaril to 50 mg daily at bedtime for sleep/anxiety. C ontinue melatonin 5 mg daily at bedtime for sleep. catapres, dicyclomine and tylenol PRN to help with opioid withdrawal sxs. -When necessary Ativan and Geodon for agitation/aggression. -NRT - nicotine patch -SW on board for discharge planning. Encouraged the patient to participate in milieu. Deferral date set for today and court date set for next Tuesday. We'll continue to pursue inpatient rehab for patient.
[2019-11-01] MEDS: NICOTINE 21MG/24HR PATCH TRANSDERM SCH (10:21)
[2019-11-01] MEDS: ACETAMINOPHEN TAB 325 MG TAB PO PRN (14:02)
[2019-11-01] MEDS: LORazepam 1 MG TAB PO PRN (14:02)
[2019-11-01] MEDS: hydrOXYzine PAMOATE 25 MG CAP PO SCH (20:37)
[2019-11-01] MEDS: MELATONIN 5 MG TABLET PO SCH (20:37)
[2019-11-02] MEDS: NICOTINE 21MG/24HR PATCH TRANSDERM SCH (08:42)
[2019-11-02] MEDS ORDERED: ARIPiprazole 5 MG TAB PO SCH (09:00)
[2019-11-02] MEDS: LORazepam 1 MG TAB PO PRN (09:08)
--- NOTE | 2019-11-02 11:59 | P.PN ---
Progress Note - Text Progress Note Date: 11/02/19 Interval History: Patient was seen laying down in his bed this morning and was directable and ag reeable speak to health underwriter. He appears to have mildly improved hygiene/grooming today, however appears to be mildly more lethargic and was complaining of withdrawal symptoms. He states that he is having some stomach cramping and nausea and requested for medications when necessary. He states that he did sleep better last night with the Vistaril and would like to continue on the same dose. He has improving insight and judgment. He spoke about signing the deferral for treatment from the porcelain enameler yesterday. He is continuing to take his medications and is agreeable to have the long-acting Abilify prior to discharge. He spoke about still wanting to go to rehab however was hesitant to make the call yesterday and was encouraged to do so today. Patient states that he has been going to some groups and finding them beneficial. He states that his mood is "ok" today and denies any anxiety. At this time patient denies any suicidal or homical ideations, intent or plan. Patient denies any auditory, visual hallucinations and denies any paranoia or delusions. Patient denies any side effects from the medications and has been compliant with meds. Mental Status Exam: General Appearance: Patient appears to be older than stated age has long hair and unshaven and is directable, guarded. Patient appears to have mildly improved hygiene and grooming. Behavior: Patient is seated without any agitated behavior. More cooperative today. In mild distress secondary to withdrawal symptoms. Speech: Patient's speech is fluent and nonpressured. Mood/Affect: Patient reports their mood is "fine", affect is congruent and constricted. Suicidality/Homicidality: Patient denies having any homicidal ideation intent or plan. Denies any suicidal ideations intent or plan Perceptions: Patient denies any visual hallucinations and denies any auditory hallucinations Though content/process: More organized thought process, less guarded. Logical, concrete. Memory and concentration: AOX3, grossly intact for the purposes of this session. Can spell "WORLD" backwards Judgment and insight: poor, mildly improving Assessment Schizoaffective disorder Methamphetamine/stimulant use disorder Opioid dependence Nicotine dependence Plan: -Patient continues to meet criteria for inpatient psychiatric admission for symptom stabilization and safety. Patient has signed medication consent and was placed in patient's chart. -Medications: We'll increase Abilify 10 mg daily for mood stabilization/psychosis, with plan to place patient back on Abilify Maintenna injection early next week. Will continue with Vistaril to 50 mg daily at bedtime for sleep/anxiety. Continue melatonin 5 mg daily at bedtime for sleep. catapres, dicyclomine, Zofran and tylenol PRN to help with opioid withdrawal sxs. -When necessary Ativan and Geodon for agitation/aggression. -NRT - nicotine patch -SW on board for discharge planning. Encouraged the patient to participate in milieu. Patient signed deferral on 11/01/2019. We'll continue to pursue inpatient rehab for patient, patient to make the call for intake today. Likely discharge her early next week after receiving Abilify Maintenna dose.
[2019-11-02] MEDS: cloNIDine HCL 0.1 MG TAB PO PRN (15:29)
[2019-11-02] MEDS: ONDANSETRON 4 MG TAB PO PRN (15:29)
[2019-11-02] MEDS: MELATONIN 5 MG TABLET PO SCH (20:36)
[2019-11-02] MEDS: hydrOXYzine PAMOATE 25 MG CAP PO SCH (20:36)
[2019-11-02] MEDS: MAG HYDROX/AL HYDROX/SIMETH 30 ML CUP PO PRN (20:39)
[2019-11-03] MEDS: ARIPiprazole 10 MG TAB PO SCH (09:48)
[2019-11-03] MEDS: NICOTINE 21MG/24HR PATCH TRANSDERM SCH (09:50)
[2019-11-03] MEDS: ONDANSETRON 4 MG TAB PO PRN ×2 (10:21→18:42)
[2019-11-03] MEDS: cloNIDine HCL 0.1 MG TAB PO PRN (10:21)
--- NOTE | 2019-11-03 10:34 | P.PN ---
Progress Note - Text Interval history: The patient is found in the hallway he follows me to an interview room. He indicates his mood is pretty good. He reports having physical sensations of withdrawal from opiates and possibly stimulants. He does have Zofran and Catapres available for opiate-related withdrawal. He did sleep and this morning he slept throughout the night he states he plans on attending some groups later today. Appetite stable. He indicates that he has been speaking with his mom via phone. His plan is to attend [facility] from the mental health unit. He indicates that he has made the initial phone call we are awaiting the information. Mental status exam: The patient is a tall male appearing his stated age. He has a disheveled appearance his hair is not combed his honr is unkempt hygiene appears adequate he indicates he showered yesterday. Eye contact is appropriate is fluent nonpressured. He is easily distracted and is stimulus bound in the session. He is reporting no current suicidal or homicidal ideation intent or plan he is reporting no current auditory or visual hallucinations or specific delusions indicate he feels safe. He may be underreporting symptoms. He demonstrates no verbal or physical aggressiveness he demonstrates no involuntary repetitive movements. Insight and judgment limited. Plan: The patient will continue on his current psychotropic medication. We will monitor him for safety he is encouraged to participate in the milieu. His been placed on Abilify which is been titrated to 10 mg daily. The plan is for him to receive Abilify maintena prior to his discharge this next week. We will continue to monitor him for safety. He requires continued psychiatric hospitalization for safety reasons.
[2019-11-03] MEDS: ACETAMINOPHEN TAB 325 MG TAB PO PRN ×2 (13:49→18:40)
[2019-11-03] MEDS: LORazepam 1 MG TAB PO PRN (13:49)
[2019-11-03] MEDS: MELATONIN 5 MG TABLET PO SCH (21:51)
[2019-11-03] MEDS: hydrOXYzine PAMOATE 25 MG CAP PO SCH (21:51)
[2019-11-04] MEDS: ACETAMINOPHEN TAB 325 MG TAB PO PRN (08:22)
[2019-11-04] MEDS: ARIPiprazole 10 MG TAB PO SCH (08:23)
[2019-11-04] MEDS: ONDANSETRON 4 MG TAB PO PRN ×2 (08:23→18:16)
[2019-11-04] MEDS: NICOTINE 21MG/24HR PATCH TRANSDERM SCH (08:23)
[2019-11-04] MEDS: MAG HYDROX/AL HYDROX/SIMETH 30 ML CUP PO PRN (08:24)
[2019-11-04] MEDS: buPROPion XL 150 MG TAB.ER.24H PO SCH (09:57)
--- NOTE | 2019-11-04 09:58 | P.PN ---
Progress Note - Text Interval history the patient is found in the hallway he follows me to an interview room. He indicates his mood is fine. He requests to go back on Wellbutrin XL as that was a medication he has been on in the past. He states that it helps with focus and concentration. He reports that he slept well last night staff recorded he slept 6 hours. He has been eating. He has been showering. He has attended some groups. He is waiting to find out when his placement at [facility] may be. We reviewed his psychotropic medication his questions were answered. Mental status exam: The patient is alert he is dressed in his own clothing hygiene is adequate grooming is impaired. Eye contact is appropriate speech is fluent spontaneous nonpressured. He indicates his mood is fine his affect is congruent to his reported mood and appears euthymic. He reports no suicidal or homicidal ideation intent or plan. He is reporting no auditory or visual hallucinations or any specific delusions. He demonstrates no observed evidence of psychosis. Thought process is linear he demonstrates no tangential thinking loose associations or flight of ideas he does not appear hypomanic or manic. He is cooperative he follows direction in the session. He demonstrates no verbal or physical aggressiveness. Insight and judgment improving. Plan: The patient will continue on the Abilify I will add the Wellbutrin XL 150 mg daily this may be titrated further. We are awaiting his placement data at [facility]. Vital signs reviewed. He is encouraged to continue participating the milieu. We will monitor him for safety.
[2019-11-04 20:10] VITALS: RESP 18
[2019-11-04] MEDS: hydrOXYzine PAMOATE 25 MG CAP PO SCH (20:29)
[2019-11-04] MEDS: MELATONIN 5 MG TABLET PO SCH (20:29)
[2019-11-04] MEDS: LORazepam 1 MG TAB PO PRN (21:46)
[2019-11-04] MEDS: cloNIDine HCL 0.1 MG TAB PO PRN (23:47)
[2019-11-04 23:50] VITALS: TEMP 97.9
[2019-11-05 07:30] VITALS: BP 100/57; PULSE 46
[2019-11-05] MEDS: ARIPiprazole 10 MG TAB PO SCH (08:13)
[2019-11-05] MEDS: NICOTINE 21MG/24HR PATCH TRANSDERM SCH (08:13)
[2019-11-05] MEDS: buPROPion XL 150 MG TAB.ER.24H PO SCH (08:13)
[2019-11-05] MEDS: ONDANSETRON 4 MG TAB PO PRN (08:14)
[2019-11-05] MEDS ORDERED: ARIPiprazole IM SYRINGE 400 MG (NO CHARGE) IM ONE (09:39)
--- NOTE | 2019-11-05 09:59 | P.DS ---
Providers Date of admission: 10/29/19 12:29 Expected date of discharge: 11/05/19 Attending physician: Sae Vicente MD Consults: 10/29/19 12:51 Consult Physician Routine Consulting Provider: Mark Nicole Consult Reason/Comments: H and P Do you want consulting provider notified?: Yes Primary care physician: Stated None - Discharge Diagnosis(es) (1) Schizoaffective disorder Current Visit: Yes Status: Acute Priority: High (2) Methamphetamine abuse Current Visit: Yes Status: Acute Priority: Medium (3) Opioid dependence Current Visit: Yes Status: Acute Priority: Medium (4) Nicotine dependence Current Visit: Yes Status: Acute Priority: Low Hospital Course: Admission HPI: Patient is a 34-year-old male with a history of schizoaffective disorder and polysubstance abuse who is currently homeless. Patient presented to the hospital accompanied by local police for a psych evaluation. Patient was allegedly found in the residential area soliciting and throwing multiple objects as per ER report. Patient was petitioned by police for acting bizarre. Patient received multiple when necessary medications for agitation in the ER and was admitted to the mental health unit. Patient was seen this morning and appeared to be disheveled, lethargic and bizarre in appearance. He was tangential/circumstantial and illogical at times. Patient was guarded/evasive about the events that occurred prior to him coming to the hospital and spoke about his "rights being violated" by the police and how he was not throwing any objects and causing any trouble to anybody. Patient has poor insight and judgment and was intrusive during conversation. She states that "the professor of voice said I was looking suspicious". He claims that he was using methamphetamine however was guarded about the quantity and states that he is also using Suboxone. He states that his mood is "okay" at this time and denies any depression however states that he is feeling sick from withdrawals. He states that he is having cold sweats and nausea and restlessness and was requesting to be put on Suboxone again. Patient denies any suicidal or homicidal ideations intent or plan. At this time patient denies any auditory or visual hallucinations. Patient denies any flight of ideas racing thoughts and increased in goal directed behavior. Patient admits to using methamphetamine approximately 1/4 g per day, states that he is smoking cigarettes and on Suboxone taking approximately what strip twice a day. He denies being on any other opiates or heroin at this time. Hospital course: Upon admission to the unit patient was initially argumentative, irritable, and disorganized. Patient did not sign voluntary and second certification was completed and filed for court. Patient ended up signing referral for treatment. Patient got along well with other patients on the unit and followed unit protocol. Patient was compliant with the medications and denied any side effects throughout hospital course. Patient was started on Abilify and titrated up to a dose of 10 mg daily for mood stabilization/psychosis. Patient was given Abilify Maintenna 400 mg IM injection on 11/05/2019 prior to discharge. Patient was also started on Vistaril 50 mg daily at bedtime for sleep/anxiety, melatonin 5 mg nightly for sleep. Patient was also started on Wellbutrin and titrated up to dose of 300 mg daily for mood. Patient was also given Catapres, dicyclomine, Zofran and Tylenol when necessary to help with opioid withdrawal symptoms. Patient spoke of his stressors and engaged in therapy both group and individual. Patient was also seen by medical team for history and physical exam. Throughout the course of the hospitalization patient gradually improved with regards to mood, psychosis, irritability, sleep and became future oriented with improved insight and judgment. On the day of discharge patient denied any suicidal or homicidal ideations intent or plan denied any auditory or visual hallucinations. Patient endorsed wanting to live for his friends and his future. The patient denied any access to guns or weapons. Patient denied any paranoia and did not endorse any delusions. Patient does have a significant history of substance abuse and was counseled on abstaining from all substances including alcohol and marijuana. Patient called access line for substance abuse rehab and is currently in the process of waiting for intake date this coming week. Patient was also counseled on the medications and need for regular compliance and was encouraged to follow-up with their outpatient appointment for mental health and also for primary care. Mental status exam: General Appearance: Patient appears to be stated age is tall/thin, alert, pleasant, and attempts to be cooperative. Patient is in no acute distress and has fair hygiene and grooming Behavior: Patient is calmly seated without any agitated behavior. Speech: Patient's speech is fluent and nonpressured. Mood/Affect: Patient reports their mood is "better", affect is congruent and euthymic. Suicidality/Homicidality: Patient denies having any suicidal or homicidal ideation intent or plan. Perceptions: Patient denies any auditory or visual hallucinations. Though content/process: There is no evidence of any delusional thought content and thought process is linear and goal-directed. More future oriented. Memory and concentration: AOX3, grossly intact for the purposes of this session. Can spell "WORLD" backwards correctly. Judgment and insight: improved with guarded prognosis Impression: Schizoaffective disorder Methamphetamine abuse Opiate dependence Nicotine dependence Plan: -Continue with discharge today as patient has improved and stabilized psychiatrically and is not currently an imminent threat to himself and/or others. -Continue medications: Patient to continue on Abilify by mouth 10 mg 14 days and then to be discontinued. Patient will receive his Abilify Maintenna IM 400 mg injection today 11/05/2019 and will be due for his next injection on 12/03/2019. Continue with Vistaril 50 mg daily at bedtime for sleep/anxiety, melatonin 5 mg daily at bedtime for sleep. Continue with Wellbutrin 300 mg d aily for mood. Patient declined wanting anymore symptomatic medications for opiate withdrawal and stated that he will follow-up with his outpatient primary care physician for Suboxone. -Patient was counseled on the need for medication compliance and appropriate follow-up at mental health and also primary care for medical issues. Patient verbalized understanding and agreed. -Social work to confirm patient's discharge location to his friend's house. Social work also to arrange for patients follow up appointments with [facility] for psychiatric care along with follow up with primary care provider. -Patient counseled on abstaining from recreational drugs and marijuana and alcohol. Was informed/educated on the adverse effects on their physical and mental health. Patient verbally agreed and understood. Patient was offered substance abuse treatment and at this time is waiting for an intake date this coming week. -Patient was instructed to return to the hospital or seek immediate medical care if their psychiatric or medical symptoms do worsen or reoccur. Allergies Allergy/AdvReac Type Severity Reaction Status Date / Time haloperidol Allergy Unknown Verified 10/29/19 14:41 Laboratory Results WBC 6.7 k/uL (3.8-10.6) 10/30/19 08:43 RBC 4.70 m/uL (4.30-5.90) 10/30/19 08:43 Hgb 14.0 gm/dL (13.0-17.5) 10/30/19 08:43 Hct 42.2 % (39.0-53.0) 10/30/19 08:43 MCV 89.7 fL (80.0-100.0) 10/30/19 08:43 MCH 29.9 pg (25.0-35.0) 10/30/19 08:43 MCHC 33.3 g/dL (31.0-37.0) 10/30/19 08:43 RDW 13.1 % (11.5-15.5) 10/30/19 08:43 Plt Count 337 k/uL (150-450) 10/30/19 08:43 Neutrophils % 37 % 10/30/19 08:43 Lymphocytes % 52 % 10/30/19 08:43 Monocytes % 6 % 10/30/19 08:43 Eosinophils % 3 % 10/30/19 08:43 Basophils % 0 % 10/30/19 08:43 Neutrophils # 2.4 k/uL (1.3-7.7) 10/30/19 08:43 Lymphocytes # 3.5 k/uL (1.0-4.8) 10/30/19 08:43 Monocytes # 0.4 k/uL (0-1.0) 10/30/19 08:43 Eosinophils # 0.2 k/uL (0-0.7) 10/30/19 08:43 Basophils # 0.0 k/uL (0-0.2) 10/30/19 08:43 Sodium 137 mmol/L (137-145) 10/30/19 08:43 Potassium 4.5 mmol/L (3.5-5.1) 10/30/19 08:43 Chloride 102 mmol/L (98-107) 10/30/19 08:43 Carbon Dioxide 28 mmol/L (22-30) 10/30/19 08:43 Anion Gap 7 mmol/L 10/30/19 08:43 BUN 15 mg/dL (9-20) 10/30/19 08:43 Creatinine 0.68 mg/dL (0.66-1.25) 10/30/19 08:43 Est GFR (CKD-EPI)AfAm >90 (>60 ml/min/1.73 sqM) 10/30/19 08:43 Est GFR (CKD-EPI)NonAf >90 (>60 ml/min/1.73 sqM) 10/30/19 08:43 Glucose 75 mg/dL (74-99) 10/30/19 08:43 POC Glucose (mg/dL) 117 mg/dL (75-99) H 10/29/19 07:20 POC Glu [employer] Department Reset NARCISA Danilo Morfin 10/29/19 07:20 Calcium 8.8 mg/dL (8.4-10.2) 10/30/19 08:43 Total Bilirubin 0.4 mg/dL (0.2-1.3) 10/30/19 08:43 AST 48 U/L (17-59) 10/30/19 08:43 ALT 65 U/L (4-49) H 10/30/19 08:43 Alkaline Phosphatase 77 U/L (38-126) 10/30/19 08:43 Total Protein 6.9 g/dL (6.3-8.2) 10/30/19 08:43 Albumin 3.8 g/dL (3.5-5.0) 10/30/19 08:43 TSH 2.780 mIU/L (0.465-4.680) 10/30/19 08:43 Serum Alcohol <10 mg/dL 10/28/19 21:20 Vital Signs Temp 97.9 F 11/05/19 07:29 Pulse 46 L 11/05/19 07:29 Resp 18 11/05/19 07:29 BP 100/57 11/05/19 07:29 Pulse Ox 97 11/05/19 07:29 Intake & Output 11/04/19 11/05/19 11/05/19 18:59 06:59 18:59 Weight 82.7 kg Patient Condition at Discharge: Stable Plan - Discharge Summary New Discharge Prescriptions: New ARIPiprazole [Abilify] 10 mg PO DAILY #14 tab ARIPiprazole IM [Abilify Maintena] 400 mg IM ONCE #1 each Nicotine 21Mg/24Hr Patch [Habitrol] 1 patch TRANSDERM DAILY 14 Days patch Melatonin 5 mg PO HS 30 Days tablet hydrOXYzine PAMOATE [Vistaril] 50 mg PO HS 30 Days cap buPROPion HCL [Wellbutrin SR] 300 mg PO DAILY 28 Days tab Continue Buprenorphine HCl/Naloxone HCl [Suboxone 8 mg-2 mg Sl Film] 1 film SUBLINGUAL BID Discharge Medication List Buprenorphine HCl/Naloxone HCl [Suboxone 8 mg-2 mg Sl Film] 1 film SUBLINGUAL BID 10/29/19 [History] ARIPiprazole IM [Abilify Maintena] 400 mg IM ONCE #1 each 11/05/19 [Rx] ARIPiprazole [Abilify] 10 mg PO DAILY #14 tab 11/05/19 [Rx] Melatonin 5 mg PO HS 30 Days tablet 11/05/19 [Rx] Nicotine 21Mg/24Hr Patch [Habitrol] 1 patch TRANSDERM DAILY 14 Days patch 11/05/19 [Rx] buPROPion HCL [Wellbutrin SR] 300 mg PO DAILY 28 Days tab 11/05/19 [Rx] hydrOXYzine PAMOATE [Vistaril] 50 mg PO HS 30 Days cap 11/05/19 [Rx] Follow up Appointment(s)/Referral(s): None,Stated [Primary Care Provider] - 1-2 days Discharge Disposition: HOME SELF-CARE
[2019-11-06] MEDS ORDERED: buPROPion XL 300 MG TAB.ER.24H PO SCH (09:00)
== END 2019-11-05 12:11 | disposition home or self-care (01) | DRG 885 ==
LOC: EC 20:43 → 3MHU 10-29 12:29
PROVIDERS: ADMIT Psychiatry & Neurology Psychiatry; ATTEND Psychiatry & Neurology Psychiatry
DX: F25.9 Schizoaffective disorder, unspecified (principal); F11.23 Opioid dependence with withdrawal; F15.10 Other stimulant abuse, uncomplicated; F17.210 Nicotine dependence, cigarettes, uncomplicated; F41.9 Anxiety disorder, unspecified; Z59.0 Homelessness; Z79.899 Other long term (current) drug therapy; Z71.51 Drug abuse counseling and surveillance of drug abuser; F90.9 Attention-deficit hyperactivity disorder, unspecified type; Z65.3 Problems related to other legal circumstances; Z88.8 Allergy status to other drugs, medicaments and biological substances
CPT/HCPCS: 36415; 80048; 80053; 80320; 82075; 84443; 85025; 96372; 96374; 99285

== ENCOUNTER 2019-12-19 22:08 | Emergency (ER) | payer OTHER ==
[2019-12-19 22:17] VITALS: BP 129/87; PULSE 75; RESP 20; TEMP 99.3
[2019-12-20] MEDS ORDERED: ACETAMINOPHEN TAB 500 MG TAB ONE (00:41)
[2019-12-20] MEDS ORDERED: MORPHINE SULFATE 4 MG/ML SYRINGE ONE (00:41)
[2019-12-20] MEDS ORDERED: LORazepam 2 MG/ML INJ ONE (00:41)
[2019-12-20] MEDS ORDERED: SODIUM CHLORIDE 0.9% 1,000 ML BAG ONE (00:41)
[2019-12-20 05:16] LABS: Basophils # (A) 0.1 k/uL (0-0.2); Basophils % (A) 1 %; Eosinophils # (A) 0.2 k/uL (0-0.7); Eosinophils % (A) 2 %; HCT 44.2 % (39.0-53.0); HGB 14.4 gm/dL (13.0-17.5); Lymphocytes # (A) 2.9 k/uL (1.0-4.8); Lymphocytes % (A) 25 %; MCH 29.4 pg (25.0-35.0); MCHC 32.5 g/dL (31.0-37.0); MCV 90.5 fL (80.0-100.0); Mean Platelet Volume 7.4; Monocytes # (A) 0.7 k/uL (0-1.0); Monocytes % (A) 6 %; Neutrophils # (A) 7.3 k/uL (1.3-7.7); Neutrophils % (A) 64 %; Platelet Count 336 k/uL (150-450); RBC 4.88 m/uL (4.30-5.90); WBC 11.4 k/uL (3.8-10.6)
[2019-12-20 05:55] LABS: ALT 13 U/L (4-49); AST 22 U/L (17-59); African American GFR (CKD) >90 (>60 ml/min/1.73 sqM); Albumin 3.8 g/dL (3.5-5.0); Alcohol <10 mg/dL; Alkaline Phosphatase 70 U/L (38-126); Anion Gap 5 mmol/L; Blood Urea Nitrogen 17 mg/dL (9-20); Calcium 9.3 mg/dL (8.4-10.2); Carbon Dioxide 29 mmol/L (22-30); Chloride 102 mmol/L (98-107); Glucose 77 mg/dL (74-99); Non-African American GFR(CKD) 87 (>60 ml/min/1.73 sqM); Potassium 4.4 mmol/L (3.5-5.1); Sodium 136 mmol/L (137-145); Total Bilirubin 0.4 mg/dL (0.2-1.3); Total Protein 6.9 g/dL (6.3-8.2)
== END 2019-12-20 02:00 | disposition home or self-care (01) ==
LOC: EC 22:08
DX: R51 Headache (principal); M54.9 Dorsalgia, unspecified; R53.1 Weakness; R11.2 Nausea with vomiting, unspecified; F17.200 Nicotine dependence, unspecified, uncomplicated; Z79.899 Other long term (current) drug therapy
CPT/HCPCS: 99284 ×3; 96374 ×2; 96375 ×2; 96361 ×3; 36415; 80053; 83735; 84100; 85025; 70450; G0480; J2060; J2270; 80320

== ENCOUNTER 2019-12-20 03:09 | Emergency (ER) | payer OTHER ==
--- NOTE | 2019-12-20 06:39 | CT ---
EXAM: CT Head Without Intravenous Contrast CLINICAL HISTORY: headache TECHNIQUE: Axial computed tomography images of the head/brain without intravenous contrast. CTDI is 49.1 mGy and DLP is 1178 mGy-cm. This CT exam was performed using one or more of the following dose reduction techniques: automated exposure control, adjustment of the mA and/or kV according to patient size, and/or use of iterative reconstruction technique. COMPARISON: 10/30/14 FINDINGS: Brain: Unremarkable. No hemorrhage. No significant white matter disease. No edema. Ventricles: Unremarkable. No ventriculomegaly. Bones/joints: Unremarkable. No acute fracture. Soft tissues: Unremarkable. Sinuses: Minimal maxillary sinus mucosal thickening. No visualized air- fluid level.. Mastoid air cells: Unremarkable as visualized. No mastoid effusion. IMPRESSION: No acute intracranial process. Minimal maxillary sinus mucosal thickening.
== END 2019-12-20 05:40 | disposition home or self-care (01) ==
LOC: EC 03:09
DX: R42 Dizziness and giddiness (principal); F17.200 Nicotine dependence, unspecified, uncomplicated
CPT/HCPCS: 70450; 99284

== ENCOUNTER 2019-12-25 17:36 | Emergency (ER) | payer OTHER ==
[2019-12-25 17:40] VITALS: BP 129/83; PULSE 78; RESP 18; TEMP 98.1
[2019-12-25] MEDS ORDERED: KETOROLAC 60 MG/2 ML VIAL IM STA (17:50)
--- NOTE | 2019-12-25 17:51 | ED ---
Male Urogenital HPI - General Chief complaint: Urogenital Stated complaint: blood in urine Time Seen by Provider: 12/25/19 17:41 Source: patient, RN notes reviewed Mode of arrival: ambulatory Limitations: no limitations - History of Present Illness Initial comments: This a 34-year-old male presents emergency Department chief complaint of dysuria. Patient states that it hurts when he urinates into its electrical some small amount of urine. Patient denies any penile discharge or lesions or sores. Patient states he had some flank pain on the right days ago and then on the left. No current symptoms. Patient does have a history kidney stones. No abdominal pain denies any nausea, vomiting, diarrhea constipation no fevers chills no chest pain or shortness of breath. Patient admits to ALLERGY of Haldol. Patient does admit to a history of drug abuse. - Related Data Home Medications Medication Instructions Recorded Confirmed Buprenorphine HCl/Naloxone HCl 1 film SUBLINGUAL BID 10/29/19 10/29/19 [Suboxone 8 mg-2 mg Sl Film] Previous Rx's Medication Instructions Recorded ARIPiprazole IM [Abilify Maintena] 400 mg IM ONCE #1 each 11/05/19 ARIPiprazole [Abilify] 10 mg PO DAILY #14 tab 11/05/19 Melatonin 5 mg PO HS 30 Days tablet 11/05/19 Nicotine 21Mg/24Hr Patch [Habitrol] 1 patch TRANSDERM DAILY 14 Days 11/05/19 patch buPROPion HCL [Wellbutrin SR] 300 mg PO DAILY 28 Days tab 11/05/19 hydrOXYzine PAMOATE [Vistaril] 50 mg PO HS 30 Days cap 11/05/19 Ibuprofen [Motrin] 600 mg PO Q8HR PRN #20 tab 12/25/19 Ondansetron Odt [Zofran Odt] 4 mg PO Q8HR PRN #10 tab 12/25/19 Tamsulosin [Flomax] 0.4 mg PO DAILY #7 cap 12/25/19 Allergies Allergy/AdvReac Type Severity Reaction Status Date / Time haloperidol Allergy Unknown Verified 12/25/19 17:44 Review of Systems ROS Statement: Those systems with pertinent positive or pertinent negative responses have been documented in the HPI. ROS Other: All systems not noted in ROS Statement are negative. Past Medical History Additional Past Medical History / Comment(s): HEPATITIS C History of Any Multi-Drug Resistant Organisms: None Reported Past Surgical History: No Surgical Hx Reported Past Anesthesia/Blood Transfusion Reactions: No Reported Reaction Past Psychological History: ADD/ADHD, Anxiety, Bipolar, Schizoaffective Disorder Smoking Status: Current every day smoker Past Alcohol Use History: None Reported Past Drug Use History: Cocaine, Heroin, Marijuana, Methamphetamine - Past Family History family Family Medical History: No Reported History General Exam Limitations: no limitations General appearance: alert, in no apparent distress Head exam: Present: atraumatic, normocephalic, normal inspection Neck exam: Present: normal inspection. Absent: tenderness, meningismus, lymphadenopathy Respiratory exam: Present: normal lung sounds bilaterally. Absent: respiratory distress, wheezes, rales, rhonchi, stridor Cardiovascular Exam: Present: regular rate, normal rhythm, normal heart sounds. Absent: systolic murmur, diastolic murmur, rubs, gallop, clicks GI/Abdominal exam: Present: soft, normal bowel sounds. Absent: distended, tenderness, guarding, rebound, rigid Back exam: Absent: CVA tenderness (R), CVA tenderness (L) Neurological exam: Present: alert, oriented X3 Skin exam: Present: warm, dry, intact, normal color. Absent: rash Course Vital Signs 12/25/19 17:37 Temperature 98.1 F Pulse Rate 78 Respiratory 18 Rate Blood Pressure 129/83 O2 Sat by Pulse 99 Oximetry Medical Decision Making - Medical Decision Making 34-year-old male presented for possible kidney stone. Patient does have hematuria. Patient was provided Toradol and Zofran,, codeine and Flomax. Patient follow-up with urology. I did have a discussion with the patient regarding his drug abuse. - Lab Data Lab Results 12/25/19 Range/Units 17:50 Urine Color Yellow Urine Appearance Clear (Clear) Urine pH 5.5 (5.0-8.0) Ur Specific [place] 1.023 (1.001-1.035) Urine Protein Trace H (Negative) Urine Glucose (UA) Negative (Negative) Urine Ketones Trace H (Negative) Urine Blood Large H (Negative) Urine Nitrite Negative (Negative) Urine Bilirubin Negative (Negative) Urine Urobilinogen 2.0 (<2.0) mg/dL Ur Leukocyte Esterase Trace H (Negative) Urine RBC >182 H (0-5) /hpf Urine WBC 18 H (0-5) /hpf Urine Bacteria Rare H (None) /hpf Hyaline Casts 33 H (0-2) /lpf Granular Casts 18 (0) /lpf Urine Mucus Few H (None) /hpf Urine Opiates Screen Not Detected (NotDetected) Ur Oxycodone Screen Not Detected (NotDetected) Urine Methadone Screen Detected H (NotDetected) Ur Propoxyphene Screen Not Detected (NotDetected) Ur Barbiturates Screen Not Detected (NotDetected) U Tricyclic Antidepress Not Detected (NotDetected) Ur Phencyclidine Scrn Not Detected (NotDetected) Ur Amphetamines Screen Detected H (NotDetected) U Methamphetamines Scrn Detected H (NotDetected) U Benzodiazepines Scrn Not Detected (NotDetected) Urine Cocaine Screen Detected H (NotDetected) U Marijuana (THC) Screen Detected H (NotDetected) Disposition Clinical Impression: Kidney stone on right side, Polysubstance abuse Disposition: HOME SELF-CARE Condition: Stable Instructions (If sedation given, give patient instructions): Kidney Stones (ED) Additional Instructions: Please return to the Emergency Department if symptoms worsen or any other concerns. Prescriptions: Tamsulosin [Flomax] 0.4 mg PO DAILY #7 cap Ibuprofen [Motrin] 600 mg PO Q8HR PRN #20 tab PRN Reason: Pain Ondansetron Odt [Zofran Odt] 4 mg PO Q8HR PRN #10 tab PRN Reason: Nausea Is patient prescribed a controlled substance at d/c from ED?: No Referrals: None,Stated [Primary Care Provider] - 1-2 days Flakito Cook MD [STAFF PHYSICIAN] - 1-2 days Time of Disposition: 19:48
--- NOTE | 2019-12-25 18:19 | XR ---
EXAMINATION TYPE: XR KUB DATE OF EXAM: 12/25/2019 COMPARISON: 09/06/2011 HISTORY: Pain TECHNIQUE: Single supine KUB image of the abdomen is obtained FINDINGS: Small bowel demonstrates no evidence for dilatation or air fluid levels. Gas and fecal material is seen in non-distended colon. No convincing evidence for pneumoperitoneum. Mild fecal stasis. No unusual calcifications. The lung bases are clear. The osseous structures are intact. IMPRESSION: 1. Overall nonobstructive bowel gas pattern.
[2019-12-25 19:33] LABS: Appearance,Urine Clear (Clear); Bacteria,Urine Rare /hpf; Bilirubin,Urine Negative (Negative); Blood,Urine Large (Negative); Color,Urine Yellow; Glucose,Urine (UA) Negative (Negative); Granular Casts,Urine 18 /lpf (0); Hyaline Casts,Urine 33 /lpf (0-2); Ketones,Urine Trace (Negative); Leukocyte Esterase,Urine Trace (Negative); Mucus,Urine Few /hpf; Nitrite,Urine Negative (Negative); PH, Urine 5.5 (5.0-8.0); Protein,Urine Trace (Negative); RBC,Urine >182 /hpf (0-5); Specific Gravity,Urine 1.023 (1.001-1.035); WBC,Urine 18 /hpf (0-5)
[2019-12-25 19:35] LABS: Cocaine Screen,Urine Detected (NotDetected); Phencyclidine Screen,Urine Not Detected (NotDetected); Urn Cannabinoid Scrn Detected (NotDetected)
[2019-12-25 19:36] LABS: Amphetamine Screen,Urine Detected (NotDetected); Barbiturate Screen,Urine Not Detected (NotDetected); Benzodiazepines Screen,Urine Not Detected (NotDetected); Methadone Screen, Urine Detected (NotDetected); Opiate Screen,Urine Not Detected (NotDetected); Oxycodone Screen, Urine Not Detected (NotDetected); Tricyclic Antidepressant,Urine Not Detected (NotDetected)
[2019-12-25] MEDS ORDERED: ACET/COD 300 MG/30 MG STARTER PACK 6 TAB BTL PO STA (19:48)
== END 2019-12-25 20:16 | disposition home or self-care (01) ==
LOC: EC 17:36
DX: N20.0 Calculus of kidney (principal); F19.11 Other psychoactive substance abuse, in remission; B19.20 Unspecified viral hepatitis C without hepatic coma; F17.200 Nicotine dependence, unspecified, uncomplicated; Z79.899 Other long term (current) drug therapy; Z88.8 Allergy status to other drugs, medicaments and biological substances
CPT/HCPCS: 81001; 80306; 87086; 74018; 96372; 99283; J1885

== ENCOUNTER 2019-12-27 18:59 | Emergency (ER) | payer OTHER ==
[2019-12-27] MEDS ORDERED: ONDANSETRON 4 MG/2 ML VIAL IVP STA (19:32)
[2019-12-27] MEDS ORDERED: SODIUM CHLORIDE 0.9% 1,000 ML IV STA (19:32)
[2019-12-27] MEDS ORDERED: KETOROLAC 30 MG/ML 1 ML VIAL IVP STA (19:33)
--- NOTE | 2019-12-27 19:36 | ED ---
Abdominal Pain HPI - General Chief Complaint: Abdominal Pain Stated Complaint: Kidney stones, Revisit Time Seen by Provider: 12/27/19 19:22 Source: patient Mode of arrival: ambulatory Limitations: no limitations - History of Present Illness Initial Comments: Patient is a 34-year-old male presenting to emergency for with a chief complaint of kidney stones. Patient states she was recently diagnosed with a kidney stone and discharged with a Tylenol 3 starter pack. Patient states he continues to have pain in the exact same spot. This report mild gross hematuria. States he is coming to the ED because he cannot get in contact with the urology clinic. States he continues to have pain and [id number] medication is not helping. Denies any fevers and sweats or chills. Denies nausea but no vomiting or diarrhea. - Related Data Home Medications Medication Instructions Recorded Confirmed Buprenorphine HCl/Naloxone HCl 1 film SUBLINGUAL BID 10/29/19 10/29/19 [Suboxone 8 mg-2 mg Sl Film] Previous Rx's Medication Instructions Recorded ARIPiprazole IM [Abilify Maintena] 400 mg IM ONCE #1 each 11/05/19 ARIPiprazole [Abilify] 10 mg PO DAILY #14 tab 11/05/19 Melatonin 5 mg PO HS 30 Days tablet 11/05/19 Nicotine 21Mg/24Hr Patch [Habitrol] 1 patch TRANSDERM DAILY 14 Days 11/05/19 patch buPROPion HCL [Wellbutrin SR] 300 mg PO DAILY 28 Days tab 11/05/19 hydrOXYzine PAMOATE [Vistaril] 50 mg PO HS 30 Days cap 11/05/19 Ibuprofen [Motrin] 600 mg PO Q8HR PRN #20 tab 12/25/19 Ondansetron Odt [Zofran Odt] 4 mg PO Q8HR PRN #10 tab 12/25/19 Tamsulosin [Flomax] 0.4 mg PO DAILY #7 cap 12/25/19 Allergies Allergy/AdvReac Type Severity Reaction Status Date / Time haloperidol Allergy Unknown Verified 12/27/19 19:05 Review of Systems ROS Statement: Those systems with pertinent positive or pertinent negative responses have been documented in the HPI. ROS Other: All systems not noted in ROS Statement are negative. Past Medical History Additional Past Medical History / Comment(s): HEPATITIS C, kidney stone History of Any Multi-Drug Resistant Organisms: None Reported Past Surgical History: No Surgical Hx Reported Past Anesthesia/Blood Transfusion Reactions: No Reported Reaction Past Psychological History: ADD/ADHD, Anxiety, Bipolar, Schizoaffective Disorder Smoking Status: Current every day smoker Past Alcohol Use History: None Reported Past Drug Use History: Cocaine, Heroin, Marijuana, Methamphetamine - Past Family History family Family Medical History: No Reported History General Exam Limitations: no limitations General appearance: alert, in no apparent distress Head exam: Present: atraumatic, normocephalic, normal inspection Eye exam: Present: normal appearance, PERRL, EOMI Pupils: Present: normal accommodation ENT exam: Present: normal exam Neck exam: Present: normal inspection, full ROM Respiratory exam: Present: normal lung sounds bilaterally Cardiovascular Exam: Present: regular rate, normal rhythm, normal heart sounds GI/Abdominal exam: Present: soft Extremities exam: Present: normal inspection, full ROM Back exam: Present: normal inspection, full ROM, tenderness (CVA tenderness) Neurological exam: Present: alert, oriented X3 Psychiatric exam: Present: normal affect, normal mood Skin exam: Present: warm, dry, intact, normal color Course Vital Signs 12/27/19 19:03 Temperature 97.3 F L Pulse Rate 79 Respiratory 18 Rate Blood Pressure 114/77 O2 Sat by Pulse 99 Oximetry Medical Decision Making - Medical Decision Making Patient is a 34-year-old male presenting to the emergency Department with a chief complaint of a kidney stone. Patient was recently diagnosed with a kidney stone discharged with antiemetics, analgesia and Flomax. Patient states he continues to have hematuria and the pain is so prevalent. UA significant for hematuria. IV access was difficult to establish. Patient was given IM Toradol. He states the nausea was prevalent prior to ED arrival but has since resolved without medication. Patient states he otherwise feels better and is only here for pain control. Patient given a prescription of a Tylenol 3 starter pack. Patient advised to call a urologist. Contact information was given. Return parameters discussed. Case discussed with physician. - Lab Data Lab Results 12/27/19 Range/Units 19:38 Urine Color Yellow Urine Appearance Clear (Clear) Urine pH 7.5 (5.0-8.0) Ur Specific [place] 1.023 (1.001-1.035) Urine Protein Trace H (Negative) Urine Glucose (UA) Negative (Negative) Urine Ketones Negative (Negative) Urine Blood Large H (Negative) Urine Nitrite Negative (Negative) Urine Bilirubin Negative (Negative) Urine Urobilinogen 2.0 (<2.0) mg/dL Ur Leukocyte Esterase Trace H (Negative) Urine RBC >182 H (0-5) /hpf Urine WBC 7 H (0-5) /hpf Ur Squamous Epith Cells <1 (0-4) /hpf Amorphous Sediment Rare H (None) /hpf Hyaline Casts 1 (0-2) /lpf Urine Mucus Rare H (None) /hpf Disposition Clinical Impression: Hematuria, Kidney stone Disposition: HOME SELF-CARE Condition: Serious Instructions (If sedation given, give patient instructions): Kidney Stones (ED) Additional Instructions: Take prescribed medication as directed. Follow-up with primary care. Return to emergency department if symptoms worsen. Is patient prescribed a controlled substance at d/c from ED?: No Referrals: None,Stated [Primary Care Provider] - 1-2 days Time of Disposition: 20:38
[2019-12-27 19:59] LABS: Amorphous Sediment,Urine Rare /hpf; Appearance,Urine Clear (Clear); Bilirubin,Urine Negative (Negative); Blood,Urine Large (Negative); Color,Urine Yellow; Glucose,Urine (UA) Negative (Negative); Hyaline Casts,Urine 1 /lpf (0-2); Ketones,Urine Negative (Negative); Leukocyte Esterase,Urine Trace (Negative); Mucus,Urine Rare /hpf; Nitrite,Urine Negative (Negative); PH, Urine 7.5 (5.0-8.0); Protein,Urine Trace (Negative); RBC,Urine >182 /hpf (0-5); Specific Gravity,Urine 1.023 (1.001-1.035); Squamous Epithelial Cell,Urine <1 /hpf (0-4); WBC,Urine 7 /hpf (0-5)
[2019-12-27] MEDS: FAMOTIDINE 20 MG TAB PO STA ×2 (20:17→20:24)
[2019-12-27] MEDS ORDERED: KETOROLAC 30 MG/ML 1 ML VIAL IM STA (20:17)
[2019-12-27] MEDS ORDERED: ACET/COD 300 MG/30 MG STARTER PACK 6 TAB BTL PO STA (20:19)
[2019-12-27 20:42] VITALS: BP 117/81; PULSE 59; RESP 17; TEMP 98.6
== END 2019-12-27 20:43 | disposition home or self-care (01) ==
LOC: EC 18:59
DX: N20.0 Calculus of kidney (principal); B19.20 Unspecified viral hepatitis C without hepatic coma; F17.200 Nicotine dependence, unspecified, uncomplicated; Z88.8 Allergy status to other drugs, medicaments and biological substances
CPT/HCPCS: 81001; 96372; 99284; J1885

== ENCOUNTER 2019-12-30 15:27 | Emergency (ER) | payer OTHER ==
[2019-12-30 15:36] VITALS: BP 154/103; PULSE 86; TEMP 97.6
[2019-12-30 15:42] VITALS: RESP 18
--- NOTE | 2019-12-30 15:52 | ED ---
Overdose HPI - General Chief Complaint: Overdose Stated Complaint: Overdose Time Seen by Provider: 12/30/19 15:27 Source: patient, EMS, RN notes reviewed, old records reviewed Mode of arrival: EMS Limitations: no limitations - History of Present Illness Initial Comments: This is a 34-year-old male with a known history of Mallory substance abuse who was found in a person's home that does not know him unresponsive. EMS was called he was given 2 mg of Narcan after a period of time he did arouse and more awake and alert. He apparently initially demonstrate some agonal breathing. Upon arrival here he was anxious and complains some chest congestion but no pain anywhere he apparently inhaled the substance that he will not tell me at this time whether was he took. He was recently here for complaints of kidney stone pain he also has been fine recently have multiple illicit substances a drug screen. Complaint: accidental overdose - Related Data Home Medications Medication Instructions Recorded Confirmed Buprenorphine HCl/Naloxone HCl 1 film SUBLINGUAL BID 10/29/19 10/29/19 [Suboxone 8 mg-2 mg Sl Film] Previous Rx's Medication Instructions Recorded ARIPiprazole IM [Abilify Maintena] 400 mg IM ONCE #1 each 11/05/19 ARIPiprazole [Abilify] 10 mg PO DAILY #14 tab 11/05/19 Melatonin 5 mg PO HS 30 Days tablet 11/05/19 Nicotine 21Mg/24Hr Patch [Habitrol] 1 patch TRANSDERM DAILY 14 Days 11/05/19 patch buPROPion HCL [Wellbutrin SR] 300 mg PO DAILY 28 Days tab 11/05/19 hydrOXYzine PAMOATE [Vistaril] 50 mg PO HS 30 Days cap 11/05/19 Ibuprofen [Motrin] 600 mg PO Q8HR PRN #20 tab 12/25/19 Ondansetron Odt [Zofran Odt] 4 mg PO Q8HR PRN #10 tab 12/25/19 Tamsulosin [Flomax] 0.4 mg PO DAILY #7 cap 12/25/19 Allergies Allergy/AdvReac Type Severity Reaction Status Date / Time haloperidol Allergy Unknown Verified 12/27/19 19:05 Review of Systems ROS Statement: Those systems with pertinent positive or pertinent negative responses have been documented in the HPI. ROS Other: All systems not noted in ROS Statement are negative. Past Medical History Additional Past Medical History / Comment(s): HEPATITIS C, kidney stone History of Any Multi-Drug Resistant Organisms: None Reported Past Surgical History: No Surgical Hx Reported Past Anesthesia/Blood Transfusion Reactions: No Reported Reaction Past Psychological History: ADD/ADHD, Anxiety, Bipolar, Schizoaffective Disorder Smoking Status: Current every day smoker Past Alcohol Use History: None Reported Past Drug Use History: Cocaine, Heroin, Marijuana, Methamphetamine - Past Family History family Family Medical History: No Reported History General Exam - General Exam Comments Initial Comments: This is a well-developed asthenic appearing male who is awake alert oriented 3. Anxious. Limitations: no limitations General appearance: alert, anxious Head exam: Present: atraumatic, normocephalic, normal inspection Eye exam: Present: normal appearance, PERRL, EOMI. Absent: scleral icterus, conjunctival injection, periorbital swelling ENT exam: Present: normal exam, mucous membranes moist Neck exam: Present: normal inspection. Absent: tenderness, meningismus, lymphadenopathy Respiratory exam: Present: normal lung sounds bilaterally. Absent: respiratory distress, wheezes, rales, rhonchi, stridor Cardiovascular Exam: Present: regular rate, normal rhythm, normal heart sounds. Absent: systolic murmur, diastolic murmur, rubs, gallop, clicks GI/Abdominal exam: Present: soft, normal bowel sounds. Absent: distended, tenderness, guarding, rebound, rigid Extremities exam: Present: normal inspection, full ROM, normal capillary refill. Absent: tenderness, pedal edema, joint swelling, calf tenderness Back exam: Present: normal inspection Neurological exam: Present: alert, oriented X3, CN II-XII intact Psychiatric exam: Present: normal affect, anxious Skin exam: Present: warm, dry, intact, normal color. Absent: rash Course Vital Signs 12/30/19 12/30/19 15:29 15:39 Temperature 97.6 F Pulse Rate 86 Respiratory 17 18 Rate Blood Pressure 154/103 O2 Sat by Pulse 94 L Oximetry Medical Decision Making - Medical Decision Making Patient is awake alert oriented 3 distress no further problems at this point he is had no fever chills sweats no cough the patient be discharged - Radiology Data Radiology results: report reviewed (Evidence of slightly left basilar density likely atelectasis), image reviewed Disposition Clinical Impression: Accidental drug overdose, Polydrug abuse Disposition: HOME SELF-CARE Condition: Good Instructions (If sedation given, give patient instructions): Adult Overdose (ED) Is patient prescribed a controlled substance at d/c from ED?: No Referrals: None,Stated [Primary Care Provider] - 1-2 days
--- NOTE | 2019-12-30 16:17 | XR ---
EXAMINATION TYPE: XR chest 2V DATE OF EXAM: 12/30/2019 COMPARISON: 10/30/2014 HISTORY: Congestion TECHNIQUE: FINDINGS: Heart and mediastinum are normal. There is some linear density in the left lower lobe consi stent with mild pneumonia or atelectasis. The right lung is clear. There are no hilar masses. Bony th orax is intact. There is no pleural effusion. IMPRESSION: Mild linear density left lower lobe is probably new compared to old exam. Normal heart.
== END 2019-12-30 16:54 | disposition home or self-care (01) ==
LOC: EC 15:27
DX: T50.901A Poisoning by unspecified drugs, medicaments and biological substances, accidental (unintentional), initial encounter (principal); F19.10 Other psychoactive substance abuse, uncomplicated; R09.89 Other specified symptoms and signs involving the circulatory and respiratory systems; F17.200 Nicotine dependence, unspecified, uncomplicated; Z79.891 Long term (current) use of opiate analgesic; Z88.8 Allergy status to other drugs, medicaments and biological substances
CPT/HCPCS: 71046; 99284

== ENCOUNTER 2020-04-05 17:38 | Inpatient (IN) | payer MEDICAID, OTHER ==
--- NOTE | 2020-04-05 18:18 | ED ---
General Adult HPI - General Chief complaint: Psychiatric Symptoms Stated complaint: mental health Time Seen by Provider: 04/05/20 17:48 Source: patient, RN notes reviewed Mode of arrival: ambulatory Limitations: no limitations - History of Present Illness Initial comments: Patient is a 35-year-old male presenting to the emergency department for mental health evaluation. Patient states he has been off his medications for years. Patient states sometimes he hears voices. Patient states sometimes he sees things. No suicidal ideation. Patient states sometimes she likes to imagine that he forces people to kill other people. Patient states he has been eating and drinking well. Patient states he's been sleeping and taking care of himself well. No physical complaints. Patient does admit to taking several street drugs including meth and heroin. - Related Data Home Medications Medication Instructions Recorded Confirmed No Known Home Medications 04/05/20 04/05/20 Allergies Allergy/AdvReac Type Severity Reaction Status Date / Time haloperidol Allergy Unknown Verified 04/05/20 19:08 Review of Systems ROS Statement: Those systems with pertinent positive or pertinent negative responses have been documented in the HPI. ROS Other: All systems not noted in ROS Statement are negative. Constitutional: Denies: fever Eyes: Denies: eye pain ENT: Denies: ear pain Respiratory: Denies: cough Cardiovascular: Denies: chest pain Endocrine: Denies: fatigue Gastrointestinal: Denies: abdominal pain Genitourinary: Denies: dysuria Musculoskeletal: Denies: back pain Skin: Denies: rash Neurological: Denies: weakness Psychiatric: Reports: auditory hallucinations, visual hallucinations Past Medical History Additional Past Medical History / Comment(s): HEPATITIS C, kidney stone History of Any Multi-Drug Resistant Organisms: None Reported Past Surgical History: No Surgical Hx Reported Past Anesthesia/Blood Transfusion Reactions: No Reported Reaction Past Psychological History: ADD/ADHD, Anxiety, Bipolar, Schizoaffective Disorder Smoking Status: Current every day smoker Past Alcohol Use History: Rare Past Drug Use History: Cocaine, Heroin, Marijuana, Methamphetamine, Prescription Drug Abuse - Past Family History family Family Medical History: No Reported History General Exam Limitations: no limitations General appearance: alert, in no apparent distress, other (Poor hygiene) Head exam: Present: normocephalic Eye exam: Present: normal appearance Neck exam: Present: normal inspection Respiratory exam: Present: normal lung sounds bilaterally Cardiovascular Exam: Present: regular rate, normal rhythm GI/Abdominal exam: Present: soft. Absent: tenderness Extremities exam: Present: other (Track cat) Neurological exam: Present: alert Psychiatric exam: Present: other (Patient is mildly restless) Skin exam: Present: normal color Course Vital Signs 04/05/20 17:42 Temperature 98.1 F Pulse Rate 82 Respiratory 18 Rate Blood Pressure 136/77 O2 Sat by Pulse 98 Oximetry Medical Decision Making - Medical Decision Making Patient seen by mental health services with plan for psychiatric admission. - Lab Data Lab Results 04/05/20 Range/Units 18:17 Urine Opiates Screen Not Detected (NotDetected) Ur Oxycodone Screen Not Detected (NotDetected) Urine Methadone Screen Detected H (NotDetected) Ur Propoxyphene Screen Not Detected (NotDetected) Ur Barbiturates Screen Not Detected (NotDetected) U Tricyclic Antidepress Not Detected (NotDetected) Ur Phencyclidine Scrn Not Detected (NotDetected) Ur Amphetamines Screen Detected H (NotDetected) U Methamphetamines Scrn Detected H (NotDetected) U Benzodiazepines Scrn Not Detected (NotDetected) Urine Cocaine Screen Detected H (NotDetected) U Marijuana (THC) Screen Not Detected (NotDetected) Disposition Clinical Impression: Acute psychosis Disposition: TRANSFER TO PSYCH HOSP/UNIT Is patient prescribed a controlled substance at d/c from ED?: No Referrals: None,Stated [Primary Care Provider] - 1-2 days Decision Time: 20:04
[2020-04-05 18:39] LABS: Cocaine Screen,Urine Detected (NotDetected); Opiate Screen,Urine Not Detected (NotDetected); Phencyclidine Screen,Urine Not Detected (NotDetected); Urn Cannabinoid Scrn Not Detected (NotDetected)
[2020-04-05 18:40] LABS: Amphetamine Screen,Urine Detected (NotDetected); Barbiturate Screen,Urine Not Detected (NotDetected); Benzodiazepines Screen,Urine Not Detected (NotDetected); Methadone Screen, Urine Detected (NotDetected); Oxycodone Screen, Urine Not Detected (NotDetected); Tricyclic Antidepressant,Urine Not Detected (NotDetected)
[2020-04-05] MEDS ORDERED: ZIPRASIDONE 20 MG VIAL IM STA (19:56)
[2020-04-05] MEDS ORDERED: LORazepam 2 MG/ML INJ IM STA (19:57)
[2020-04-05] MEDS ORDERED: ZIPRASIDONE 20 MG VIAL IM PRN (22:30)
--- NOTE | 2020-04-06 00:40 | P.PN ---
Progress Note - Text Progress Note Date: 04/05/20 patient was medicated in the ED, and currently inappropriate for evaluation , please contact [facility] when patient is ready to be evaluated.
[2020-04-06] MEDS ORDERED: LORazepam 2 MG/ML INJ IM STA (04:12)
[2020-04-06] MEDS: MAG HYDROX/AL HYDROX/SIMETH 30 ML CUP PO PRN ×2 (04:36→17:32)
[2020-04-06] MEDS: ACETAMINOPHEN TAB 325 MG TAB PO PRN ×3 (04:36→22:19)
[2020-04-06] MEDS: traZODone HCL 100 MG TAB PO SCH ×2 (04:38→21:51)
[2020-04-06] MEDS: NICOTINE 14MG/24HR PATCH TRANSDERM SCH (10:08)
--- NOTE | 2020-04-06 10:50 | P.HP ---
Psychiatric H&P - . H&P Date: 04/06/20 History & Physical: Allergies Allergy/AdvReac Type Severity Reaction Status Date / Time haloperidol Allergy Unknown Verified 04/05/20 19:08 Vital Signs Temp 97.9 F 04/06/20 03:37 Pulse 78 04/06/20 03:37 Resp 16 04/06/20 03:37 BP 118/68 04/06/20 03:37 Pulse Ox 98 04/06/20 03:37 Intake & Output 04/05/20 04/06/20 04/06/20 18:59 06:59 18:59 Weight 68.946 kg Laboratory Last Values Urine Opiates Screen Not Detected (NotDetected) 04/05/20 18:17 Ur Oxycodone Screen Not Detected (NotDetected) 04/05/20 18:17 Urine Methadone Screen Detected (NotDetected) H 04/05/20 18:17 Ur Propoxyphene Screen Not Detected (NotDetected) 04/05/20 18:17 Ur Barbiturates Screen Not Detected (NotDetected) 04/05/20 18:17 U Tricyclic Antidepress Not Detected (NotDetected) 04/05/20 18:17 Ur Phencyclidine Scrn Not Detected (NotDetected) 04/05/20 18:17 Ur Amphetamines Screen Detected (NotDetected) H 04/05/20 18:17 U Methamphetamines Scrn Detected (NotDetected) H 04/05/20 18:17 U Benzodiazepines Scrn Not Detected (NotDetected) 04/05/20 18:17 Urine Cocaine Screen Detected (NotDetected) H 04/05/20 18:17 U Marijuana (THC) Screen Not Detected (NotDetected) 04/05/20 18:17 04/06/20 10:34 IDENTIFYING DATA: Patient is a 34-year-old male with a history of schizoaffective disorder and polysubstance abuse who is currently homeless HPI: Patient is a 35-year-old male presenting to the emergency department for mental health evaluation. Patient states he has been off his medications for years. Patient states he hears voices. For example he hears the voice of his girlfriend Cal who is sometimes supportive and sometimes mean.. Patient states sometimes he sees things such as people on the TV talking to him peoples faces changing to where they don't seem to be who they say they are. He sometimes worries that his food is been poisoned feels that people talk about him and follow him. No suicidal ideation. However he says that his life is Focht up and that he needs to be locked up for 6 months to stay clear of drugs and find the medicines that worked best. Patient states sometimes he likes to imagine that he forces people to kill other people. Patient states he has been eating and drinking well. Patient states he's been sleeping and taking care of himself well. No physical complaints other than always being skinny no matter how much he eats. Patient does admit to taking several street drugs including meth and heroin He claims that he was using methamphetamine. He claims to use any kind of street drugs he can get his hands on. however was unclear about the quantity and states that he has also used Suboxone. Upon admission to the unit he became agitated and aggressive demanding food and required a when necessary to help him calm down. PAST PSYCHIATRIC HISTORY: Patient states that he has a history of schizoaffective disorder with multiple hospitalizations. He also claims to have a bad case of ADHD although it looks like what he is describing is more akathisia or perhaps some tardive dyskinesia. Patient was last admitted to the mental health unit on 12/2018. He was previously on Abilify Maintenna for several months however stopped following up at [facility]. Patient denies any previous history of suicide attempts. He is unable to tell me whether the Abilify worked, "that was a long time ago"(he was on the Abilify just 5 months ago) PMH: Hepatitis C, kidney stone ALLERGIES: as per EMR CHEMICAL DEPENDENCY HISTORY: In addition to using any "shit" he can get his hands on he also smokes daily FAMILY PSYCHIATRIC/SUBSTANCE USE HISTORY: denies SOCIAL HISTORY: Patient was born and raised in [place] the patient is a second of 3 children born to his parents with older sister and a brother he says that his parents are alive and nobody else struggles with psychiatric problems. He claims that he "moved around all over". He claims that he is single and was previously in detention and got out on October 10 2019 and was charged with breaking and entering. He currently collects Social Security. He finished high school and about a year of college when he dropped out no history no work he says he shares a room with someone else MENTAL STATUS EXAM: General Appearance: Patient appears to be older than stated age is lethargic and could hardly keep his eyes open because he needed the prn in the middle of the night. Patient appears to have disheveled hygiene and grooming. Behavior: Patient is seated without any agitated behavior. Speech: Patient's speech is fluent and nonpressured. Mood/Affect: Patient reports their mood is "okay", affect is incongruent and constricted. However he admits to feeling hopeless about the future "I just can't quit the drugs " Suicidality/Homicidality: Patient denies having any homicidal ideation intent or plan. Denies any suicidal ideations intent or plan but feels hopeless and helpless and powerless and the voices sometimes tell him that he is worthless and should kill himself Perceptions: As noted above Though content/process: His answers fit the questions. Memory and concentration: He can remember 3 of 3 objects after 5 minutes and all of the [place] he could name the presidents back to [place]. He Can spell "WORLD" backwards he could abstract the cats and snakes are living creatures and assholes in trying to subtract 7 from 100 he got 97 and that he thought for a while and amended at 93 Judgment and insight: poor/impulsive STRENGTHS/WEAKNESSES: strength is that patient is resilient. Weakness is that patient has poor judgment and is impulsive INTELLECT: average IMPRESSIONS: Schizoaffective disorder Polysubstance use disorder Nicotine dependence PLAN: -Patient is admitted under involuntary status to MHU for stabilization of psychiatric symptoms and safety. A second certification was completed and along with petition will be filed for court. I'm going to start him back on the Abilify seemed to tolerate it and prior work he just came off of it and I think he is right he needs to get into a locked residential for treating his substance use and they can keep him on the Abilify hopefully at that point he'll choose to take it himself
[2020-04-06] MEDS: ARIPiprazole 10 MG TAB PO SCH (11:42)
[2020-04-06] MEDS: LORazepam 1 MG TAB PO PRN (17:32)
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
[2020-04-07 08:09] LABS: Basophils # (A) 0.1 k/uL (0-0.2); Basophils % (A) 2 %; Eosinophils # (A) 0.2 k/uL (0-0.7); Eosinophils % (A) 5 %; HCT 38.6 % (39.0-53.0); HGB 12.3 gm/dL (13.0-17.5); Lymphocytes # (A) 2.5 k/uL (1.0-4.8); Lymphocytes % (A) 54 %; MCH 28.5 pg (25.0-35.0); MCHC 31.9 g/dL (31.0-37.0); MCV 89.3 fL (80.0-100.0); Mean Platelet Volume 7.2; Monocytes # (A) 0.3 k/uL (0-1.0); Monocytes % (A) 6 %; Neutrophils # (A) 1.4 k/uL (1.3-7.7); Neutrophils % (A) 30 %; Platelet Count 332 k/uL (150-450); RBC 4.32 m/uL (4.30-5.90); RDW 14.6 % (11.5-15.5); WBC 4.7 k/uL (3.8-10.6)
[2020-04-07 08:25] LABS: ALT 239 U/L (4-49); AST 46 U/L (17-59); African American GFR (CKD) >90 (>60 ml/min/1.73 sqM); Albumin 2.7 g/dL (3.5-5.0); Alkaline Phosphatase 92 U/L (38-126); Anion Gap 5 mmol/L; Blood Urea Nitrogen 8 mg/dL (9-20); Calcium 8.1 mg/dL (8.4-10.2); Carbon Dioxide 29 mmol/L (22-30); Chloride 102 mmol/L (98-107); Cholesterol 122 mg/dL (<200); Creatine Kinase 62 U/L (55-170); Glucose 77 mg/dL (74-99); HDL Cholesterol 20 mg/dL (40-60); LDL Cholesterol,Calculated 88 mg/dL (0-99); Non-African American GFR(CKD) >90 (>60 ml/min/1.73 sqM); Potassium 4.6 mmol/L (3.5-5.1); Sodium 136 mmol/L (137-145); Total Bilirubin 0.4 mg/dL (0.2-1.3); Total Protein 5.9 g/dL (6.3-8.2); Triglycerides 71 mg/dL (<150)
[2020-04-07] MEDS: NICOTINE 14MG/24HR PATCH TRANSDERM SCH (08:30)
[2020-04-07] MEDS: ARIPiprazole 10 MG TAB PO SCH (08:30)
[2020-04-07] MEDS: IBUPROFEN 400 MG TAB PO PRN ×2 (08:31→17:07)
[2020-04-07] MEDS: MAGNESIUM HYDROXIDE 2,400 MG/10 ML CUP PO PRN (10:46)
[2020-04-07] MEDS: ACETAMINOPHEN TAB 325 MG TAB PO PRN ×2 (10:46→17:09)
[2020-04-07] MEDS: LORazepam 1 MG TAB PO PRN ×2 (10:46→17:07)
--- NOTE | 2020-04-07 12:20 | P.PN ---
Progress Note - Text Progress Note Date: 04/07/20 Interval History: Patient was seen wandering the hallways and was directable and agreeable to silvino almeida with keno writer in the office. patient appeared to have fair hygiene and grooming and gave very vague information about his reason for coming into the hospital. He states that he was using "too much drugs" and also states that he was hearing voices and other sounds. He claims that the voices have decreased however still present. He states that he was told to come in the hospital by his girlfriend who he lives with. He states that he has been using several different drugs and admitted to opiates and stimulant use. He states that his mood is depressed at this time and admits to some anxiety. He claims that he was able to sleep better last night however wanted to be switched back on to Seroquel. He states that his appetite has mildly been improving since being on the unit. At this time patient denies any suicidal or homical ideations, intent or plan. Patient denies any visual hallucinations however does state that he hears auditory hallucinations at times. He denies any paranoia or delusions. Patient denies any side effects from the medications and has been compliant with meds. Mental Status Exam: General Appearance: Patient appears to be stated age is alert, directable, supe rficially cooperative. fair hygiene and grooming. Behavior: Patient is calmly seated without any agitated behavior. Speech: Patient's speech is fluent and nonpressured. concrete. Mood/Affect: Mood is improving mildly, affect is congruent and constricted. Suicidality/Homicidality: Patient denies having any suicidal or homicidal ideation intent or plan. Perceptions: Patient denies any visual hallucinations admits to auditory hallucinations Though content/process: There is no evidence of any delusional thought content and thought process is linear and goal-directed. focused on his medications. Memory and concentration: AOX3, grossly intact for the purposes of this session Judgment and insight: superficial. Assessment schizoaffective disorder Opiate abuse Methamphetamine abuse Nicotine dependence Plan: -Patient continues to meet criteria for inpatient psychiatric admission for symptom stabilization and safety. Patient was previously on a deferral and now a demand for hearing will be filed as patient admitted tonot following up with his appointments or taking his medications. -Medications: continue with Abilify 10 mg daily for psychosis, admitted Seroquel 100 mg daily at bedtime for psychosis/insomnia. Added Wellbutrin 150 mg daily for mood. -When necessary Ativan and Geodon for agitation/aggression. -chest x-ray for suspected trauma and possible broken rib. -NRT - nicotine patch -SW on board for discharge planning. Encouraged the patient to participate in milieu. Will await demand hearing date.
[2020-04-07] MEDS: buPROPion XL 150 MG TAB.ER.24H PO SCH (12:57)
[2020-04-07] MEDS: MAG HYDROX/AL HYDROX/SIMETH 30 ML CUP PO PRN (17:10)
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
[2020-04-07] MEDS: QUEtiapine 100 MG TAB PO SCH (20:34)
[2020-04-08] MEDS: ARIPiprazole 10 MG TAB PO SCH (09:13)
[2020-04-08] MEDS: NICOTINE 14MG/24HR PATCH TRANSDERM SCH (09:13)
--- NOTE | 2020-04-08 09:13 | P.PN ---
Progress Note - Text Progress Note Date: 04/08/20 Interval History: Patient was seen wandering the hallways prior to getting his medications this morning and was directable and agreeable to speak with telegraphic typewriter operator chief in the office. patient appeared to have fair hygiene and grooming. Patient continues to be somewhat guarded however continues to complain of ongoing rib pain since coming into the hospital. Patient's x-ray was reviewed with him and patient was agreeable to take a higher dose of ibuprofen when necessary for the pain. He claims that the auditory hallucinations are chronic and are decreasing and non- distressing to him in nature. He states that his mood is improving gradually. Patient states that he is being dosed daily at [facility] for methadone treatment and claims that he is on 60 mg. He claims that he was able to sleep better last night. He states that his appetite has mildly been improving since being on the unit. At this time patient denies any suicidal or homical ideations, intent or plan. Patient denies any visual hallucinations however does state that he hears auditory hallucinations at times. He denies any paranoia or delusions. Patient denies any side effects from the medications and has been compliant with meds. Mental Status Exam: General Appearance: Patient appears to be stated age is alert, directable, s uperficially cooperative, guarded at times. fair hygiene and grooming. Behavior: Patient is calmly seated without any agitated behavior. Speech: Patient's speech is fluent and nonpressured. concrete. Mood/Affect: Mood is improving mildly, affect is congruent and constricted. Suicidality/Homicidality: Patient denies having any suicidal or homicidal ideation intent or plan. Perceptions: Patient denies any visual hallucinations admits to auditory hallucinations Though content/process: There is no evidence of any delusional thought content and thought process is linear and goal-directed. focused on his medications and his pain. Memory and concentration: AOX3, grossly intact for the purposes of this session Judgment and insight: superficial. Assessment: schizoaffective disorder Opiate abuse Methamphetamine abuse Nicotine dependence Plan: -Patient continues to meet criteria for inpatient psychiatric admission for symptom stabilization and safety. Patient was previously on a deferral and now a demand for hearing will be filed as patient admitted to not following up with his appointments or taking his medications. -Medications: continue with Abilify 10 mg daily for psychosis, admitted Seroquel 100 mg daily at bedtime for psychosis/insomnia. Added Wellbutrin 150 mg daily for mood. -When necessary Ativan and Geodon for agitation/aggression. -chest x-ray on 04/07/2020 - showed nondisplaced rib fracture on right anterolateral Eighth and ninth rib. -NRT - nicotine patch -SW on board for discharge planning. Encouraged the patient to participate in milieu. Will await demand hearing date. Patient apparently gets daily methadone dosing and will attempt to contact [facility] today to confirm dosing and information.
[2020-04-08] MEDS: buPROPion XL 150 MG TAB.ER.24H PO SCH (09:14)
[2020-04-08] MEDS: IBUPROFEN 800 MG TAB PO PRN (09:14)
[2020-04-08] MEDS: METHADONE 10 MG TAB PO SCH (13:23)
[2020-04-08] MEDS: QUEtiapine 100 MG TAB PO SCH (20:58)
[2020-04-08] MEDS: LORazepam 1 MG TAB PO PRN (20:58)
[2020-04-09] MEDS: IBUPROFEN 800 MG TAB PO PRN (02:16)
[2020-04-09] MEDS: NICOTINE 14MG/24HR PATCH TRANSDERM SCH (09:52)
[2020-04-09] MEDS: ARIPiprazole 10 MG TAB PO SCH (09:52)
[2020-04-09] MEDS: METHADONE 10 MG TAB PO SCH (09:53)
[2020-04-09] MEDS: buPROPion XL 150 MG TAB.ER.24H PO SCH (09:53)
--- NOTE | 2020-04-09 10:42 | P.PN ---
Progress Note - Text Progress Note Date: 04/09/20 Interval History: Patient was seen laying in bed this morning and was directable and agreeable to speak with chief underwriter in the office. patient appeared to have fair hygiene and grooming. Patient states that he did not sleep well last night and claims that he was "tossing and turning". She did not speak about his pain today and states that it is doing better. He also thanked chief underwriter for having him back on methadone. He states that he has been going to some groups except for the social media developer's group in the morning. He states that the auditory hallucinations have been progressively been improving on his medications and claims to hear them less frequently. He states that his appetite has mildly been improving since being on the unit. At this time patient denies any suicidal or homical ideations, intent or plan. Patient denies any visual hallucinations however does state that he hears auditory hallucinations at times. He denies any paranoia or delusions. Patient denies any side effects from the medications and has been compliant with meds. Patient did also speak about trying to get set up with [facility] once he is discharged from the hospital. Mental Status Exam: General Appearance: Patient appears to be stated age is alert, directable, superficially cooperative. fair hygiene and grooming. Behavior: Patient is calmly seated without any agitated behavior. More cooperative today. Speech: Patient's speech is fluent and nonpressured. concrete. Mood/Affect: Mood is improving mildly, affect is congruent and constricted. Suicidality/Homicidality: Patient denies having any suicidal or homicidal ideation intent or plan. Perceptions: Patient denies any visual hallucinations admits to auditory hallucinations which have been improving. Though content/process: There is no evidence of any delusional thought content and thought process is linear and goal-directed. Memory and concentration: AOX3, grossly intact for the purposes of this session Judgment and insight: superficial, improving mildly. Assessment: schizoaffective disorder Opiate abuse Methamphetamine abuse Nicotine dependence Plan: -Patient continues to meet criteria for inpatient psychiatric admission for symptom stabilization and safety. Patient was previously on a deferral and now currently awaiting demand date. Patient states that he would be willing to likely sign a waive and stip for his treatment order. -Medications: continue with Abilify 10 mg daily for psychosis, increased Seroquel 200 mg daily at bedtime for psychosis/insomnia. Increased Wellbutrin 300 mg daily for mood. -Continue with methadone 30 mg daily for opiate use disorder as patient is receiving daily dosing from [facility]. -When necessary Ativan and Geodon for agitation/aggression. -chest x-ray on 04/07/2020 - showed nondisplaced rib fracture on right anterolateral Eighth and ninth rib. Patient has when necessary Tylenol and Motrin for pain. -NRT - nicotine patch -SW on board for discharge planning. Encouraged the patient to participate in milieu. Will await demand hearing date. Patient states that he would likely waive and stip.
[2020-04-09] MEDS: LORazepam 1 MG TAB PO PRN (20:46)
[2020-04-09] MEDS: ACETAMINOPHEN TAB 325 MG TAB PO PRN (20:46)
[2020-04-09] MEDS ORDERED: QUEtiapine 200 MG TAB PO SCH (21:00)
[2020-04-10] MEDS: NICOTINE 14MG/24HR PATCH TRANSDERM SCH (09:32)
[2020-04-10] MEDS: METHADONE 10 MG TAB PO SCH (09:34)
[2020-04-10] MEDS: buPROPion XL 300 MG TAB.ER.24H PO SCH (09:34)
[2020-04-10] MEDS: ARIPiprazole 10 MG TAB PO SCH (09:35)
[2020-04-10] MEDS: MAG HYDROX/AL HYDROX/SIMETH 30 ML CUP PO PRN (10:32)
[2020-04-10] MEDS: LORazepam 1 MG TAB PO PRN (10:32)
--- NOTE | 2020-04-10 10:42 | P.PN ---
Progress Note - Text Progress Note Date: 04/10/20 Interval History: Patient was seen sitting in on a group this morning and was directable and agr eeable to speak with sign writer letterer or painter in the office. patient appeared to have fair hygiene and grooming. Patient continues to be preoccupied with his medications and spoke about wanting to be placed back on Adderall. He states that "I need Adderall from a ADHD so you can see what wonders it does for me". Patient also was attempting to negotiate further with sign writer letterer or painter about Klonopin and other controlled medications. He states that "that's the reason why do drugs on the street". Patient states that he slept well last night. He states that he has been pacing frequently and feels that he is restless and "can't sit still" during group. He admits to ongoing auditory hallucinations however states that they are non-distressing for him and chronic. He states that "I have conversations with my friends". He states that his appetite has mildly been improving since being on the unit. At this time patient denies any suicidal or homical ideations, intent or plan. Patient denies any visual hallucinations. He denies any paranoia or delusions. Patient denies any side effects from the medications and has been compliant with meds. Mental Status Exam: General Appearance: Patient appears to be stated age is alert, directable, superficially cooperative. Argumentative at times. fair hygiene and grooming. Behavior: Patient is calmly seated without any agitated behavior. Argumentative today. Superficial Speech: Patient's speech is fluent and nonpressured. concrete. Mood/Affect: Mood is improving mildly, affect is congruent and constricted. Suicidality/Homicidality: Patient denies having any suicidal or homicidal ideation intent or plan. Perceptions: Patient denies any visual hallucinations admits to auditory hallucinations which have been improving. Though content/process: There is no evidence of any delusional thought content and thought process is linear and goal-directed. Preoccupied with his medications. Memory and concentration: AOX3, grossly intact for the purposes of this session Judgment and insight: superficial, poor Assessment: schizoaffective disorder Opiate abuse Methamphetamine abuse Nicotine dependence Plan: -Patient continues to meet criteria for inpatient psychiatric admission for symptom stabilization and safety. Patient was previously on a deferral and now currently awaiting demand date. Patient states that he would be willing to likely sign a waive and stip for his treatment order. -Medications: Discontinued Abilify due to akathisia and restlessness. Patient is agreeable to start paliperidone tomorrow 3 mg daily for psychosis. Continue with Seroquel 200 mg daily at bedtime for psychosis/insomnia and attempt to titrate down. Continue with Wellbutrin 300 mg daily for mood. -Continue with methadone 30 mg daily for opiate use disorder as patient is receiving daily dosing from [facility]. -When necessary Ativan and Geodon for agitation/aggression. -chest x-ray on 04/07/2020 - showed nondisplaced rib fracture on right anterolateral Eighth and ninth rib. Patient has when necessary Tylenol and Motrin for pain. -NRT - nicotine patch -SW on board for discharge planning. Encouraged the patient to participate in milieu. Will await demand hearing date. Patient states that he would likely waive and stip.
[2020-04-10] MEDS: IBUPROFEN 800 MG TAB PO PRN (20:38)
[2020-04-10] MEDS ORDERED: QUEtiapine 200 MG TAB PO ONE (21:00)
[2020-04-11] MEDS ORDERED: PALIPERIDONE 3 MG TAB.ER.24 PO SCH (09:00)
[2020-04-11] MEDS: METHADONE 10 MG TAB PO SCH (10:21)
[2020-04-11] MEDS: NICOTINE 14MG/24HR PATCH TRANSDERM SCH (10:21)
[2020-04-11] MEDS: buPROPion XL 300 MG TAB.ER.24H PO SCH (10:22)
--- NOTE | 2020-04-11 11:53 | P.PN ---
Progress Note - Text Progress Note Date: 04/11/20 Interval History: Patient was seen lying in his bed today and was directable and agreeable to sp eak with life insurance underwriter in the office. patient appeared to have fair hygiene and grooming and appeared to be more cooperative with life insurance underwriter and appropriate. He states that he is feeling better today and was less argumentative. He asked about having ensure with his meals as he feels he is not eating enough. Patient also asked about having nicotine gum as well added to his medication regimen. He claims that he is taking his paliperidone and denies any side effects and was agreeable to have increased over the weekend. He states that he has been going to some groups however did not elaborate much on what he is learning. He claims that he is looking forward to court on Tuesday. Patient states that he slept well last night approximately 78 hours. He states that he is pacing less in the hallways. He admits to ongoing auditory hallucinations however states that they are non-distressing for him and chronic. At this time patient denies any suicidal or homical ideations, intent or plan. Patient denies any visual hallucinations. He denies any paranoia or delusions. Patient denies any side effects from the medications and has been compliant with meds. Mental Status Exam: General Appearance: Patient appears to be stated age is thin, alert, directable, superficially cooperative. fair hygiene and grooming. Behavior: Patient is calmly seated without any agitated behavior. More cooperative and Superficial Speech: Patient's speech is fluent and nonpressured. concrete. Mood/Affect: Mood is improving mildly, affect is congruent and constricted. Suicidality/Homicidality: Patient denies having any suicidal or homicidal ideation intent or plan. Perceptions: Patient denies any visual hallucinations admits to auditory hallucinations which have been improving Though content/process: There is no evidence of any delusional thought content and thought process is linear and goal-directed. [place]. Memory and concentration: AOX3, grossly intact for the purposes of this session Judgment and insight: superficial, poor Assessment: schizoaffective disorder Opiate abuse Methamphetamine abuse Nicotine dependence Plan: -Patient continues to meet criteria for inpatient psychiatric admission for symptom stabilization and safety. Patient has the demand hearing date set for 04/16/2020. -Medications: We'll continue with paliperidone 3 mg daily for today and tomorrow and on Tuesday will be increased to 6 mg daily for psychosis/mood stabilization. Continue with Seroquel 100 mg daily at bedtime for psychosis/insomnia and attempt to titrate down. Continue with Wellbutrin 300 mg daily for mood. -Continue with methadone 30 mg daily for opiate use disorder as patient is receiving daily dosing from [facility]. -When necessary Ativan and Geodon for agitation/aggression. -chest x-ray on 04/07/2020 - showed nondisplaced rib fracture on right anterolateral Eighth and ninth rib. Patient has when necessary Tylenol and Motrin for pain. -NRT - nicotine patch -SW on board for discharge planning. Encouraged the patient to participate in milieu. Will await demand hearing date scheduled on 04/16/2020.
[2020-04-11] MEDS: NICOTINE POLACRILEX 2 MG GUM BUCCAL PRN ×3 (11:54→18:04)
[2020-04-11] MEDS: IBUPROFEN 800 MG TAB PO PRN (14:27)
[2020-04-11] MEDS: LORazepam 1 MG TAB PO PRN (18:24)
[2020-04-11] MEDS: QUEtiapine 100 MG TAB PO SCH (21:16)
[2020-04-11] MEDS: ACETAMINOPHEN TAB 325 MG TAB PO PRN (21:16)
[2020-04-11] MEDS: MAGNESIUM HYDROXIDE 2,400 MG/10 ML CUP PO PRN (21:16)
[2020-04-12] MEDS ORDERED: PALIPERIDONE 3 MG TAB.ER.24 PO SCH (09:00)
[2020-04-12] MEDS: buPROPion XL 300 MG TAB.ER.24H PO SCH (10:01)
[2020-04-12] MEDS: METHADONE 10 MG TAB PO SCH (10:01)
[2020-04-12] MEDS: NICOTINE 14MG/24HR PATCH TRANSDERM SCH (10:03)
[2020-04-12] MEDS: NICOTINE POLACRILEX 2 MG GUM BUCCAL PRN ×2 (10:04→20:52)
[2020-04-12] MEDS: LORazepam 1 MG TAB PO PRN ×2 (12:19→23:25)
[2020-04-12] MEDS: METHADONE 5 MG TAB PO SCH (15:53)
[2020-04-12] MEDS: QUEtiapine 100 MG TAB PO SCH (20:52)
--- NOTE | 2020-04-12 23:34 | P.PN ---
Progress Note - Text Progress Note Date: 04/12/20 Subjective: Patient was seen today as a cross coverage for Dr. Vicente. The patient was evaluated, chart reviewed, case discussed with the treatment team. Patient reports interrupted sleep, and appetite was reported as "fine". Patient has been going to groups and other unit activities. The patient is compliant with his medications and denies any adverse reactions. He minimizes depression and denies any S/H ideation. Reports high anxiety and feeling jittery because he supposes to be on 70 mg daily dose of methadone as per his [facility]MTP maintenance, but he is given only 30 mg since he was admitted to this unit. He reports continued to feel withdrawal and feeling increasingly irritable due to decrease in methadone. No verification of dose was completed as per chart review and records. Discussed with nursing to confirm dose on Tuesday and verify dose and probably gradually to increase dose to help controlling withdrawal symptoms. Reports history of IVDU in last few weeks before admission and requested HIV testing. Objective: Vitals has been reviewed. Mental status examination; Appearance: The patient appears stated age, adequately groomed and dressed, no specific features. Gait/posture: Normal gait, Normal arm swinging: No abnormal movements. Attitude and behavior: engaged, cooperative, eye contact. Motor activity: Normal psychomotor activity Speech: Normal rate, tone. Mood: Anxious Affect: Constricted Thought form: goal-directed, linear, coherent. Thought content: Non-delusional, denies suicidal thoughts, denies homicidal thoughts, denies intentions or plans. Perception: Denies any auditory or visual hallucinations Attention: No impairment. Orientation: Patient patient was fully oriented to time place person and situation. Insight: Patient has fair insight about his psychiatric disorder. Judgment: Patient has fair judgment about his psychiatric treatment. Assessment: schizoaffective disorder Opiate abuse Methamphetamine abuse Nicotine dependence Plan: Continue inpatient level of care due to need for further stabilization Precautions: Continue 15 minutes check for safety. Consider medical consultation if any acute medical issues arises. Provide the patient individual, group therapy, substance use disorder counseling to give better insight and learn coping skills. Medications: Wellbutrin for mood depression. Invega for mood stabilization and psychotic symtoms. Continue Methadone 30 mg QD for MMT- given extra 5 mg once today to help with jitteriness and withdrawal symptoms. Increase Seroquel to 200 mg HS to help with insomnia and mood stabilization Continue PRN psych medications Continue non-psychiatric medications for management of co-morbid medical problems. Labs: HIV testing Discharge patient to OUTPATIENT services upon a stabilization
[2020-04-13] MEDS: buPROPion XL 300 MG TAB.ER.24H PO SCH (07:56)
[2020-04-13] MEDS: METHADONE 10 MG TAB PO SCH (07:57)
[2020-04-13] MEDS: PALIPERIDONE 6 MG TAB.ER.24 PO SCH (07:57)
[2020-04-13] MEDS: NICOTINE 14MG/24HR PATCH TRANSDERM SCH ×2 (07:58→08:45)
[2020-04-13] MEDS: METHADONE 5 MG TAB PO SCH (08:25)
[2020-04-13] MEDS: NICOTINE POLACRILEX 2 MG GUM BUCCAL PRN ×3 (08:46→22:07)
--- NOTE | 2020-04-13 13:23 | P.PN ---
Progress Note - Text Progress Note Date: 04/13/20 Subjective: Patient was seen today as a cross coverage for Dr. Vicente. The patient was evaluated, chart reviewed, case discussed with the treatment team. Patient reports continued to have interrupted sleep last night but apparently his Seroquel was not increased to 200 mg. He reports fair appetite and he has been attending groups and other unit activities. Continue to take his psychiatric medications and he denies any side effects. Reports feeling stable emotionally and denies any depression, feeling hopeless, or suicidal. Reports feeling anxious because worried about the results of his HIV testing. Results still pending and supportive therapy was provided to the patient. Patient denies any hallucinations, manic or other psychotic symptoms. He was tested for HIV based on his request because he has history of IVDU. Patient came he was on 70 mg of methadone at his methadone program, but when checked with nurse no verification was obtained or at least not documented. Reports taking extra 5 mg of methadone yesterday help with his jitteriness and irritability. Objective: Vitals has been reviewed. Mental status examination; Appearance: The patient appears stated age, adequately groomed and dressed, no specific features. Gait/posture: Normal gait, Normal arm swinging: No abnormal movements. Attitude and behavior: engaged, cooperative, eye contact. Motor activity: Normal psychomotor activity Speech: Normal rate, tone. Mood: Anxious Affect: Constricted Thought form: goal-directed, linear, coherent. Thought content: Non-delusional, denies suicidal thoughts, denies homicidal thoughts, denies intentions or plans. Perception: Denies any auditory or visual hallucinations Attention: No impairment. Orientation: Patient patient was fully oriented to time place person and situation. Insight: Patient has fair insight about his psychiatric disorder. Judgment: Patient has fair judgment about his psychiatric treatment. Assessment: schizoaffective disorder Opiate abuse Methamphetamine abuse Nicotine dependence Plan: Continue inpatient level of care due to need for further stabilization Precautions: Continue 15 minutes check for safety. Consider medical consultation if any acute medical issues arises. Provide the patient individual, group therapy, substance use disorder counseling to give better insight and learn coping skills. Medications: Wellbutrin for mood depression. Invega for mood stabilization and psychotic symtoms. Continue Methadone 30 mg QD for MMT- given extra 5 mg once today to help with jitteriness and withdrawal symptoms. Increase Seroquel to 200 mg HS to help with insomnia and mood stabilization Recommended to verify the dose from methadone maintenance treatment program and to consider adjusting his methadone dose (probably increase to 40 or 50 after verification) because if he has been receiving 70 mg on a daily basis at his program and the dose was dropped down to 30 after being admitted to this unit that could cause significant withdrawal and irritability with risk to relapse on opiates after discharge. Continue PRN psych medications Continue non-psychiatric medications for management of co-morbid medical problems. Labs: HIV testing -Results still pending. Discharge patient to OUTPATIENT services upon a stabilization
[2020-04-13] MEDS: MAGNESIUM HYDROXIDE 2,400 MG/10 ML CUP PO PRN (15:23)
[2020-04-13] MEDS: QUEtiapine 200 MG TAB PO SCH (21:34)
[2020-04-14] MEDS: PALIPERIDONE 6 MG TAB.ER.24 PO SCH (08:16)
[2020-04-14] MEDS: METHADONE 10 MG TAB PO SCH (08:16)
[2020-04-14] MEDS: buPROPion XL 300 MG TAB.ER.24H PO SCH (08:16)
[2020-04-14] MEDS: NICOTINE 14MG/24HR PATCH TRANSDERM SCH (08:16)
[2020-04-14] MEDS: NICOTINE POLACRILEX 2 MG GUM BUCCAL PRN ×3 (09:31→20:41)
--- NOTE | 2020-04-14 09:39 | P.PN ---
Progress Note - Text Progress Note Date: 04/14/20 Interval History: Patient was seen wandering the hallways this morning and was directable and ag reeable to speak with manual writer in the office. patient appeared to have fair hygiene and grooming and appeared to be more cooperative with manual writer. Patient claims that he feels he is doing better overall and spoke about his breakfast this morning and also his weekend. He states that he was able to sleep fairly well last night except for having a nightmare. Patient was less argumentative with manual writer today and appeared to be more appropriate. He continues to speak about rehab and wanting to go after court. He states that he is continuing to hear mild voices at times however states that they're non-distressing to him and have been chronic in nature. He states that he has been going to some groups however did not elaborate much on what he is learning. He states that he is pacing less in the hallways and feels less restless. Patient also spoke about methadone and wanting it to be increased to 35 mg as the weekend psychiatrist increased it mildly. At this time patient denies any suicidal or homical ideations, intent or plan. Patient denies any visual hallucinations. He denies any paranoia or delusions. Patient denies any side effects from the medications and has been compliant with meds. Mental Status Exam: General Appearance: Patient appears to be stated age is thin, alert, directable, superficially cooperative. fair hygiene and grooming. Behavior: Patient is calmly seated without any agitated behavior. More cooperative today Speech: Patient's speech is fluent and nonpressured. concrete. Mood/Affect: Mood is improving mildly, affect is congruent and constricted. Suicidality/Homicidality: Patient denies having any suicidal or homicidal ideation intent or plan. Perceptions: Patient denies any visual hallucinations admits to auditory hallucinations which have been improving and are non-distressing. Though content/process: There is no evidence of any delusional thought content and thought process is linear and goal-directed. [place]. Continues to be preoccupied with his medications. Memory and concentration: AOX3, grossly intact for the purposes of this session Judgment and insight: superficial, poor Assessment: schizoaffective disorder Opiate abuse Methamphetamine abuse Nicotine dependence Plan: -Patient continues to meet criteria for inpatient psychiatric admission for symptom stabilization and safety. Patient has the demand hearing date set for . -Medications: We'll continue with paliperidone 6 mg daily for psychosis/mood stabilization. Continue with Seroquel 200 mg daily at bedtime for psychosis/insomnia. Continue with Wellbutrin 300 mg daily for mood. -Increased methadone 35 mg daily for opiate use disorder as patient is receiving daily dosing from [facility]. -When necessary Ativan and Geodon for agitation/aggression. -chest x-ray on 04/07/2020 - showed nondisplaced rib fracture on right anterolateral Eighth and ninth rib. Patient has when necessary Tylenol and Motrin for pain. -NRT - nicotine patch -SW on board for discharge planning. Encouraged the patient to participate in milieu. Will await demand hearing date scheduled on 04/16/2020. Patient will be set up for discharge to [facility] re[facility] after hearing date.
[2020-04-14] MEDS ORDERED: METHADONE 5 MG TAB PO ONE (11:23)
[2020-04-14] MEDS: LORazepam 1 MG TAB PO PRN (12:44)
[2020-04-14] MEDS: IBUPROFEN 800 MG TAB PO PRN (12:45)
[2020-04-14 15:56] LABS: HIV 2 AB Non-Reactive (Non-Reactive); HIV AB P24 Non-Reactive (Non-Reactive); HIV P24 AG Non-Reactive (Non-Reactive)
[2020-04-14] MEDS: QUEtiapine 200 MG TAB PO SCH (20:40)
[2020-04-15] MEDS ORDERED: METHADONE 5 MG TAB PO SCH (09:00)
[2020-04-15] MEDS ORDERED: PALIPERIDONE IM 234 MG/1.5 ML SYG IM STA (09:19)
[2020-04-15] MEDS: NICOTINE 14MG/24HR PATCH TRANSDERM SCH (09:30)
[2020-04-15] MEDS: buPROPion XL 300 MG TAB.ER.24H PO SCH (09:30)
[2020-04-15] MEDS: METHADONE 10 MG TAB PO SCH (09:30)
[2020-04-15] MEDS: PALIPERIDONE 6 MG TAB.ER.24 PO SCH (09:34)
[2020-04-15] MEDS: METHADONE 5 MG TAB PO SCH (09:34)
--- NOTE | 2020-04-15 09:35 | P.PN ---
Progress Note - Text Progress Note Date: 04/15/20 Interval History: Patient was seen wandering the hallways this morning and was directable and ag reeable to speak with screen writer in the office. Patient continues to be cooperative with screen writer and offered overnight complaints. He states that he was able to sleep well throughout the night. Patient appeared to be less focused on his medications today and was cooperative with treatment plan. He states that he agrees to appear in court tomorrow and talk with the [employer] consultant about his treatment plan. He asked other questions about his medications going forward. Patient was agreeable to take the Invega Sustenna loading dose today. He claims that his mood has been improving mildly. He states that he is continuing to hear mild voices at times however states that they're non-distressing to him and have been chronic in nature. He states that he has been going to some groups however did not elaborate much on what he is learning. At this time patient denies any suicidal or homical ideations, intent or plan. Patient denies any visual hallucinations. He denies any paranoia or delusions. Patient denies any side effects from the medications and has been compliant with meds. Mental Status Exam: General Appearance: Patient appears to be stated age is thin, alert, directable, superficially cooperative. fair hygiene and grooming. Behavior: Patient is calmly seated without any agitated behavior. More cooperative today Speech: Patient's speech is fluent and nonpressured. concrete. Mood/Affect: Mood is improving mildly, affect is congruent and constricted. Suicidality/Homicidality: Patient denies having any suicidal or homicidal ideation intent or plan. Perceptions: Patient denies any visual hallucinations admits to auditory hallucinations which have been improving and are non-distressing. Though content/process: There is no evidence of any delusional thought content and thought process is linear and goal-directed. [place]. Memory and concentration: AOX3, grossly intact for the purposes of this session Judgment and insight: superficial, improving mildly Assessment: schizoaffective disorder Opiate abuse Methamphetamine abuse Nicotine dependence Plan: -Patient continues to meet criteria for inpatient psychiatric admission for symptom stabilization and safety. Patient has the demand hearing date set for 04/16/2020. -Medications: We'll continue with paliperidone 6 mg daily for psychosis/mood stabilization. Patient is agreeable to take Invega Sustenna 234 mg loading dose today. Continue with Seroquel 200 mg daily at bedtime for psychosis/insomnia. Continue with Wellbutrin 300 mg daily for mood. -Continue with methadone 35 mg daily for opiate use disorder as patient is receiving daily dosing from [facility]. -When necessary Ativan and Geodon for agitation/aggression. -chest x-ray on 04/07/2020 - showed nondisplaced rib fracture on right anterolateral Eighth and ninth rib. Patient has when necessary Tylenol and Motrin for pain. -NRT - nicotine patch -SW on board for discharge planning. Encouraged the patient to participate in milieu. Will await demand hearing date scheduled on 04/16/2020. Patient has [facility] intake on 04/22/2020.
[2020-04-15] MEDS: NICOTINE POLACRILEX 2 MG GUM BUCCAL PRN ×3 (09:38→21:05)
[2020-04-15] MEDS: MAGNESIUM HYDROXIDE 2,400 MG/10 ML CUP PO PRN (09:38)
[2020-04-15] MEDS: ACETAMINOPHEN TAB 325 MG TAB PO PRN (10:36)
[2020-04-15] MEDS: LORazepam 1 MG TAB PO PRN (10:37)
[2020-04-15] MEDS ORDERED: NA PHOS,M-B/NA PHOS,DI-BA 133 ML ENEMA RECTAL ONE (16:34)
[2020-04-15] MEDS: QUEtiapine 200 MG TAB PO SCH (21:04)
[2020-04-16] MEDS: ACETAMINOPHEN TAB 325 MG TAB PO PRN (05:54)
[2020-04-16] MEDS: buPROPion XL 300 MG TAB.ER.24H PO SCH (08:39)
[2020-04-16] MEDS: NICOTINE 14MG/24HR PATCH TRANSDERM SCH (08:39)
[2020-04-16] MEDS: METHADONE 10 MG TAB PO SCH (08:39)
[2020-04-16] MEDS: METHADONE 5 MG TAB PO SCH (08:39)
[2020-04-16] MEDS: PALIPERIDONE 6 MG TAB.ER.24 PO SCH (08:40)
[2020-04-16] MEDS: NICOTINE POLACRILEX 2 MG GUM BUCCAL PRN (08:40)
[2020-04-16] MEDS: MAGNESIUM HYDROXIDE 2,400 MG/10 ML CUP PO PRN (10:05)
--- NOTE | 2020-04-16 10:07 | P.PN ---
Progress Note - Text Progress Note Date: 04/16/20 Interval History: Patient was seen wandering the hallways near the nursing desk after taking his medications this morning and was directable and agreeable to speak with advertising copy writer in the office. Patient continues to be cooperative with advertising copy writer and offered no overnight complaints. He states that he was able to sleep well throughout the night however did state that he had several awakenings last night. Patient spoke about his upcoming court appearance which is today. He continues to be agreeable to the treatment plan. He requested to have his methadone increased to 40mg as he is still having cravings from opiates. He claims that he tolerated the long acting injection well yesterday. He claims that his mood has been improving mildly. He continues to states that he is continuing to hear mild voices at times however states that they're non-distressing to him and have been chronic in nature. He states that he has been going to some groups however did not elaborate much on what he is learning. At this time patient denies any suicidal or homical ideations, intent or plan. Patient denies any visual hallucinations. He denies any paranoia or delusions. Patient denies any side effects from the medications and has been compliant with meds. Mental Status Exam: General Appearance: Patient appears to be stated age is thin, alert, directable, superficially cooperative. fair hygiene and grooming. Behavior: Patient is calmly seated without any agitated behavior. More cooperative today Speech: Patient's speech is fluent and nonpressured. concrete. Mood/Affect: Mood is improving mildly, affect is congruent and constricted. Suicidality/Homicidality: Patient denies having any suicidal or homicidal ideation intent or plan. Perceptions: Patient denies any visual hallucinations admits to auditory hallucinations which have been improving and are non-distressing. Though content/process: There is no evidence of any delusional thought content and thought process is linear and goal-directed. [place]. Memory and concentration: AOX3, grossly intact for the purposes of this session Judgment and insight: superficial, improving mildly Assessment: schizoaffective disorder Opiate abuse Methamphetamine abuse Nicotine dependence Plan: -Patient continues to meet criteria for inpatient psychiatric admission for symptom stabilization and safety. Patient has the demand hearing date set for 04/16/2020. -Medications: We'll decrease paliperidone 3 mg daily for psychosis/mood stabilization. Patient took Invega Sustenna 234 mg loading dose on 04/15/2020 and will be due for his next dose of 156 mg IM on 04/21/2020. Continue with Seroquel 200 mg daily at bedtime for psychosis/insomnia. Continue with Wellbutrin 300 mg daily for mood. -Increased methadone 40 mg daily for opiate use disorder as patient is receiving daily dosing from [facility]. -When necessary Ativan and Geodon for agitation/aggression. -chest x-ray on 04/07/2020 - showed nondisplaced rib fracture on right anterolateral Eighth and ninth rib. Patient has when necessary Tylenol and Motrin for pain. -NRT - nicotine patch -SW on board for discharge planning. Encouraged the patient to participate in milieu. Will await demand hearing date scheduled on 04/16/2020. Patient has [place] intake on 04/22/2020. Likely discharge in 1-2 days back home.
[2020-04-16] MEDS ORDERED: PROPRANOLOL 20 MG TAB PO STA (10:13)
[2020-04-16] MEDS: SENNOSIDES-DOCUSATE SODIUM 1 EACH TAB PO SCH ×2 (11:18→22:28)
[2020-04-16] MEDS: QUEtiapine 200 MG TAB PO SCH (22:28)
[2020-04-17] MEDS: PROPRANOLOL 20 MG TAB PO PRN (08:37)
[2020-04-17] MEDS: METHADONE 10 MG TAB PO SCH (08:37)
[2020-04-17] MEDS: NICOTINE 14MG/24HR PATCH TRANSDERM SCH (08:37)
[2020-04-17] MEDS: buPROPion XL 300 MG TAB.ER.24H PO SCH (08:37)
[2020-04-17] MEDS: NICOTINE POLACRILEX 2 MG GUM BUCCAL PRN ×3 (08:38→18:27)
[2020-04-17] MEDS: SENNOSIDES-DOCUSATE SODIUM 1 EACH TAB PO SCH ×2 (08:38→20:52)
[2020-04-17] MEDS ORDERED: PALIPERIDONE 3 MG TAB.ER.24 PO SCH (09:00)
[2020-04-17] MEDS: MAGNESIUM HYDROXIDE 2,400 MG/10 ML CUP PO PRN (09:55)
--- NOTE | 2020-04-17 10:16 | P.PN ---
Progress Note - Text Progress Note Date: 04/17/20 Interval History: Patient was seen wandering the hallways after leaving [facility] group this m orning and was directable and agreeable to speak with medical technical writer in the office. Patient continues to be cooperative with medical technical writer and offered no overnight complaints. She states that the propranolol did help him yesterday and today mildly with akathisia and pacing however continues to have a low blood pressure. Patient was encouraged to take Ativan as well to help with the restlessness. He continues to state that he is sleeping fairly overnight and denied any complaints. Patient spoke more about his medications and possible discharge and claims that he is looking for a new place to live as he is not allowed back at his girlfriend's house. He claims that his mood has been improving mildly and appears to be more future oriented today. He continues to states that he is continuing to hear mild voices at times however states that they're non- distressing to him and have been chronic in nature. He states that he has been going to groups and trying to interact with other patients on the unit. At this time patient denies any suicidal or homical ideations, intent or plan. Patient denies any visual hallucinations. He denies any paranoia or delusions. Patient denies any side effects from the medications and has been compliant with meds. Mental Status Exam: General Appearance: Patient appears to be stated age is thin, alert, directable, superficially cooperative. fair hygiene and grooming. Behavior: Patient is calmly seated without any agitated behavior. More cooperative today Speech: Patient's speech is fluent and nonpressured. Mood/Affect: Mood is improving mildly, affect is congruent and constricted. Suicidality/Homicidality: Patient denies having any suicidal or homicidal ideation intent or plan. Perceptions: Patient denies any visual hallucinations admits to auditory sparks llucinations which have been improving and are non-distressing. Though content/process: There is no evidence of any delusional thought content and thought process is linear and goal-directed. [place]. More future oriented today. Memory and concentration: AOX3, grossly intact for the purposes of this session Judgment and insight: superficial, improving mildly Assessment: schizoaffective disorder Opiate abuse Methamphetamine abuse Nicotine dependence Plan: -Patient continues to meet criteria for inpatient psychiatric admission for symptom stabilization and safety. Patient has the demand hearing date set for 04/16/2020. -Medications: We'll discontinue oral paliperidone. Patient took Invega Sustenna 234 mg loading dose on 04/15/2020 and will be due for his next dose of 156 mg IM on 04/21/2020. Continue with Seroquel 200 mg daily at bedtime for psychosis/insomnia. Continue with Wellbutrin 300 mg daily for mood. -Continue with methadone 40 mg daily for opiate use disorder as patient is rec eiving daily dosing from [facility]. -When necessary Ativan and Geodon for agitation/aggression. -chest x-ray on 04/07/2020 - showed nondisplaced rib fracture on right anterolateral Eighth and ninth rib. Patient has when necessary Tylenol and Motrin for pain. -NRT - nicotine patch -SW on board for discharge planning. Encouraged the patient to participate in milieu. Will await demand hearing date scheduled on 04/16/2020. Patient has [facility] intake on 04/22/2020. Patient will work with social staff worker today for different options for discharge which will likely happen tomorrow.
[2020-04-17] MEDS: QUEtiapine 200 MG TAB PO SCH (20:52)
[2020-04-17] MEDS: LORazepam 1 MG TAB PO PRN (21:16)
[2020-04-18] MEDS: METHADONE 10 MG TAB PO SCH (08:28)
[2020-04-18] MEDS: NICOTINE 14MG/24HR PATCH TRANSDERM SCH (08:28)
[2020-04-18] MEDS: buPROPion XL 300 MG TAB.ER.24H PO SCH (08:28)
[2020-04-18] MEDS: NICOTINE POLACRILEX 2 MG GUM BUCCAL PRN ×3 (08:28→18:19)
[2020-04-18] MEDS: SENNOSIDES-DOCUSATE SODIUM 1 EACH TAB PO SCH ×2 (08:28→20:33)
[2020-04-18] MEDS: PROPRANOLOL 20 MG TAB PO PRN ×2 (10:25→20:33)
[2020-04-18] MEDS: MAGNESIUM HYDROXIDE 2,400 MG/10 ML CUP PO PRN (10:26)
--- NOTE | 2020-04-18 13:01 | P.PN ---
Progress Note - Text Progress Note Date: 04/18/20 Interval History: Patient was seen wandering the hallways this morning and was directable and ag reeable to speak with curriculum writer in the office. Patient appeared to be more cooperative and appropriate with curriculum writer today. He states that he is continuing to have some mild akathisia over to state that the propranolol as been helping him. He states that he is able to sleep mildly better last night however did have some night sweats. He states that he is thinking more about the future and his discharge planning. He states that he may be able to stay with one of his friends next week. He claims that he feels that he may relapse over the weekend if he is released from the hospital on substances. He claims that his mood has been improving mildly and appears to be more future oriented today. He continues to states that he is continuing to hear mild voices at times however states that they're non-distressing to him and have been chronic in nature. He states that he has been going to groups and trying to interact with others. At this time patient denies any suicidal or homical ideations, intent or plan. Patient denies any visual hallucinations. He denies any paranoia or delusions. Patient denies any side effects from the medications and has been compliant with meds. Patient is agreeable to take his long-acting injection on Tuesday morning. Mental Status Exam: General Appearance: Patient appears to be stated age is thin, alert, directable, superficially cooperative. fair hygiene and grooming. Behavior: Patient is calmly seated without any agitated behavior. More cooperative today Speech: Patient's speech is fluent and nonpressured. Mood/Affect: Mood is improving mildly, affect is congruent and constricted. Suicidality/Homicidality: Patient denies having any suicidal or homicidal ideation intent or plan. Perceptions: Patient denies any visual hallucinations admits to auditory hallucinations which have been improving and are non-distressing. Though content/process: There is no evidence of any delusional thought content and thought process is linear and goal-directed. More future oriented today. Focus on his medications. Memory and concentration: AOX3, grossly intact for the purposes of this session Judgment and insight: superficial, improving mildly Assessment: schizoaffective disorder Opiate abuse Methamphetamine abuse Nicotine dependence Plan: -Patient continues to meet criteria for inpatient psychiatric admission for symptom stabilization and safety. Patient is currently on an active treatment order started on 04/16/2020. -Medications: Patient took Invega Sustenna 234 mg loading dose on 04/15/2020 and will be due for his next dose of 156 mg IM on 04/21/2020. Continue with Seroquel 200 mg daily at bedtime for psychosis/insomnia. Continue with Wellbutrin 300 mg daily for mood. -Continue with methadone 40 mg daily for opiate use disorder as patient is receiving daily dosing from [facility]. -When necessary Ativan and Geodon for agitation/aggression. -chest x-ray on 04/07/2020 - showed nondisplaced rib fracture on right anterolateral Eighth and ninth rib. Patient has when necessary Tylenol and Motrin for pain. -NRT - nicotine patch -SW on board for discharge planning. Encouraged the patient to participate in milieu. Patient received the court order for treatment on 04/16/2020. Patient has [place] intake on 04/22/2020. Due to patient's high risk and impulsivity of possible relapse over the weekend and due to the fact that patient will require his second dose of Invega Sustenna on Tuesday patient will be held over the weekend and discharged on Tuesday.
[2020-04-18] MEDS: LORazepam 1 MG TAB PO PRN (14:51)
[2020-04-18] MEDS: QUEtiapine 200 MG TAB PO SCH (20:33)
[2020-04-19] MEDS: buPROPion XL 300 MG TAB.ER.24H PO SCH (08:18)
[2020-04-19] MEDS: NICOTINE 14MG/24HR PATCH TRANSDERM SCH (08:18)
[2020-04-19] MEDS: SENNOSIDES-DOCUSATE SODIUM 1 EACH TAB PO SCH ×2 (08:18→20:34)
[2020-04-19] MEDS: METHADONE 10 MG TAB PO SCH (08:20)
[2020-04-19] MEDS: NICOTINE POLACRILEX 2 MG GUM BUCCAL PRN ×6 (08:20→20:34)
--- NOTE | 2020-04-19 09:48 | P.PN ---
Progress Note - Text Progress Note Date: 04/19/20 Interval History: Patient was seen wandering the hallways this morning and was directable and ag reeable to speak with screen writer in the office. Was seen for weekend coverage today. He denied any complaints today however did speak about the other patients on the unit being "druggies" and that they are not here to do better for themselves or stay sober. He states that some of them have talked to him about going out and using again and he states that he wants to stay away from that. He claims that his mood has been improving mildly and appears to be more future oriented today. He continues to states that he is continuing to hear mild voices at times however states that they're non-distressing to him and have been chronic in nature. He states that he has been going to groups. At this time patient denies any suicidal or homical ideations, intent or plan. Patient denies any visual hallucinations. He denies any paranoia or delusions. Patient denies any side effects from the medications and has been compliant with meds. Patient is agreeable to take his long-acting injection on Tuesday morning. Mental Status Exam: General Appearance: Patient appears to be stated age is thin, alert, directable, superficially cooperative. fair hygiene and grooming. Behavior: Patient is calmly seated without any agitated behavior. More cooperative today Speech: Patient's speech is fluent and nonpressured. Mood/Affect: Mood is improving mildly, affect is congruent and constricted. Suicidality/Homicidality: Patient denies having any suicidal or homicidal ideation intent or plan. Perceptions: Patient denies any visual hallucinations admits to auditory hallucinations which have been improving and are non-distressing. Though content/process: There is no evidence of any delusional thought content and thought process is linear and goal-directed. More future oriented today. Memory and concentration: AOX3, grossly intact for the purposes of this session Judgment and insight: superficial, improving mildly Assessment: schizoaffective disorder Opiate abuse Methamphetamine abuse Nicotine dependence Plan: -Patient continues to meet criteria for inpatient psychiatric admission for symptom stabilization and safety. Patient is currently on an active treatment order started on 04/16/2020. -Medications: Patient took Invega Sustenna 234 mg loading dose on 04/15/2020 and will be due for his next dose of 156 mg IM on 04/21/2020. Continue with Seroquel 200 mg daily at bedtime for psychosis/insomnia. Continue with Wellbutrin 300 mg daily for mood. -Continue with methadone 40 mg daily for opiate use disorder as patient is receiving daily dosing from [facility]. -When necessary Ativan and Geodon for agitation/aggression. -chest x-ray on 04/07/2020 - showed nondisplaced rib fracture on right anterolateral Eighth and ninth rib. Patient has when necessary Tylenol and Motrin for pain. -NRT - nicotine patch -SW on board for discharge planning. Encouraged the patient to participate in milieu. Patient received the court order for treatment on 04/16/2020. Patient has [place] intake on 04/22/2020. Due to patient's high risk and impulsivity of possible relapse over the weekend and due to the fact that patient will require his second dose of Invega Sustenna on Tuesday patient will be held over the weekend and discharged on Tuesday.
[2020-04-19] MEDS: MAGNESIUM HYDROXIDE 2,400 MG/10 ML CUP PO PRN (11:45)
[2020-04-19] MEDS: LORazepam 1 MG TAB PO PRN (14:21)
[2020-04-19] MEDS: PROPRANOLOL 20 MG TAB PO PRN (14:53)
[2020-04-19] MEDS: QUEtiapine 200 MG TAB PO SCH (20:34)
[2020-04-20 06:09] VITALS: RESP 16
[2020-04-20] MEDS: buPROPion XL 300 MG TAB.ER.24H PO SCH (08:54)
[2020-04-20] MEDS: NICOTINE 14MG/24HR PATCH TRANSDERM SCH (08:54)
[2020-04-20] MEDS: SENNOSIDES-DOCUSATE SODIUM 1 EACH TAB PO SCH ×2 (08:54→21:43)
[2020-04-20] MEDS: METHADONE 10 MG TAB PO SCH (08:56)
[2020-04-20] MEDS: NICOTINE POLACRILEX 2 MG GUM BUCCAL PRN ×6 (08:56→21:43)
--- NOTE | 2020-04-20 10:09 | P.PN ---
Progress Note - Text Progress Note Date: 04/20/20 Interval History: Patient was seen wandering the hallways this morning and was directable and ag reeable to speak with auto service writer in the office. Patient continues to complain of some restlessness at times and states that the propranolol has been helping him and was agreeable to take Ativan when necessary at a lower dose to help with that and continue to monitor. He denied any complaints today. He claims that his mood has been improving mildly and appears to be more future oriented today speaking about his medications and also trying to maintain his sobriety. He claims that the voices have been improving significantly and are non-distressing to him at this point. He states that he has been going to groups. At this time patient denies any suicidal or homical ideations, intent or plan. Patient denies any visual hallucinations. He denies any paranoia or delusions. Patient denies any side effects from the medications and has been compliant with meds. Patient is agreeable to take his long-acting injection on Tuesday morning. Mental Status Exam: General Appearance: Patient appears to be stated age is thin, alert, directable, superficially cooperative. fair hygiene and grooming. Behavior: Patient is calmly seated without any agitated behavior. More cooperative today Speech: Patient's speech is fluent and nonpressured. Mood/Affect: Mood is improving mildly, affect is congruent and constricted. Suicidality/Homicidality: Patient denies having any suicidal or homicidal ideation intent or plan. Perceptions: Patient denies any visual hallucinations admits to auditory hallucinations which have been improving and are non-distressing. Though content/process: There is no evidence of any delusional thought content and thought process is linear and goal-directed. More future oriented today. Memory and concentration: AOX3, grossly intact for the purposes of this session Judgment and insight: superficial, improving mildly Assessment: schizoaffective disorder Opiate abuse Methamphetamine abuse Nicotine dependence Plan: -Patient continues to meet criteria for inpatient psychiatric admission for symptom stabilization and safety. Patient is currently on an active treatment order started on 04/16/2020. -Medications: Patient took Invega Sustenna 234 mg loading dose on 04/15/2020 and will be due for his next dose of 156 mg IM on 04/21/2020. Continue with Seroquel 200 mg daily at bedtime for psychosis/insomnia. Continue with Wellbutrin 300 mg daily for mood. Changed Ativan when necessary 0.5 mg 4 times a day for restlessness. Continue with propranolol 20 mg twice a day when necessary for akathisia. -Continue with methadone 40 mg daily for opiate use disorder as patient is receiving daily dosing from [facility]. -When necessary Ativan and Geodon for agitation/aggression. -chest x-ray on 04/07/2020 - showed nondisplaced rib fracture on right anterolateral Eighth and ninth rib. Patient has when necessary Tylenol and Motrin for pain. -NRT - nicotine patch -SW on board for discharge planning. Encouraged the patient to participate in milieu. Patient received the court order for treatment on 04/16/2020. Patient has [place] intake on 04/22/2020. Due to patient's high risk and impulsivity of possible relapse over the weekend and due to the fact that patient will require his second dose of Invega Sustenna on Tuesday patient will be held over the weekend and discharged liekly on Tuesday.
[2020-04-20] MEDS: LORazepam 1 MG TAB PO PRN ×2 (10:50→16:21)
[2020-04-20] MEDS: PROPRANOLOL 20 MG TAB PO PRN (10:54)
[2020-04-20] MEDS: QUEtiapine 200 MG TAB PO SCH (21:43)
[2020-04-21 00:48] VITALS: BP 104/68; PULSE 71; TEMP 98.2
[2020-04-21] MEDS ORDERED: PALIPERIDONE IM 156 MG/ML SYG IM ONE (09:00)
[2020-04-21] MEDS: NICOTINE 14MG/24HR PATCH TRANSDERM SCH (09:27)
[2020-04-21] MEDS: METHADONE 10 MG TAB PO SCH (09:27)
[2020-04-21] MEDS: buPROPion XL 300 MG TAB.ER.24H PO SCH (09:27)
[2020-04-21] MEDS: SENNOSIDES-DOCUSATE SODIUM 1 EACH TAB PO SCH (09:28)
[2020-04-21] MEDS: NICOTINE POLACRILEX 2 MG GUM BUCCAL PRN (09:28)
[2020-04-21] MEDS: LORazepam 1 MG TAB PO PRN (09:56)
--- NOTE | 2020-04-21 09:58 | P.DS ---
Providers Date of admission: 04/05/20 21:40 Expected date of discharge: 04/21/20 Attending physician: Sae Vicente MD Consults: 04/05/20 21:44 Consult Physician Routine Consulting Provider: Mark Nicole Consult Reason/Comments: medical management Do you want consulting provider notified?: Yes Primary care physician: Stated None - Discharge Diagnosis(es) (1) Schizoaffective disorder, unspecified Current Visit: Yes Status: Acute Priority: High (2) Opioid use disorder Current Visit: Yes Status: Acute Priority: Medium (3) Methamphetamine abuse Current Visit: Yes Status: Acute Priority: Medium (4) Nicotine dependence Current Visit: Yes Status: Acute Priority: Low Hospital Course: Admission HPI: Patient is a 34-year-old male with a history of schizoaffective disorder and polysubstance abuse who is currently homeless. Patient is a 35-year-old male presenting to the emergency department for mental health evaluation. Patient states he has been off his medications for years. Patient states he hears voices. For example he hears the voice of his girlfriend Cal who is sometimes supportive and sometimes mean.. Patient states sometimes he sees things such as people on the TV talking to him peoples faces changing to where they don't seem to be who they say they are. He sometimes worries that his food is been poisoned feels that people talk about him and follow him. No suicidal ideation. However he says that his life is Focht up and that he needs to be locked up for 6 months to stay clear of drugs and find the medicines that worked best. Patient states sometimes he likes to imagine that he forces people to kill other people. Patient states he has been eating and drinking well. Patient states he's been sleeping and taking care of himself well. No physical complaints other than always being skinny no matter how much he eats. Patient does admit to taking several street drugs including meth and heroin He claims that he was using methamphetamine. He claims to use any kind of street drugs he can get his hands on. however was unclear about the quantity and states that he has also used Suboxone. Upon admission to the unit he became agitated and aggressive demanding food and required a when necessary to help him calm down. Hospital course: Upon admission to the unit patient was initially psychotic, hearing voices and was using several street drugs.. Patient was however directable and agreeable to commence treatment. Patient was previously on a deferral and demand for hearing was filed. Patient had a demand for hearing court date scheduled for 04/16/2020 and waive and stipped agreeing to a treatment order. Patient got along well with other patients on the unit and followed unit protocol. Patient was compliant with the medications. Patient was started on paliperidone and titrated up to a dose of 6 mg daily for psychosis. The patient was agreeable to be transitioned onto Invega Sustenna and given a loading dose of 234 mg IM on 04/15/2020 and also given a second dose of 156 mg IM on day of discharge 04/21/2020. Patient will be due for his next maintenance dose of 117 mg IM on 05/12/2020 and monthly thereafter. Continue with Seroquel 200 mg daily at bedtime for psychosis/insomnia. We were unable to control patient's symptoms without the second antipsychotic which gave more sedating properties at nighttime. This dose can be reevaluated as an outpatient. Continue with Wellbutrin 300 mg daily for mood, Ativan 0.5 mg twice a day when necessary for restlessness/akathisia and propranolol 20 mg twice a day when necessary for akathisia/restlessness. Patient was also restarted on methadone and dose was confirmed with [facility] in [place] where he gets daily dosing. Patient was titrated up to dose of 40 mg daily and last dosed day of discharge. Patient spoke of his stressors and engaged in therapy both group and individual. Patient was also seen by medical team for history and physical exam. Patient had a chest x-ray completed on 04/07/2024 a suspected history of trauma and reported broken rib/pain. There is found to be no acute cardiopulmonary process and also some cortical irregularity involving the right anterolateral eighth and ninth ribs and to correlate for tenderness for potential subtle nondisplaced rib fracture. This was treated with when necessary Tylenol and Motrin and patient gradually improved with regards to his pain and denied any shortness of breath. Throughout the course of the hospitalization patient gradually improved with regards to mood, anxiety, psychosis/hallucinations, sleep and became more future oriented with improved insight and judgment. On the day of discharge patient denied any suicidal or homicidal ideations intent or plan denied any auditory or visual hallucinations. Patient endorsed wanting to live for his future and his sobriety. The patient denied any access to guns or weapons. Patient denied any paranoia and did not endorse any delusions. Patient does have a significant history of substance abuse and was counseled on abstaining from all substances including alcohol and marijuana. Patient was offered inpatient substance abuse rehab and agreed to go to [facility] for rehab which is scheduled on 04/22/2020 day after discharge. Patient will be discharged to his friend's house to gather his belongings and then go to rehab the next day. Patient was also counseled on the medications and need for regular compliance and was encouraged to follow-up with their outpatient appointment for mental health and also for primary care. Mental status exam: General Appearance: Patient appears to be tall, thin, stated age is alert, pleasant, and cooperative. Patient is in no acute distress and has fair hygiene and grooming Behavior: Patient is calmly seated without any agitated behavior. Cooperative. Speech: Patient's speech is fluent and nonpressured. Mood/Affect: Patient reports their mood is "much better", affect is congruent and euthymic. Suicidality/Homicidality: Patient denies having any suicidal or homicidal ideation intent or plan. Perceptions: Patient denies any auditory or visual hallucinations. Though content/process: There is no evidence of any delusional thought content and thought process is linear and goal-directed. more future oriented and spoke about his sobriety. Memory and concentration: AOX3, grossly intact for the purposes of this session. Can spell "WORLD" backwards correctly. Judgment and insight: Improved with guarded prognosis Impression: Schizoaffective disorder Opioid use disorder, currently on agonist therapy Methamphetamine abuse Nicotine dependence Plan: -Continue with discharge today as patient has improved and stabilized psychiatrically and is not currently an imminent threat to himself and/or others. Patient will remain at chronically elevated risk for harm to self and/or others due to his impulsivity and polysubstance abuse. -Continue medications: Patient was started on Invega Sustenna and given a loading dose of 234 mg IM on 04/15/2020 and also given a second dose of 156 mg IM on day of discharge 04/21/2020. Patient will be due for his next maintenance dose of 117 mg IM on 05/12/2020 and monthly thereafter. Continue with Wellbutrin 300 mg daily for mood, Seroquel 200 mg nightly for psychosis/insomnia. When necessary Ativan twice a day 0.5 mg for restlessness/akathisia and also propranolol 20 mg twice a day when necessary for akathisia. -Patient was counseled on the need for medication compliance and appropriate follow-up at mental health and also primary care for medical issues. Patient verbalized understanding and agreed. -Social work helped arrange for patient's intake date at [facility] on 04/22/2020. Patient will be staying with his friend one night to gather his belongings and then go to rehab the next day. Patient will also be going to [facility] in [place] for continued dosing of methadone. Social work also to arrange for patients follow up appointments with [facility] for psychiatric care along with follow up with primary care provider. -Patient counseled on abstaining from recreational drugs and marijuana and alcohol. Was informed/educated on the adverse effects on their physical and mental health. Patient verbally agreed and understood. -Patient was instructed to return to the hospital or seek immediate medical care if their psychiatric or medical symptoms do worsen or reoccur. Allergies Allergy/AdvReac Type Severity Reaction Status Date / Time haloperidol Allergy Unknown Verified 04/05/20 19:08 Laboratory Results WBC 4.7 k/uL (3.8-10.6) 04/07/20 07:33 RBC 4.32 m/uL (4.30-5.90) 04/07/20 07:33 Hgb 12.3 gm/dL (13.0-17.5) L 04/07/20 07:33 Hct 38.6 % (39.0-53.0) L 04/07/20 07:33 MCV 89.3 fL (80.0-100.0) 04/07/20 07:33 MCH 28.5 pg (25.0-35.0) 04/07/20 07:33 MCHC 31.9 g/dL (31.0-37.0) 04/07/20 07:33 RDW 14.6 % (11.5-15.5) 04/07/20 07:33 Plt Count 332 k/uL (150-450) 04/07/20 07:33 Neutrophils % 30 % 04/07/20 07:33 Lymphocytes % 54 % 04/07/20 07:33 Monocytes % 6 % 04/07/20 07:33 Eosinophils % 5 % 04/07/20 07:33 Basophils % 2 % 04/07/20 07:33 Neutrophils # 1.4 k/uL (1.3-7.7) 04/07/20 07:33 Lymphocytes # 2.5 k/uL (1.0-4.8) 04/07/20 07:33 Monocytes # 0.3 k/uL (0-1.0) 04/07/20 07:33 Eosinophils # 0.2 k/uL (0-0.7) 04/07/20 07:33 Basophils # 0.1 k/uL (0-0.2) 04/07/20 07:33 Sodium 136 mmol/L (137-145) L 04/07/20 07:33 Potassium 4.6 mmol/L (3.5-5.1) 04/07/20 07:33 Chloride 102 mmol/L (98-107) 04/07/20 07:33 Carbon Dioxide 29 mmol/L (22-30) 04/07/20 07:33 Anion Gap 5 mmol/L 04/07/20 07:33 BUN 8 mg/dL (9-20) L 04/07/20 07:33 Creatinine 0.58 mg/dL (0.66-1.25) L 04/07/20 07:33 Est GFR (CKD-EPI)AfAm >90 (>60 ml/min/1.73 sqM) 04/07/20 07:33 Est GFR (CKD-EPI)NonAf >90 (>60 ml/min/1.73 sqM) 04/07/20 07:33 Glucose 77 mg/dL (74-99) 04/07/20 07:[address] Glu mg/dL 97 04/07/20 07:33 Hemoglobin A1c 5.0 % (4.0-6.0) 04/07/20 07:33 Calcium 8.1 mg/dL (8.4-10.2) L 04/07/20 07:33 Total Bilirubin 0.4 mg/dL (0.2-1.3) 04/07/20 07:33 AST 46 U/L (17-59) 04/07/20 07:33 ALT 239 U/L (4-49) H 04/07/20 07:33 Alkaline Phosphatase 92 U/L (38-126) 04/07/20 07:33 Creatine Kinase 62 U/L (55-170) 04/07/20 07:33 Total Protein 5.9 g/dL (6.3-8.2) L 04/07/20 07:33 Albumin 2.7 g/dL (3.5-5.0) L 04/07/20 07:33 Triglycerides 71 mg/dL (<150) 04/07/20 07:33 Cholesterol 122 mg/dL (<200) 04/07/20 07:33 LDL Cholesterol, Calc 88 mg/dL (0-99) 04/07/20 07:33 HDL Cholesterol 20 mg/dL (40-60) L 04/07/20 07:33 TSH 1.180 mIU/L (0.465-4.680) 04/07/20 07:33 Urine Opiates Screen Not Detected (NotDetected) 04/05/20 18:17 Ur Oxycodone Screen Not Detected (NotDetected) 04/05/20 18:17 Urine Methadone Screen Detected (NotDetected) H 04/05/20 18:17 Ur Propoxyphene Screen Not Detected (NotDetected) 04/05/20 18:17 Ur Barbiturates Screen Not Detected (NotDetected) 04/05/20 18:17 U Tricyclic Antidepress Not Detected (NotDetected) 04/05/20 18:17 Ur Phencyclidine Scrn Not Detected (NotDetected) 04/05/20 18:17 Ur Amphetamines Screen Detected (NotDetected) H 04/05/20 18:17 U Methamphetamines Scrn Detected (NotDetected) H 04/05/20 18:17 U Benzodiazepines Scrn Not Detected (NotDetected) 04/05/20 18:17 Urine Cocaine Screen Detected (NotDetected) H 04/05/20 18:17 U Marijuana (THC) Screen Not Detected (NotDetected) 04/05/20 18:17 HIV-1 Antibody Non-Reactive (Non-Reactive) 04/13/20 07:42 HIV Ag/Ab Interpret 04/13/20 07:42 HIV p24 Antibody Non-Reactive (Non-Reactive) 04/13/20 07:42 HIV-2 Antibody Non-Reactive (Non-Reactive) 04/13/20 07:42 HIV P24 Antigen Non-Reactive (Non-Reactive) 04/13/20 07:42 Vital Signs Temp 98.2 F 04/21/20 00:47 Pulse 71 04/21/20 00:47 Resp 16 04/21/20 00:47 BP 104/68 04/21/20 00:47 Pulse Ox 98 04/20/20 06:08 Intake & Output 04/20/20 04/21/20 04/21/20 18:59 06:59 18:59 Weight 76.6 kg Patient Condition at Discharge: Stable Plan - Discharge Summary New Discharge Prescriptions: New LORazepam [Ativan] 0.5 mg PO QID PRN 14 Days tab PRN Reason: restlessness/akithesia Methadone [Dolophine] 40 mg PO DAILY tab Nicotine 14Mg/24Hr Patch [Habitrol] 1 patch TRANSDERM DAILY 30 Days patch Propranolol [Inderal] 20 mg PO BID PRN 30 Days tab PRN Reason: restlessness or akithesia Nicotine Polacrilex [Nicorette] 2 mg BUCCAL Q4HR PRN 30 Days gum PRN Reason: Nicotine Cravings Sennosides-Docusate Sodium [Senokot-S] 2 each PO BID 30 Days tab QUEtiapine [SEROquel] 200 mg PO HS 30 Days tab buPROPion XL [Wellbutrin XL] 300 mg PO DAILY 30 Days tab.er.24h Discharge Medication List LORazepam [Ativan] 0.5 mg PO QID PRN 14 Days tab 04/21/20 [Rx] Methadone [Dolophine] 40 mg PO DAILY tab 04/21/20 [Rx] Nicotine 14Mg/24Hr Patch [Habitrol] 1 patch TRANSDERM DAILY 30 Days patch 04/21/20 [Rx] Nicotine Polacrilex [Nicorette] 2 mg BUCCAL Q4HR PRN 30 Days gum 04/21/20 [Rx] Propranolol [Inderal] 20 mg PO BID PRN 30 Days tab 04/21/20 [Rx] QUEtiapine [SEROquel] 200 mg PO HS 30 Days tab 04/21/20 [Rx] Sennosides-Docusate Sodium [Senokot-S] 2 each PO BID 30 Days tab 04/21/20 [Rx] buPROPion XL [Wellbutrin XL] 300 mg PO DAILY 30 Days tab.er.24h 04/21/20 [Rx] Follow up Appointment(s)/Referral(s): [facility] [Outside] - 04/22/20 9:45 am None,Stated [Primary Care Provider] - 1-2 days Activity/Diet/Wound Care/Special Instructions: Activity and diet as tolerated. Avoid the use of street drugs and alcohol. Take all medications as prescribed. When you are in need of refills on your medications please contact your medical provider and/or outpatient psychiatrist to have this done. Please go to scheduled outpatient appointment for aftercare t reatment. If symptoms return or become worse, call the crisis line at and/or go to the nearest emergency room for evaluation. Discharge Disposition: HOME SELF-CARE
== END 2020-04-21 11:30 | disposition home or self-care (01) | DRG 885 ==
LOC: EC 17:38 → 3MHU 21:40
PROVIDERS: ADMIT Psychiatry & Neurology Psychiatry; ATTEND Psychiatry & Neurology Psychiatry
DX: F25.9 Schizoaffective disorder, unspecified (principal); S22.31XA Fracture of one rib, right side, initial encounter for closed fracture; Z59.0 Homelessness; B19.20 Unspecified viral hepatitis C without hepatic coma; F11.10 Opioid abuse, uncomplicated; F15.10 Other stimulant abuse, uncomplicated; F31.9 Bipolar disorder, unspecified; G47.00 Insomnia, unspecified; F41.9 Anxiety disorder, unspecified; F90.9 Attention-deficit hyperactivity disorder, unspecified type; R07.81 Pleurodynia; R45.87 Impulsiveness; F17.200 Nicotine dependence, unspecified, uncomplicated; Z71.51 Drug abuse counseling and surveillance of drug abuser; Z71.41 Alcohol abuse counseling and surveillance of alcoholic; Z87.442 Personal history of urinary calculi; Z88.8 Allergy status to other drugs, medicaments and biological substances
CPT/HCPCS: 71045; 80053; 80061; 80306; 82075; 82550; 83036; 84443; 85025; 87390; 93005; 96372; 99285

== ENCOUNTER 2020-05-15 06:26 | Inpatient (IN) | payer MEDICAID, OTHER ==
--- NOTE | 2020-05-15 06:47 | ED ---
Psych HPI - General Chief Complaint: Psychiatric Symptoms Stated Complaint: mental health Time Seen by Provider: 05/15/20 06:33 Source: patient Mode of arrival: ambulatory - History of Present Illness Initial Comments: 35yo male presenting to the ER for relapse, suicidal ideations. Pt states he was here around April 15 admitted and discharge to rehabilitation facility, he states that he missed first appointment and had to thus had to go to a different facility. He states he was switched to suboxone off methadone, and left shortly after the admission relapsing. Patient states that doing IV drugs is not that fun. Patient presents today because he is feeling depressed over the addition and has had fleeting (on and off) suicidal thoughts. Patient has no additional complaints. Denies homicidal ideations. Patient denies any recent fever, chills, shortness of breath, chest pain, back pain, abdominal pain, nausea or vomiting, numbness or tingling, dysuria or hematuria, constipation or diarrhea, headaches or visual changes, or any other complaints. - Related Data Home Medications Medication Instructions Recorded Confirmed Sennosides-Docusate Sodium 2 tab PO BID 05/15/20 05/15/20 [Senokot-S] Previous Rx's Medication Instructions Recorded LORazepam [Ativan] 0.5 mg PO QID PRN 14 Days tab 04/21/20 Methadone [Dolophine] 40 mg PO DAILY tab 04/21/20 Nicotine 14Mg/24Hr Patch [Habitrol] 1 patch TRANSDERM DAILY 30 Days 04/21/20 patch Nicotine Polacrilex [Nicorette] 2 mg BUCCAL Q4HR PRN 30 Days gum 04/21/20 Paliperidone Palmitate [Invega 117 mg IM QMONTHLY #1 syr 04/21/20 Sustenna] Propranolol [Inderal] 20 mg PO BID PRN 30 Days tab 04/21/20 QUEtiapine [SEROquel] 200 mg PO HS 30 Days tab 04/21/20 buPROPion XL [Wellbutrin XL] 300 mg PO DAILY 30 Days tab.er.24h 04/21/20 Allergies Allergy/AdvReac Type Severity Reaction Status Date / Time haloperidol Allergy Unknown Verified 05/15/20 08:35 Review of Systems ROS Statement: Those systems with pertinent positive or pertinent negative responses have been documented in the HPI. ROS Other: All systems not noted in ROS Statement are negative. Past Medical History Additional Past Medical History / Comment(s): HEPATITIS C, kidney stone History of Any Multi-Drug Resistant Organisms: None Reported Past Surgical History: No Surgical Hx Reported Past Anesthesia/Blood Transfusion Reactions: No Reported Reaction Past Psychological History: ADD/ADHD, Anxiety, Bipolar, Schizoaffective Disorder Smoking Status: Current every day smoker Past Alcohol Use History: Rare Past Drug Use History: Cocaine, Heroin, Marijuana, Methamphetamine, Prescription Drug Abuse - Past Family History family Family Medical History: No Reported History General Exam - General Exam Comments Initial Comments: General: The patient is awake and alert, in no distress, and does not appear acutely ill. Eye: Pupils are equal, round and reactive to light, extra-ocular movements are intact. No nystagmus. There is normal conjunctiva bilaterally. No signs of icterus. Ears, nose, mouth and throat: There are moist mucous membranes and no oral lesions. Neck: The neck is supple, there is no tenderness or JVD. Cardiovascular: There is a regular rate and rhythm. No murmur, rub or gallop is appreciated. Respiratory: Lungs are clear to auscultation, respirations are non-labored, breath sounds are equal. No wheezes, stridor, rales, or rhonchi. Gastrointestinal: Soft, non-distended, non-tender abdomen without masses or organomegaly noted. There is no rebound or guarding present. Musculoskeletal: Normal ROM, no tenderness. Strength 5/5. Sensation intact. Pulses equal bilaterally 2+. Neurological: A&O x 3. CN II-XII intact grossly, There are no obvious motor or sensory deficits. Coordination appears grossly intact. Speech is normal. Skin: Skin is warm and dry and no rashes or lesions are noted. Psychiatric: Cooperative, appropriate mood & affect, normal judgment. Limitations: no limitations Course Vital Signs 05/15/20 06:31 Temperature 97.5 F L Pulse Rate 90 Respiratory 18 Rate Blood Pressure 149/86 O2 Sat by Pulse 99 Oximetry Medical Decision Making - Medical Decision Making Evaluated, and medically cleared at 0648. EPS aware at that time notified by JESSICA Pichardo. EPS evaluated patient--pt has court order for medication compliance and has not been compliant with the psychiatric mediations and thus will be admitted for EPS evaluation in patient, patient states he will come in voluntarily. - Lab Data Lab Results 10/01/20 Range/Units 06:47 Urine Color Yellow Urine Appearance Clear (Clear) Urine pH 7.0 (5.0-8.0) Ur Specific Morral 1.022 (1.001-1.035) Urine Protein Trace H (Negative) Urine Glucose (UA) Negative (Negative) Urine Ketones Negative (Negative) Urine Blood Negative (Negative) Urine Nitrite Negative (Negative) Urine Bilirubin Negative (Negative) Urine Urobilinogen <2.0 (<2.0) mg/dL Ur Leukocyte Esterase Negative (Negative) Urine Opiates Screen Not Detected (NotDetected) Ur Oxycodone Screen Not Detected (NotDetected) Urine Methadone Screen Not Detected (NotDetected) Ur Propoxyphene Screen Not Detected (NotDetected) Ur Barbiturates Screen Not Detected (NotDetected) U Tricyclic Antidepress Not Detected (NotDetected) Ur Phencyclidine Scrn Not Detected (NotDetected) Ur Amphetamines Screen Detected H (NotDetected) U Methamphetamines Scrn Detected H (NotDetected) U Benzodiazepines Scrn Not Detected (NotDetected) Urine Cocaine Screen Detected H (NotDetected) U Marijuana (THC) Screen Not Detected (NotDetected) Disposition Clinical Impression: Suicidal ideation, Noncompliance with medications Disposition: TRANSFER TO PSYCH HOSP/UNIT Condition: Stable Is patient prescribed a controlled substance at d/c from ED?: No Referrals: None,Stated [Primary Care Provider] - 1-2 days Time of Disposition: 09:28
[2020-05-15 07:00] LABS: Appearance,Urine Clear (Clear); Bilirubin,Urine Negative (Negative); Blood,Urine Negative (Negative); Color,Urine Yellow; Glucose,Urine (UA) Negative (Negative); Ketones,Urine Negative (Negative); Leukocyte Esterase,Urine Negative (Negative); Nitrite,Urine Negative (Negative); Protein,Urine Trace (Negative); Specific Gravity,Urine 1.022 (1.001-1.035); Urobilinogen,Urine <2.0 mg/dL (<2.0)
[2020-05-15 07:12] LABS: Amphetamine Screen,Urine Detected (NotDetected); Barbiturate Screen,Urine Not Detected (NotDetected); Benzodiazepines Screen,Urine Not Detected (NotDetected); Cocaine Screen,Urine Detected (NotDetected); Methadone Screen, Urine Not Detected (NotDetected); Opiate Screen,Urine Not Detected (NotDetected); Oxycodone Screen, Urine Not Detected (NotDetected); Phencyclidine Screen,Urine Not Detected (NotDetected); Tricyclic Antidepressant,Urine Not Detected (NotDetected); Urn Cannabinoid Scrn Not Detected (NotDetected)
[2020-05-15] MEDS ORDERED: ZIPRASIDONE 20 MG VIAL IM PRN (10:39)
[2020-05-15] MEDS ORDERED: MAGNESIUM HYDROXIDE 2,400 MG/10 ML CUP PO PRN (10:39)
[2020-05-15] MEDS ORDERED: PROPRANOLOL 20 MG TAB PO PRN (10:43)
[2020-05-15] MEDS ORDERED: hydrOXYzine pamoate 25 MG CAP PO PRN (10:47)
[2020-05-15] MEDS: buPROPion XL 150 MG TAB.ER.24H PO SCH (11:06)
[2020-05-15] MEDS: SENNOSIDES-DOCUSATE SODIUM 1 EACH TAB PO SCH ×2 (11:07→21:04)
[2020-05-15] MEDS: ACETAMINOPHEN TAB 325 MG TAB PO PRN (11:15)
[2020-05-15] MEDS: NICOTINE POLACRILEX 2 MG GUM BUCCAL PRN ×2 (11:15→21:06)
--- NOTE | 2020-05-15 12:00 | P.HP ---
Psychiatric H&P - . H&P Date: 05/15/20 History & Physical: Allergies Allergy/AdvReac Type Severity Reaction Status Date / Time haloperidol Allergy Unknown Verified 05/15/20 08:35 Vital Signs Temp 97.5 F L 05/15/20 06:31 Pulse 77 05/15/20 09:43 Resp 18 05/15/20 09:43 BP 136/88 05/15/20 09:43 Pulse Ox 97 05/15/20 09:43 Intake & Output 05/14/20 05/15/20 05/15/20 18:59 06:59 18:59 Weight 74.843 kg Laboratory Last Values Urine Color Yellow 05/15/20 06:47 Urine Appearance Clear (Clear) 05/15/20 06:47 Urine pH 7.0 (5.0-8.0) 05/15/20 06:47 Ur Specific [place] 1.022 (1.001-1.035) 05/15/20 06:47 Urine Protein Trace (Negative) H 05/15/20 06:47 Urine Glucose (UA) Negative (Negative) 05/15/20 06:47 Urine Ketones Negative (Negative) 05/15/20 06:47 Urine Blood Negative (Negative) 05/15/20 06:47 Urine Nitrite Negative (Negative) 05/15/20 06:47 Urine Bilirubin Negative (Negative) 05/15/20 06:47 Urine Urobilinogen <2.0 mg/dL (<2.0) 05/15/20 06:47 Ur Leukocyte Esterase Negative (Negative) 05/15/20 06:47 Urine Opiates Screen Not Detected (NotDetected) 05/15/20 06:47 Ur Oxycodone Screen Not Detected (NotDetected) 05/15/20 06:47 Urine Methadone Screen Not Detected (NotDetected) 05/15/20 06:47 Ur Propoxyphene Screen Not Detected (NotDetected) 05/15/20 06:47 Ur Barbiturates Screen Not Detected (NotDetected) 05/15/20 06:47 U Tricyclic Antidepress Not Detected (NotDetected) 05/15/20 06:47 Ur Phencyclidine Scrn Not Detected (NotDetected) 05/15/20 06:47 Ur Amphetamines Screen Detected (NotDetected) H 05/15/20 06:47 U Methamphetamines Scrn Detected (NotDetected) H 05/15/20 06:47 U Benzodiazepines Scrn Not Detected (NotDetected) 05/15/20 06:47 Urine Cocaine Screen Detected (NotDetected) H 05/15/20 06:47 U Marijuana (THC) Screen Not Detected (NotDetected) 05/15/20 06:47 05/15/20 11:26 IDENTIFYING DATA: Patient is a 34-year-old male with a history of schizoaffective disorder and polysubstance abuse who is currently homeless, living between friends and his parents house and recently left [facility]. HPI: Patient is a 35-year-old male presenting to the emergency department for mental health evaluation. Patient claimed according to ER reports that he relapsed on drugs and was feeling suicidal and depressed. Patient had claimed according to ER report that he was discharged from the psychiatric unit in early April and went to rehab and missed his first appointment then ended up at [facility]. He claims that he was switched off of methadone and onto Suboxone and claims that he relapsed shortly after. Patient's UDS is positive for methamphetamine and cocaine. Patient admitted to be noncompliant with his medications. Patient was due for his Invega Sustenna 117 mg injection on 05/12/2020. Patient is currently on an active treatment order from his last admission. Patient was agreeable to speak to writer editor in the office today. He appeared to be disheveled in appearance however was appropriate with writer editor. He states that he is feeling depressed and claims that he relapsed back on drugs and claims that "it's the same shit as last time". Patient claims that he did not go do [place] after he was discharged and states that he "got high and blew my ride off". He claims that he managed to get into [facility] shortly after and claims that he left [facility] after for 5 days and stayed in [place] "getting high every day". He claims that he return back to [facility] shortly thereafter and then left once again and resumed using drugs including heroin and methamphetamine and cocaine and marijuana. He states that he was able to live with his parents briefly and also stayed with a "girl in [place]". He states that he was having a problematic relationship with her and came back to the hospital as he is feeling depressed and suicidal. He states that the last use of Suboxone was approximately 3 days ago and claims that he is not having opiate withdrawal including stomach cramps, restlessness nausea and anxiety. Patient was agreeable to start back on methadone. He claims that he is continuing to feel depressed has poor sleep at night. He denies any auditory hallucinations at this time or visual hallucinations. He did not endorse any paranoia or delusions. He states that he is not suicidal or homicidal ideations intent or plan. Patient is using cigarettes and recreational drugs as noted above. PAST PSYCHIATRIC HISTORY: Patient states that he has a history of schizoaffective disorder with multiple hospitalizations. He also claims to have a bad case of ADHD although it looks like what he is describing is more akathisia or perhaps some tardive dyskinesia. Patient was last admitted to the mental health unit in early April 2020. Patient stopped following up at [facility]. He is currently on an active treatment order. Patient was transitioned onto Invega Sustenna long-acting injection to end chair compliance. Patient denies any previous history of suicide attempts. PMH: Hepatitis C, kidney stone ALLERGIES: as per EMR CHEMICAL DEPENDENCY HISTORY: In addition to using any "shit" he can get his hands on he also smokes daily FAMILY PSYCHIATRIC/SUBSTANCE USE HISTORY: denies SOCIAL HISTORY: Patient was born and raised in [place] the patient is a second of 3 children born to his parents with older sister and a brother he says that his parents are alive and nobody else struggles with psychiatric problems. He claims that he "moved around all over". He claims that he is single and was previously in senior care and got out on October 10 2019 and was charged with breaking and entering. He currently collects Social Security. He finished high school and about a year of college when he dropped out no history no work he says he shares a room with someone else MENTAL STATUS EXAM: General Appearance: Patient appears to be older than stated age is alert, evasive at times. Poor hygiene and grooming wearing hospital gown. Behavior: Patient is seated without any agitated behavior. Speech: Patient's speech is fluent and nonpressured. Mood/Affect: Patient reports their mood is "depressed", affect is incongruent and constricted. Suicidality/Homicidality: Patient denies having any homicidal ideation intent or plan. Denies any suicidal ideations intent or plan Perceptions: Denies any auditory or visual hallucinations. Though content/process: Patient is evasive, manipulative. Logical and goal oriented. No delusions or paranoia. Memory and concentration: Patient is alert and oriented 3, fair tension span. He Can spell "WORLD" backwards. Judgment and insight: poor/impulsive STRENGTHS/WEAKNESSES: strength is that patient is resilient. Weakness is that patient has poor judgment and is impulsive INTELLECT: average IMPRESSIONS: Schizoaffective disorder Opioid use disorder, on agonist therapy Cocaine abuse Methamphetamine abuse Cannabis use disorder Nicotine dependence PLAN: -Patient is admitted under voluntary status to MHU for stabilization of psychiatric symptoms and safety. Patient has signed adult voluntary form and medication consent and is placed in patient's chart. Patient is currently on active treatment order. -Medications : Will give Invega Sustenna 117 mg IM injection today, this is to be given every monthly. Resumed Ativan 1 mg 3 times a day when necessary for akathisia/restlessness. Continue with Wellbutrin 150 mg daily for mood. Continue with Seroquel 100 mg daily at bedtime for insomnia/psychosis. Continue with propranolol 20 mg twice a day when necessary for restlessness/akathisia. -Ordered EKG to check daily QTc interval. Patient is agreeable to be started back on methadone for opioid dependence/withdrawal. MAPS was checked and did not show any recent Suboxone prescriptions being filled, last Suboxone filled was in 11/14/2019. -Ativan and Geodon PRN for agitation/aggression -Patient was counselled on substance abuse however patient was superficial about receiving treatment -Patient was informed of the risks, benefits and side effects of the medication and patient verbally consented to taking the medications. Patient signed med consent form and was placed in chart. -Internal Medicine consult to perform medical evaluation and physical. -NRT -nicotine gum - on board for discharge planning. Encourage patient to participate in groups to work on coping skills. Will continue to work with patient on substance use treatment upon discharge. 05/15/20 11:58
[2020-05-15] MEDS: LORazepam 1 MG TAB PO PRN ×2 (13:49→21:06)
[2020-05-15] MEDS: METHADONE 10 MG TAB PO SCH (14:56)
[2020-05-15] MEDS ORDERED: QUEtiapine 100 MG TAB PO SCH (21:00)
--- NOTE | 2020-05-15 23:47 | P.MDCNMH ---
History of Present Illness H&P Date: 05/15/20 Chief Complaint: medical evaluation 35 year old male with heptitis C, schizophrenia patient comes in due to suicidal ideation , non compliance and relapse of symptoms . he has long history of mental health problems. he also admits to drug abuse. with crystal meth, cocaine. patient currently denies any medical compliants except for chronic numbness over the anterior right thigh off/on. denies any injuries. he denies any muscle weakness. patient denies any fever, chills, chest pain , trouble breathing, abd pain ,nausea or vomiting. Review of Systems Pertinent positives and negatives as discussed in HPI, a complete review of systems was performed and all other systems are negative. Past Medical History Additional Past Medical History / Comment(s): HEPATITIS C, kidney stone History of Any Multi-Drug Resistant Organisms: None Reported Past Surgical History: No Surgical Hx Reported Past Anesthesia/Blood Transfusion Reactions: No Reported Reaction Past Psychological History: ADD/ADHD, Anxiety, Bipolar, Schizoaffective Disorder Smoking Status: Current every day smoker Past Alcohol Use History: Rare Past Drug Use History: Cocaine, Heroin, Marijuana, Methamphetamine, Prescription Drug Abuse - Past Family History family Family Medical History: No Reported History Medications and Allergies Home Medications Medication Instructions Recorded Confirmed Type LORazepam [Ativan] 0.5 mg PO QID PRN 14 Days tab 04/21/20 05/15/20 Rx Methadone [Dolophine] 40 mg PO DAILY tab 04/21/20 05/15/20 Rx Nicotine 14Mg/24Hr Patch [Habitrol] 1 patch TRANSDERM DAILY 30 Days 04/21/20 05/15/20 Rx patch Nicotine Polacrilex [Nicorette] 2 mg BUCCAL Q4HR PRN 30 Days gum 04/21/20 05/15/20 Rx Paliperidone Palmitate [Invega 117 mg IM QMONTHLY #1 syr 04/21/20 05/15/20 Rx Sustenna] Propranolol [Inderal] 20 mg PO BID PRN 30 Days tab 04/21/20 05/15/20 Rx QUEtiapine [SEROquel] 200 mg PO HS 30 Days tab 04/21/20 05/15/20 Rx buPROPion XL [Wellbutrin XL] 300 mg PO DAILY 30 Days tab.er.24h 04/21/20 05/15/20 Rx Sennosides-Docusate Sodium 2 tab PO BID 05/15/20 05/15/20 History [Senokot-S] Allergies Allergy/AdvReac Type Severity Reaction Status Date / Time haloperidol Allergy Unknown Verified 05/15/20 08:35 Physical Exam Vitals: Vital Signs Temp Pulse Pulse Resp BP BP Pulse Ox 05/15/20 11:32 98.5 F 80 16 126/76 99 05/15/20 09:43 77 18 136/88 97 05/15/20 06:31 97.5 F L 90 18 149/86 99 Intake and Output 05/15/20 05/15/20 05/16/20 14:59 22:59 06:59 Other: Weight 74 kg General: non toxic, no distress, appears at stated age, normal weight Derm: no unusual rashes/lesions no unusual ecchymoses, warm, dry Head: atraumatic, normocephalic, symmetric Eyes: EOMI, no lid lag, anicteric sclera, pupils equal round reactive to light ENT: Nose and ears atraumatic, no thrush, no pharyngeal erythema Neck: No thyromegaly, no cervical lymphadenopathy, trachea midline, supple Mouth: no lip lesion, mucus membranes moist Cardiovascular: S1S2 reg, no murmur, positive posterior tibial pulse bilateral, no edema, capillary refill immediate Lungs: CTA bilateral, no rhonchi, no rales , no accessory muscle use Abdominal: soft, nontender to palpation, no guarding, no appreciable organomegaly, normal bowel sounds Ext: no gross muscle atrophy, muscle strength 5 out of 5 in all 4 extremities grossly, no contractures, Neuro: CN II-XI grossly intact, light touch intact all 4 extremities, finger to nose within normal limits, Psych: Alert, oriented, manic affect Cranial Nerve Examination - Cranial Nerves Cranial Nerve II- Optic: Intact Cranial Nerve III- Oculomotor: Intact Cranial Nerve IV- Trochlear: Intact Cranial Nerve V- Trigeminal: Intact Cranial Nerve - Abducens: Intact Cranial Nerve VII- Facial: Intact Cranial Nerve VIII- Auditory: Intact Cranial Nerve IX- Glossopharyngeal: Intact Cranial Nerve X- Vagus: Intact Cranial Nerve XI- Accessory: Intact Cranial Nerve XII- Hypoglossal: Intact Results Labs: Abnormal Lab Results - Last 24 Hours (Table) 05/15/20 Range/Units 06:47 Urine Protein Trace H (Negative) Ur Amphetamines Screen Detected H (NotDetected) U Methamphetamines Scrn Detected H (NotDetected) Urine Cocaine Screen Detected H (NotDetected) Assessment and Plan Assessment: suicidal ideation schizophrenia management per psych polysubstance abuse counseled to quit drug of abuse patient hoping to follow up with PCP to be established on methadone or subaxone Hepatitis C consider OP follow up to establish treatment chronic numbness over small segment of anterior right thigh consider OP follow up with neurology low risk of DVT, patient ambulatory Thank you for allowing us to participate in the care of this patient. We will follow peripherally. Do not hesitate to contact us with questions. Someone can be reached from the [facility] hospitalist group at all hours of the day at [phone].
[2020-05-16] MEDS: SENNOSIDES-DOCUSATE SODIUM 1 EACH TAB PO SCH ×2 (07:59→20:42)
[2020-05-16] MEDS: METHADONE 10 MG TAB PO SCH (08:00)
[2020-05-16] MEDS: buPROPion XL 150 MG TAB.ER.24H PO SCH (08:00)
[2020-05-16 09:06] LABS: Basophils # (A) 0.1 k/uL (0-0.2); Basophils % (A) 1 %; Eosinophils # (A) 0.2 k/uL (0-0.7); Eosinophils % (A) 4 %; HCT 42.2 % (39.0-53.0); HGB 14.3 gm/dL (13.0-17.5); Lymphocytes # (A) 2.8 k/uL (1.0-4.8); Lymphocytes % (A) 49 %; MCH 29.9 pg (25.0-35.0); MCHC 33.9 g/dL (31.0-37.0); MCV 88.3 fL (80.0-100.0); Mean Platelet Volume 6.8; Monocytes # (A) 0.2 k/uL (0-1.0); Monocytes % (A) 4 %; Neutrophils # (A) 2.4 k/uL (1.3-7.7); Neutrophils % (A) 40 %; Platelet Count 276 k/uL (150-450); RBC 4.78 m/uL (4.30-5.90); RDW 14.8 % (11.5-15.5); WBC 5.9 k/uL (3.8-10.6)
[2020-05-16] MEDS: LORazepam 1 MG TAB PO PRN ×2 (09:10→17:48)
[2020-05-16] MEDS: NICOTINE POLACRILEX 2 MG GUM BUCCAL PRN ×2 (09:10→14:24)
[2020-05-16 09:16] LABS: ALT 15 U/L (4-49); AST 18 U/L (17-59); African American GFR (CKD) >90 (>60 ml/min/1.73 sqM); Albumin 4.2 g/dL (3.5-5.0); Alkaline Phosphatase 71 U/L (38-126); Anion Gap 7 mmol/L; Blood Urea Nitrogen 20 mg/dL (9-20); Calcium 9.1 mg/dL (8.4-10.2); Carbon Dioxide 29 mmol/L (22-30); Chloride 99 mmol/L (98-107); Cholesterol 198 mg/dL (<200); Glucose 111 mg/dL (74-99); HDL Cholesterol 55 mg/dL (40-60); LDL Cholesterol,Calculated 120 mg/dL (0-99); Non-African American GFR(CKD) >90 (>60 ml/min/1.73 sqM); Potassium 4.4 mmol/L (3.5-5.1); Sodium 135 mmol/L (137-145); Total Bilirubin 0.5 mg/dL (0.2-1.3); Total Protein 7.4 g/dL (6.3-8.2); Triglycerides 116 mg/dL (<150)
--- NOTE | 2020-05-16 10:30 | P.PN ---
Progress Note - Text Progress Note Date: 05/16/20 Interval History: Patient was seen sitting in a group this morning and was directable and agreea ble to speak with racebook writer in the office. Patient claims that he is doing mildly better today however continues to be preoccupied with his medications. He continues to ask for stimulants and medications for his ADHD. He continues to minimize his drug use. He states that he would like to have his methadone increased to 40 mg for tomorrow and over the weekend. He claims that his mood has been improving on the current medications. He also states that the propranolol isn't helping as much with his restlessness and was asking to have the dose increased. He claims that he had difficulties staying asleep last night and asked for a Geodon injection. Claims that he has been trying to go to group. He states that he does not feel like going to rehab upon discharge and wants to stay with a friend. At this time patient denies any suicidal or homical ideations, intent or plan. Patient denies any auditory, visual hallucinations and denies any paranoia or delusions. Mental Status Exam: General Appearance: Patient appears to be older than stated age is alert, comes to cooperate today. Poor hygiene and grooming wearing hospital gown. Behavior: Patient is seated without any agitated behavior. Speech: Patient's speech is fluent and nonpressured. Rambles. Mood/Affect: Patient reports their mood is "better", affect is incongruent and constricted. Suicidality/Homicidality: Patient denies having any homicidal ideation intent or plan. Denies any suicidal ideations intent or plan Perceptions: Denies any auditory or visual hallucinations. Though content/process: Patient rambles. Tangential/circumstantial. Preoccupied with his medications and symptoms. Logical and goal oriented. No delusions or paranoia. Memory and concentration: Patient is alert and oriented 3, fair tension span. Judgment and insight: poor/impulsive, improving mildly Assessment Schizoaffective disorder Opioid use disorder, on agonist therapy Cocaine abuse Methamphetamine abuse Cannabis use disorder Nicotine dependence Plan: -Patient continues to meet criteria for inpatient psychiatric admission for symptom stabilization and safety. Patient has signed adult voluntary form and medication consent and was placed in patient's chart. Patient is also on a active treatment order. -Medications: We'll be communicating with [facility] liaison to have Invega Sustenna 117 mg IM injection given to patient today. This is his monthly maintenance dose. Continue with Ativan 1 mg 3 times a day when necessary for akathisia/restlessness. Continue with Wellbutrin 150 mg daily for mood. Increased Seroquel 150 mg daily at bedtime for insomnia/psychosis. Increased propranolol 30 mg twice a day when necessary for restlessness/akathisia, with holding parameters. -Reviewed patient's EKG. MAPS was checked and did not show any recent Suboxone prescriptions being filled, last Suboxone filled was in 11/14/2019. Increased methadone to 40 mg daily for opiate dependence/withdrawal. -When necessary Ativan and Geodon for agitation/aggression. -NRT -nicotine gum. -SW on board for discharge planning. Encouraged the patient to participate in milieu. Will continue to work with patient on substance use treatment upon dis charge.
[2020-05-16] MEDS: PALIPERIDONE 3 MG TAB.ER.24 PO SCH (11:44)
[2020-05-16] MEDS ORDERED: PALIPERIDONE IM 117 MG/0.75 ML ML (PT OWN) IM ONE (12:00)
[2020-05-16] MEDS: PROPRANOLOL 10 MG TAB PO PRN (15:35)
[2020-05-16 16:33] LABS: Hemoglobin A1C 4.7 % (4.0-6.0)
[2020-05-16] MEDS: QUEtiapine 100 MG TAB PO SCH (20:43)
[2020-05-17] MEDS: METHADONE 10 MG TAB PO SCH (10:04)
[2020-05-17] MEDS: PALIPERIDONE 3 MG TAB.ER.24 PO SCH (10:05)
[2020-05-17] MEDS: SENNOSIDES-DOCUSATE SODIUM 1 EACH TAB PO SCH ×2 (10:05→20:35)
[2020-05-17] MEDS: buPROPion XL 150 MG TAB.ER.24H PO SCH (10:05)
[2020-05-17] MEDS: NICOTINE POLACRILEX 2 MG GUM BUCCAL PRN (13:45)
[2020-05-17] MEDS: LORazepam 1 MG TAB PO PRN (18:33)
[2020-05-17] MEDS: QUEtiapine 100 MG TAB PO SCH (20:35)
--- NOTE | 2020-05-17 20:37 | PN ---
PROGRESS NOTE DATE OF SERVICE: 05/17/2020 CHIEF COMPLAINT: The patient was depressed with suicidal thinking. He had relapsed to drugs. He had poor followup with outpatient mental health/substance abuse services. INTERVAL HISTORY: The patient has been having ups and downs in his mood and function. He attended groups yesterday. I refer the reader to the group note, all of the leisure education group for details regarding how he presented and his involvement. He comes out in the day area. He will interact some with others. He can be intense at times. He said that he slept well last night. Today he has been up. He has spent some time in his room and noted that he was sleeping just prior to coming to talk with me in the early afternoon. He talked at length about plan towards relapse prevention. He says that one of his plans will be to try to get into school, where he would have something to focus on. His interests would be in the business area. He said he has talked to an ex-girlfriend who is encouraging him to stay with her, so that he would have some support. The patient acknowledges that he has a history of voices though says that has been fairly quiet. It does appear that he has only limited insight in regard to substance use issues. He tolerates his psychotropic medications. MENTAL STATUS: Patient sat with some restlessness. It is noted that he had slurred speech and he says that was due to his just waking up from sleep, though he had been out in the [place] for a brief period of time before coming into the office. He answered questions with brief responses. He did not say a lot. His affect was blunted. His mood was reserved. It was difficult to say how distressed he might be. There was no immediate evidence for thought disorder. He denied thoughts of harm to self. Cognition was clear. ASSESSMENT: I will continue the current diagnosis and treatment plan. We will continue to engage the patient in individual and group therapeutic activities. I will continue psychotropic medications the same including Wellbutrin 150 mg a day, Invega 3 mg a day and Seroquel 150 mg a day. He has received Invega Sustenna 117 mg IM. I reviewed medication issues with the patient. I discussed indications, potential side effects, time course for treatment, metabolic concerns relating to his antipsychotics, as well as movement disorder issues. We discussed the substance withdrawal issues. We will focus on stabilization and discharge planning. MMODL / IJN: [id number] /
[2020-05-17] MEDS: MAG HYDROX/AL HYDROX/SIMETH 30 ML CUP PO PRN (20:38)
[2020-05-18] MEDS: SENNOSIDES-DOCUSATE SODIUM 1 EACH TAB PO SCH ×2 (08:09→20:58)
[2020-05-18] MEDS: buPROPion XL 150 MG TAB.ER.24H PO SCH (08:10)
[2020-05-18] MEDS: PALIPERIDONE 3 MG TAB.ER.24 PO SCH (08:10)
[2020-05-18] MEDS: METHADONE 10 MG TAB PO SCH (08:10)
[2020-05-18] MEDS: NICOTINE POLACRILEX 2 MG GUM BUCCAL PRN ×4 (08:36→21:40)
--- NOTE | 2020-05-18 09:52 | PN ---
PROGRESS NOTE DATE OF SERVICE: 05/18/2020. CHIEF COMPLAINT: The patient was depressed with suicidal thinking. He had relapsed to drugs. He had poor followup with outpatient mental health/substance abuse services. INTERVAL HISTORY: Patient has been doing fair. He had a quiet day yesterday. He comes out in the day area. He will interact some with others. He wonders about. He may attend a group, though that is pretty limited. He said he slept fairly well last night. Today, he has been up. He has good appetite. He will socialize some with others. He has not attended a group so far today. He talked about discharge planning issues. His main idea is to get back to school, which he says will help him get a more stable life situation. He notes that he has been using drugs since teenage years, though acknowledges that drugs in the present day relate quite a bit to the crowd that he hangs around. He said he has been living with various friends and has not had his own place to live for a few months. He notes that his mother is in a union that gives him the benefit of 2 years of college tuition covered. He says he is interested in nutrition and physical health and would look towards a program relating to health and exercise training. When I reviewed substance abuse issues with the patient. He notes that his longest period of sobriety have been in the range of 6-12 months, primarily when he has been in half-way. When he has not been in half-way he generally is using very consistently. Today, he says that he thinks his methadone dose needs to go higher. When we discussed long-term issues relating to methadone and the anticipation that once things are stable for him he would go off methadone and go through withdrawal. He did not seem to be too clear about the factors relating to that. He tolerates his psychotropic medications. He says that auditory hallucinations have pretty much abated. MENTAL STATUS EXAM: Patient gave fair eye contact. He was quite restless. He answered questions with brief responses. His thoughts were clear. His affect was somewhat constricted. His mood reserved he seemed somewhat distressed. There was no indication of thought disorder. Cognition was clear. It is noteworthy that the patient continued to have some slurred speech. At times, he would close his eyelids while he was talking. It appeared he may be having effects from methadone impacting these issues. ASSESSMENT: I will continue the current diagnosis and treatment plan. I will continue psychotropic medications the same. I reviewed withdrawal issues with the patient. We will focus on stabilization and discharge planning. MILDRED / SYLVIA: [id number] /
[2020-05-18] MEDS: PROPRANOLOL 10 MG TAB PO PRN (13:46)
[2020-05-18] MEDS: LORazepam 1 MG TAB PO PRN (13:46)
[2020-05-18] MEDS: QUEtiapine 100 MG TAB PO SCH (20:59)
[2020-05-19] MEDS: SENNOSIDES-DOCUSATE SODIUM 1 EACH TAB PO SCH ×2 (09:10→19:45)
[2020-05-19] MEDS: NICOTINE POLACRILEX 2 MG GUM BUCCAL PRN ×2 (09:10→18:37)
[2020-05-19] MEDS: METHADONE 10 MG TAB PO SCH (09:10)
[2020-05-19] MEDS: buPROPion XL 150 MG TAB.ER.24H PO SCH (09:10)
[2020-05-19] MEDS: PALIPERIDONE 3 MG TAB.ER.24 PO SCH (09:10)
--- NOTE | 2020-05-19 11:28 | P.PN ---
Progress Note - Text Progress Note Date: 05/19/20 Interval History: Patient was seen laying in bed this morning and was directable and agreeable to speak with technical report writer in the office. Patient claims that he is doing mildly better today. Patient was last focused on his medications today however continues to demonstrate chronically poor insight with his discharge planning. He claims that Dr. Rowe at [facility] will be able to prescribe him his Suboxone. He claims that he also lost his ID and won't be able to go back to [facility] for methadone dosing. He continues to minimize his drug use. He states that he would like to have his methadone increased to 40 mg for tomorrow and over the weekend. He claims that his mood has been improving on the current medications. He does claim that he is feeling more lethargic today and tired in the morning and asked for Seroquel to be decreased. Claims that he has been trying to go to group. He states that he does not feel like going to rehab upon discharge and wants to stay with a friend. At this time patient denies any suicidal or homical ideations, intent or plan. Patient denies any auditory, visual hallucinations and denies any paranoia or delusions. Mental Status Exam: General Appearance: Patient appears to be older than stated age is alert, comes to cooperate today. Poor hygiene and grooming wearing hospital gown. Behavior: Patient is seated without any agitated behavior. Speech: Patient's speech is fluent and nonpressured. Mood/Affect: Patient reports their mood is "ok", affect is congruent and constricted. Suicidality/Homicidality: Patient denies having any homicidal ideation intent or plan. Denies any suicidal ideations intent or plan Perceptions: Denies any auditory or visual hallucinations. Though content/process: Less preoccupied with his medications. Logical and goal oriented. No delusions or paranoia. Memory and concentration: Patient is alert and oriented 3, fair tension span. Judgment and insight: Chronically poor/impulsive, improving mildly Assessment Schizoaffective disorder Opioid use disorder, on agonist therapy Cocaine abuse Methamphetamine abuse Cannabis use disorder Nicotine dependence Plan: -Patient continues to meet criteria for inpatient psychiatric admission for symptom stabilization and safety. Patient has signed adult voluntary form and m edication consent and was placed in patient's chart. Patient is also on a active treatment order. -Medications: Patient was given Invega Sustenna 117 mg IM injection on 05/16/2020. This is his monthly maintenance dose and will be due for his next 117 injection on 06/13/2020. Continue with Ativan 1 mg 3 times a day when necessary for akathisia/restlessness. Continue with Wellbutrin 150 mg daily for mood. Decreased Seroquel 100 mg daily at bedtime for insomnia/psychosis. Continue with propranolol 30 mg twice a day when necessary for restlessness/akathisia, with holding parameters. -Reviewed patient's EKG. MAPS was checked and did not show any recent Suboxone prescriptions being filled, last Suboxone filled was in 11/14/2019. Continue with methadone to 40 mg daily for opiate dependence/withdrawal. -When necessary Ativan and Geodon for agitation/aggression. -NRT -nicotine gum. - on board for discharge planning. Encouraged the patient to participate in milieu. sanitation worker hosing machinery will attempt to call biomed today to see if patient would be eligible to continue dosing with them. [facility] will do intake on the unit tomorrow with patient and likely discharge tomorrow to his friend's house.
[2020-05-19 11:56] VITALS: BMI 23.0
[2020-05-19] MEDS: LORazepam 1 MG TAB PO PRN (14:05)
[2020-05-19] MEDS: MAG HYDROX/AL HYDROX/SIMETH 30 ML CUP PO PRN (19:45)
[2020-05-19] MEDS: ACETAMINOPHEN TAB 325 MG TAB PO PRN (19:46)
[2020-05-19] MEDS ORDERED: QUEtiapine 100 MG TAB PO SCH (21:00)
[2020-05-20] MEDS: MAG HYDROX/AL HYDROX/SIMETH 30 ML CUP PO PRN (00:25)
[2020-05-20 04:43] VITALS: RESP 16; TEMP 98
[2020-05-20] MEDS: SENNOSIDES-DOCUSATE SODIUM 1 EACH TAB PO SCH (07:58)
[2020-05-20] MEDS: METHADONE 10 MG TAB PO SCH (07:58)
[2020-05-20] MEDS: buPROPion XL 150 MG TAB.ER.24H PO SCH (07:58)
--- NOTE | 2020-05-20 09:20 | P.DS ---
Providers Date of admission: 05/15/20 10:03 Expected date of discharge: 05/20/20 Attending physician: Sae Vicente MD Consults: 05/15/20 10:39 Consult Physician Routine Consulting Provider: Mark Nicole Consult Reason/Comments: H&P and medical managment Do you want consulting provider notified?: Yes Primary care physician: Stated None - Discharge Diagnosis(es) (1) Schizoaffective disorder Current Visit: Yes Status: Acute Priority: High (2) Opioid use disorder Current Visit: Yes Status: Acute Priority: Medium (3) Cocaine abuse Current Visit: Yes Status: Acute Priority: Medium (4) Methamphetamine abuse Current Visit: Yes Status: Acute Priority: Medium (5) Cannabis use disorder, mild, abuse Current Visit: Yes Status: Acute Priority: Medium (6) Nicotine dependence Current Visit: Yes Status: Acute Priority: Low Hospital Course: Admission HPI: Admission was competed by sign writer letterer or painter "Patient is a 34-year-old male with a history of schizoaffective disorder and polysubstance abuse who is currently homeless, living between friends and his [facility] house and recently left [facility]. Patient is a 35-year-old male presenting to the emergency department for mental health evaluation. Patient claimed according to ER reports that he relapsed on drugs and was feeling suicidal and depressed. Patient had claimed according to ER report that he was discharged from the psychiatric unit in early April and went to rehab and missed his first appointment then ended up at [facility]. He claims that he was switched off of methadone and onto Suboxone and claims that he relapsed shortly after. Patient's UDS is positive for methamphetamine and cocaine. Patient admitted to be noncompliant with his medications. Patient was due for his Invega Sustenna 117 mg injection on 05/12/2020. Patient is currently on an active treatment order from his last admission. Patient was agreeable to speak to sign writer letterer or painter in the office today. He appeared to be disheveled in appearance however was appropriate with sign writer letterer or painter. He states that he is feeling depressed and claims that he relapsed back on drugs and claims that "it's the same shit as last time". Patient claims that he did not go do [place] after he was discharged and states that he "got high and blew my ride off". He claims that he managed to get into [facility] shortly after and claims that he left [facility] after for 5 days and stayed in [place] "getting high every day". He claims that he return back to [facility] shortly thereafter and then left once again and resumed using drugs including heroin and methamphetamine and cocaine and marijuana. He states that he was able to live with his parents briefly and also stayed with a "girl in [place]". He states that he was having a problematic relationship with her and came back to the hospital as he is feeling depressed and suicidal. He states that the last use of Suboxone was approximately 3 days ago and claims that he is not having opiate withdrawal including stomach cramps, restlessness nausea and anxiety. Patient was agreeable to start back on methadone. He claims that he is continuing to feel depressed has poor sleep at night. He denies any auditory hallucinations at this time or visual hallucinations. He did not endorse any paranoia or delusions. He states that he is not suicidal or homicidal ideations intent or plan. Patient is using cigarettes and recreational drugs as noted above." Hospital course: Upon admission to the unit patient was initially depressed and suicidal. Patient was however directable and agreeable to commence treatment. Patient was already on an active treatment order from his previous admission. Patient got along well with other patients on the unit and followed unit protocol. Patient was compliant with the medications throughout hospital course. Patient was started on Invega Sustenna 117 mg IM injection given on 05/16/2020 and will be due for his next monthly injection on 06/13/2020. Patient was also restarted back on Ativan when necessary for akathisia/restlessness. Patient was also restarted on Wellbutrin 150 mg daily for mood. Seroquel was also restarted at 100 mg nightly for insomnia/psychosis. Patient also had propranolol restarted and increased it to 30 mg twice a day when necessary for restlessness/akathisia. Patient was restarted back on methadone 40 mg daily for opioid dependence. EKG and MAPS were checked and did show any recent suboxone prescriptions filled since 11/14/2019. Patient spoke of his stressors and engaged in therapy both group and individual. Patient was also seen by medical team for history and physical exam. Throughout the course of the hospitalization patient gradually improved with regards to mood, anxiety, sleep and became future oriented with improvement in his insight and judgment. On the day of discharge patient denied any suicidal or homicidal ideations intent or plan denied any auditory or visual hallucinations. Patient endorsed wanting to live for his health and family. The patient denied any access to guns or weapons. Patient denied any paranoia and did not endorse any delusions. Patient does have a significant history of substance abuse and was counseled on abstaining from all substances including alcohol and marijuana. Patient was offered however declined inpatient substance- abuse rehab and wanted to continue to work with [facility] for substance treatment. Patient was also counseled on the medications and need for regular compliance and was encouraged to follow-up with their outpatient appointment for mental he alth and also for primary care. Mental status exam: General Appearance: Patient appears to be tall, thin stated age is alert, pleasant, and cooperative. Patient is in no acute distress and has improved hygiene and grooming Behavior: Patient is calmly seated without any agitated behavior. Speech: Patient's speech is fluent and nonpressured. Mood/Affect: Patient reports their mood is "better", affect is congruent and euthymic. Suicidality/Homicidality: Patient denies having any suicidal or homicidal ideation intent or plan. Perceptions: Patient denies any auditory or visual hallucinations. Though content/process: There is no evidence of any delusional thought content and thought process is linear and goal-directed. Memory and concentration: AOX3, grossly intact for the purposes of this session. Can spell "WORLD" backwards correctly. Judgment and insight: chronically poor, however has improved with guarded prognosis Impression: Schizoaffective disorder Opioid use disorder Cocaine abuse Methamphetamine abuse Cannabis use disorder Nicotine dependence Plan: -Continue with discharge today as patient has improved and stabilized psychiatrically and is not currently an imminent threat to himself and/or others. Patient will remain at chronically elevated risk for harm to self and/or others due to his impulsivity, poor insight and polysubstance abuse. -Continue medications: Continue with Seroquel 100 mg daily at bedtime for psychosis/insomnia. Patient will continue to receive Invega Sustenna cisterna 170 mg IM injection, last dose was given on 05/16/2020 and next dose to be given on 06/13/2020. Patient is currently on 2 antipsychotics as one was not able to fully control patient's symptoms. Continue with Wellbutrin 150 mg daily for mood. Continue with propranolol 30 mg twice a day when necessary for restlessness/akathisia. Also will prescribe patient a 10 day supply of Ativan 1 mg twice a day when necessary for akathisia/restlessness. -Patient was counseled on the need for medication compliance and appropriate follow-up at mental health and also primary care for medical issues. Patient verbalized understanding and agreed. -Social work to arrange for patient's discharge as he will be staying with his ex-girlfriend about her house and will be following up with [facility] for substance use treatment. Social work also to arrange for patients follow up appointments with [facility] for psychiatric care along with follow up with primary care provider. -Patient counseled on abstaining from recreational drugs and marijuana and alcohol. Was informed/educated on the adverse effects on their physical and mental health. Patient verbally agreed and understood. Patient was offered substance abuse treatment however declined at this time. -Patient was instructed to return to the hospital or seek immediate medical care if their psychiatric or medical symptoms do worsen or reoccur. Allergies Allergy/AdvReac Type Severity Reaction Status Date / Time haloperidol Allergy Unknown Verified 05/15/20 08:35 Laboratory Results WBC 5.9 k/uL (3.8-10.6) 05/16/20 08:32 RBC 4.78 m/uL (4.30-5.90) 05/16/20 08:32 Hgb 14.3 gm/dL (13.0-17.5) 05/16/20 08:32 Hct 42.2 % (39.0-53.0) 05/16/20 08:32 MCV 88.3 fL (80.0-100.0) 05/16/20 08:32 MCH 29.9 pg (25.0-35.0) 05/16/20 08:32 MCHC 33.9 g/dL (31.0-37.0) 05/16/20 08:32 RDW 14.8 % (11.5-15.5) 05/16/20 08:32 Plt Count 276 k/uL (150-450) 05/16/20 08:32 Neutrophils % 40 % 05/16/20 08:32 Lymphocytes % 49 % 05/16/20 08:32 Monocytes % 4 % 05/16/20 08:32 Eosinophils % 4 % 05/16/20 08:32 Basophils % 1 % 05/16/20 08:32 Neutrophils # 2.4 k/uL (1.3-7.7) 05/16/20 08:32 Lymphocytes # 2.8 k/uL (1.0-4.8) 05/16/20 08:32 Monocytes # 0.2 k/uL (0-1.0) 05/16/20 08:32 Eosinophils # 0.2 k/uL (0-0.7) 05/16/20 08:32 Basophils # 0.1 k/uL (0-0.2) 05/16/20 08:32 Sodium 135 mmol/L (137-145) L 05/16/20 08:32 Potassium 4.4 mmol/L (3.5-5.1) 05/16/20 08:32 Chloride 99 mmol/L (98-107) 05/16/20 08:32 Carbon Dioxide 29 mmol/L (22-30) 05/16/20 08:32 Anion Gap 7 mmol/L 05/16/20 08:32 BUN 20 mg/dL (9-20) 05/16/20 08:32 Creatinine 0.86 mg/dL (0.66-1.25) 05/16/20 08:32 Est GFR (CKD-EPI)AfAm >90 (>60 ml/min/1.73 sqM) 05/16/20 08:32 Est GFR (CKD-EPI)NonAf >90 (>60 ml/min/1.73 sqM) 05/16/20 08:32 Glucose 111 mg/dL (74-99) H 05/16/20 08:[address] Glu mg/dL 88 05/16/20 08:32 Hemoglobin A1c 4.7 % (4.0-6.0) 05/16/20 08:32 Calcium 9.1 mg/dL (8.4-10.2) 05/16/20 08:32 Total Bilirubin 0.5 mg/dL (0.2-1.3) 05/16/20 08:32 AST 18 U/L (17-59) 05/16/20 08:32 ALT 15 U/L (4-49) 05/16/20 08:32 Alkaline Phosphatase 71 U/L (38-126) 05/16/20 08:32 Total Protein 7.4 g/dL (6.3-8.2) 05/16/20 08:32 Albumin 4.2 g/dL (3.5-5.0) 05/16/20 08:32 Triglycerides 116 mg/dL (<150) 05/16/20 08:32 Cholesterol 198 mg/dL (<200) 05/16/20 08:32 LDL Cholesterol, Calc 120 mg/dL (0-99) H 05/16/20 08:32 HDL Cholesterol 55 mg/dL (40-60) 05/16/20 08:32 TSH 2.010 mIU/L (0.465-4.680) 05/16/20 08:32 Urine Color Yellow 05/15/20 06:47 Urine Appearance Clear (Clear) 05/15/20 06:47 Urine pH 7.0 (5.0-8.0) 05/15/20 06:47 Ur Specific [place] 1.022 (1.001-1.035) 05/15/20 06:47 Urine Protein Trace (Negative) H 05/15/20 06:47 Urine Glucose (UA) Negative (Negative) 05/15/20 06:47 Urine Ketones Negative (Negative) 05/15/20 06:47 Urine Blood Negative (Negative) 05/15/20 06:47 Urine Nitrite Negative (Negative) 05/15/20 06:47 Urine Bilirubin Negative (Negative) 05/15/20 06:47 Urine Urobilinogen <2.0 mg/dL (<2.0) 05/15/20 06:47 Ur Leukocyte Esterase Negative (Negative) 05/15/20 06:47 Urine Opiates Screen Not Detected (NotDetected) 05/15/20 06:47 Ur Oxycodone Screen Not Detected (NotDetected) 05/15/20 06:47 Urine Methadone Screen Not Detected (NotDetected) 05/15/20 06:47 Ur Propoxyphene Screen Not Detected (NotDetected) 05/15/20 06:47 Ur Barbiturates Screen Not Detected (NotDetected) 05/15/20 06:47 U Tricyclic Antidepress Not Detected (NotDetected) 05/15/20 06:47 Ur Phencyclidine Scrn Not Detected (NotDetected) 05/15/20 06:47 Ur Amphetamines Screen Detected (NotDetected) H 05/15/20 06:47 U Methamphetamines Scrn Detected (NotDetected) H 05/15/20 06:47 U Benzodiazepines Scrn Not Detected (NotDetected) 05/15/20 06:47 Urine Cocaine Screen Detected (NotDetected) H 05/15/20 06:47 U Marijuana (THC) Screen Not Detected (NotDetected) 05/15/20 06:47 Vital Signs Temp 98.0 F 05/20/20 04:42 Pulse 110 H 05/20/20 04:42 Resp 16 05/20/20 04:42 BP 118/64 05/20/20 04:42 Pulse Ox 98 05/20/20 04:42 Intake & Output 05/19/20 05/20/20 05/20/20 18:59 06:59 18:59 Weight 79.1 kg Patient Condition at Discharge: Stable Plan - Discharge Summary New Discharge Prescriptions: New LORazepam [Ativan] 1 mg PO BID PRN 10 Days #20 tab PRN Reason: akithesia/restlessness Propranolol [Inderal] 30 mg PO BID PRN 30 Days tab PRN Reason: restlessness/akithesia Sennosides-Docusate Sodium [Senokot-S] 2 each PO BID tab QUEtiapine [SEROquel] 100 mg PO HS 30 Days tab Acetaminophen Tab [Tylenol] 650 mg PO Q4HR PRN tab PRN Reason: Pain/Discomfort buPROPion XL [Wellbutrin XL] 150 mg PO DAILY 30 Days tab.er.24h Continue Methadone [Dolophine] 40 mg PO DAILY tab Paliperidone Palmitate [Invega Sustenna] 117 mg IM QMONTHLY #1 syr Nicotine Polacrilex [Nicorette] 2 mg BUCCAL Q4HR PRN 30 Days gum PRN Reason: Nicotine Cravings Discontinued LORazepam [Ativan] 0.5 mg PO QID PRN 14 Days tab PRN Reason: restlessness/akithesia Nicotine 14Mg/24Hr Patch [Habitrol] 1 patch TRANSDERM DAILY 30 Days patch Propranolol [Inderal] 20 mg PO BID PRN 30 Days tab PRN Reason: restlessness or akithesia QUEtiapine [SEROquel] 200 mg PO HS 30 Days tab buPROPion XL [Wellbutrin XL] 300 mg PO DAILY 30 Days tab.er.24h Sennosides-Docusate Sodium [Senokot-S] 2 tab PO BID Discharge Medication List Methadone [Dolophine] 40 mg PO DAILY tab 04/21/20 [Rx] Acetaminophen Tab [Tylenol] 650 mg PO Q4HR PRN tab 05/20/20 [Rx] LORazepam [Ativan] 1 mg PO BID PRN 10 Days #20 tab 05/20/20 [Rx] Nicotine Polacrilex [Nicorette] 2 mg BUCCAL Q4HR PRN 30 Days gum 05/20/20 [Rx] Paliperidone Palmitate [Invega Sustenna] 117 mg IM QMONTHLY #1 syr 05/20/20 [Rx] Propranolol [Inderal] 30 mg PO BID PRN 30 Days tab 05/20/20 [Rx] QUEtiapine [SEROquel] 100 mg PO HS 30 Days tab 05/20/20 [Rx] Sennosides-Docusate Sodium [Senokot-S] 2 each PO BID tab 05/20/20 [Rx] buPROPion XL [Wellbutrin XL] 150 mg PO DAILY 30 Days tab.er.24h 05/20/20 [Rx] Follow up Appointment(s)/Referral(s): [facility] [Outside] - 05/20/20 2:00 pm (Intake on [facility]) None,Stated [Primary Care Provider] - 1-2 days Activity/Diet/Wound Care/Special Instructions: Activity and diet as tolerated. Avoid the use of street drugs and alcohol. Take all medications as prescribed. When you are in need of refills on your medications please contact your medical provider and/or outpatient psychiatrist to have this done. Please go to scheduled outpatient appointment for aftercare treatment. If symptoms return or become worse, call the crisis line at and/or go to the nearest emergency room for evaluation. Discharge Disposition: HOME SELF-CARE
[2020-05-20] MEDS: PROPRANOLOL 10 MG TAB PO PRN (10:20)
[2020-05-20] MEDS: LORazepam 1 MG TAB PO PRN (11:50)
[2020-05-20 11:51] VITALS: BP 133/89; PULSE 113
[2020-06-09] MEDS ORDERED: PALIPERIDONE IM 156 MG/ML SYG IM SCH (09:00)
== END 2020-05-20 15:13 | disposition home or self-care (01) | DRG 885 ==
LOC: EC 06:26 → 3MHU 10:03
PROVIDERS: ADMIT Psychiatry & Neurology Psychiatry; ATTEND Psychiatry & Neurology Psychiatry
DX: F25.9 Schizoaffective disorder, unspecified (principal); F11.20 Opioid dependence, uncomplicated; R45.851 Suicidal ideations; Z91.14 Patient's other noncompliance with medication regimen; Z59.0 Homelessness; F14.10 Cocaine abuse, uncomplicated; F31.9 Bipolar disorder, unspecified; F15.10 Other stimulant abuse, uncomplicated; F12.10 Cannabis abuse, uncomplicated; B19.20 Unspecified viral hepatitis C without hepatic coma; F90.9 Attention-deficit hyperactivity disorder, unspecified type; F41.9 Anxiety disorder, unspecified; F17.210 Nicotine dependence, cigarettes, uncomplicated; R45.87 Impulsiveness; G47.00 Insomnia, unspecified; Z71.3 Dietary counseling and surveillance; Z79.899 Other long term (current) drug therapy; Z87.442 Personal history of urinary calculi; Z88.8 Allergy status to other drugs, medicaments and biological substances
CPT/HCPCS: 80053; 80061; 80306; 81003; 82075; 83036; 84443; 85025; 93005; 99285

== ENCOUNTER 2020-06-03 03:37 | Emergency (ER) | payer OTHER ==
[2020-06-03 03:45] VITALS: RESP 18
--- NOTE | 2020-06-03 03:57 | ED ---
Extremity Problem HPI - General Chief complaint: Extremity Problem,Nontraumatic Stated complaint: leg pain Time Seen by Provider: 06/03/20 03:56 Source: patient Mode of arrival: ambulatory Limitations: no limitations - History of Present Illness Initial comments: Chuy is a 35-year-old male who presents to the ER today as a walk-in for evaluation of multiple months of numbness in his right lower extremity. Patient reports that he noticed this after sleeping weird on his leg, he states that he felt like the lower half of his leg was numb and tingly. He said it improved for some time but sometimes still bothers him. Patient states that it's actually not feeling numb right now. Of note patient presented into the ER after being escorted off the hospital grounds for walking through the parking lot attempting to open car doors. - Related Data Previous Rx's Medication Instructions Recorded Methadone [Dolophine] 40 mg PO DAILY tab 04/21/20 Acetaminophen Tab [Tylenol] 650 mg PO Q4HR PRN tab 05/20/20 LORazepam [Ativan] 1 mg PO BID PRN 10 Days #20 tab 05/20/20 Nicotine Polacrilex [Nicorette] 2 mg BUCCAL Q4HR PRN 30 Days gum 05/20/20 Paliperidone Palmitate [Invega 117 mg IM QMONTHLY #1 syr 05/20/20 Sustenna] Propranolol [Inderal] 30 mg PO BID PRN 30 Days tab 05/20/20 QUEtiapine [SEROquel] 100 mg PO HS 30 Days tab 05/20/20 Sennosides-Docusate Sodium 2 each PO BID tab 05/20/20 [Senokot-S] buPROPion XL [Wellbutrin XL] 150 mg PO DAILY 30 Days tab.er.24h 05/20/20 Allergies Allergy/AdvReac Type Severity Reaction Status Date / Time haloperidol Allergy Unknown Verified 06/03/20 03:45 Review of Systems ROS Statement: Those systems with pertinent positive or pertinent negative responses have been documented in the HPI. ROS Other: All systems not noted in ROS Statement are negative. Past Medical History Additional Past Medical History / Comment(s): HEPATITIS C, kidney stone History of Any Multi-Drug Resistant Organisms: None Reported Past Surgical History: No Surgical Hx Reported Past Anesthesia/Blood Transfusion Reactions: No Reported Reaction Past Psychological History: ADD/ADHD, Anxiety, Bipolar, Schizoaffective Disorder Smoking Status: Current every day smoker Past Alcohol Use History: Rare Past Drug Use History: Cocaine, Heroin, Marijuana, Methamphetamine, Prescription Drug Abuse - Past Family History family Family Medical History: No Reported History General Exam - General Exam Comments Initial Comments: Physical Exam GENERAL: Patient is well-developed and well-nourished. Patient is nontoxic and well-hydrated and is in no distress. HENT: Normocephalic, Atraumatic. EYES: PERRL, EOMI PULMONARY: Unlabored respirations. CARDIOVASCULAR: RRR Warm and well perfused extremities ABDOMEN: Non-distended SKIN: No rashes or bruising : Deferred NEUROLOGIC: Alert and oriented Normal speech Normal gait Normal sensation to touch, cold and vibratory sense Normal patellar reflexes bilateral MUSCULOSKELETAL: Moving all extremities with no apparent injury PSYCHIATRIC: No SI/HI Limitations: no limitations Course Vital Signs 06/03/20 06/03/20 03:43 05:18 Temperature 98.7 F 98.2 F Pulse Rate 88 84 Respiratory 18 18 Rate Blood Pressure 123/76 128/74 O2 Sat by Pulse 100 98 Oximetry Medical Decision Making - Medical Decision Making The patient was seen and evaluated, history is obtained from the patient Is a 35-year-old male who was found ambulating through the parking lot of the hospital, attempting to open doors on cars as witnessed on security cameras patient was subsequently escorted off the grounds and then returns stating that he was actually coming in to be seen Patient reports numbness in his right lower extremity intermittently for the past 6 months but none today Has been ambulating for multiple hours outside of the hospital with no difficulty Physical exam is unremarkable he has normal sensation to touch, vibratory sense, cold and has normal reflexes Discussed with the patient that he needs to follow up with primary care for referral to neurology if he has persistent symptoms Disposition Clinical Impression: Peripheral neuropathy Disposition: HOME SELF-CARE Condition: Stable Instructions (If sedation given, give patient instructions): Peripheral Neuropathy (ED) Is patient prescribed a controlled substance at d/c from ED?: No Referrals: [facility] [Primary Care Provider] - 1-2 days
[2020-06-03 05:25] VITALS: BP 128/74; PULSE 84; TEMP 98.2
== END 2020-06-03 05:18 | disposition home or self-care (01) ==
LOC: EC 03:37
DX: G62.9 Polyneuropathy, unspecified (principal); F17.200 Nicotine dependence, unspecified, uncomplicated; Z88.8 Allergy status to other drugs, medicaments and biological substances
CPT/HCPCS: 99283

== ENCOUNTER 2020-10-01 23:06 | Emergency (ER) | payer OTHER ==
[2020-10-01 23:16] VITALS: BP 131/81; PULSE 72; RESP 18; TEMP 98.7
--- NOTE | 2020-10-02 00:14 | ED ---
Skin/Abscess/FB HPI - General Chief complaint: Skin/Abscess/Foreign Body Stated complaint: Rash Time Seen by Provider: 10/01/20 23:17 Source: patient Mode of arrival: ambulatory Limitations: no limitations - History of Present Illness Initial comments: This patient is 35-year-old man who presents to have evaluation of rash to the genital area. Patient states there are couple of different lesions there. He indicates that there is what he believes is genital wart, which is been present for approximately one year. The patient states that he also is having an itching, scaling rash which has come up over the past approximately 3 days. He indicates that there are couple of small bumps as well. Patient was seen at [facility] within the past 24 hours, but states that he was not provided any treatment, and it may be a little worse. Patient has not noted any swelling or pain in the inguinal areas. Has not noted dysuria or urethral discharge. No testicular pain or tenderness. No fever or chills. No new sexual partners. MD complaint: rash -: days(s) Tetanus Up to Date: yes Location: genitals Severity: mild Consistency: constant Improves with: none Worsens with: none Context: none Associated symptoms: itching Treatments Prior to Arrival: none - Related Data Previous Rx's Medication Instructions Recorded Methadone [Dolophine] 40 mg PO DAILY tab 04/21/20 Acetaminophen Tab [Tylenol] 650 mg PO Q4HR PRN tab 05/20/20 LORazepam [Ativan] 1 mg PO BID PRN 10 Days #20 tab 05/20/20 Nicotine Polacrilex [Nicorette] 2 mg BUCCAL Q4HR PRN 30 Days gum 05/20/20 Paliperidone Palmitate [Invega 117 mg IM QMONTHLY #1 syr 05/20/20 Sustenna] Propranolol [Inderal] 30 mg PO BID PRN 30 Days tab 05/20/20 QUEtiapine [SEROquel] 100 mg PO HS 30 Days tab 05/20/20 Sennosides-Docusate Sodium 2 each PO BID tab 05/20/20 [Senokot-S] buPROPion XL [Wellbutrin XL] 150 mg PO DAILY 30 Days tab.er.24h 05/20/20 Clotrimazole/Betameth Cream 1 applic TOPICAL BID #15 gm 02/18/21 [Lotrisone] Allergies Allergy/AdvReac Type Severity Reaction Status Date / Time haloperidol Allergy Unknown Verified 06/03/20 03:45 Review of Systems ROS Statement: Those systems with pertinent positive or pertinent negative responses have been documented in the HPI. ROS Other: All systems not noted in ROS Statement are negative. Constitutional: Denies: fever, chills Eyes: Denies: eye pain, eye discharge ENT: Denies: throat pain Respiratory: Denies: cough, dyspnea Cardiovascular: Denies: chest pain, palpitations Gastrointestinal: Denies: abdominal pain, vomiting, diarrhea Genitourinary: Reports: as per HPI. Denies: dysuria, frequency, hematuria, discharge, testicular pain, testicular mass Musculoskeletal: Denies: back pain Skin: Reports: as per HPI, rash Past Medical History Additional Past Medical History / Comment(s): HEPATITIS C, kidney stone History of Any Multi-Drug Resistant Organisms: None Reported Past Surgical History: No Surgical Hx Reported Past Anesthesia/Blood Transfusion Reactions: No Reported Reaction Past Psychological History: ADD/ADHD, Anxiety, Bipolar, Schizoaffective Disorder Smoking Status: Current every day smoker Past Alcohol Use History: Rare Past Drug Use History: Cocaine, Heroin, Marijuana, Methamphetamine, Prescription Drug Abuse - Past Family History family Family Medical History: No Reported History General Exam Limitations: no limitations General appearance: alert, in no apparent distress Head exam: Present: atraumatic, normocephalic Eye exam: Present: normal appearance. Absent: scleral icterus, conjunctival injection ENT exam: Present: normal oropharynx Neck exam: Present: normal inspection, full ROM. Absent: lymphadenopathy Respiratory exam: Present: normal lung sounds bilaterally. Absent: respiratory distress, wheezes, rales, rhonchi, stridor Cardiovascular Exam: Present: regular rate, normal rhythm, normal heart sounds. Absent: systolic murmur, diastolic murmur, rubs, gallop GI/Abdominal exam: Present: soft. Absent: distended, tenderness, guarding exam: Present: vertical testicular lie, circumcision, other (There are no enlarged or tender inguinal nodes). Absent: urethral discharge, scrotal swelling External exam: Present: lesions (Patient does have an approximately 1 cm diameter lesion to the shaft of the penis. At the base the penis and towards the scrotum there is scaling, erythematous rash more concerning for tinia) Extremities exam: Present: normal inspection Back exam: Absent: CVA tenderness (R), CVA tenderness (L) Neurological exam: Present: alert Skin exam: Present: warm, dry, intact, normal color, rash, other (See exam) Course Vital Signs 10/01/20 23:08 Temperature 98.7 F Pulse Rate 72 Respiratory 18 Rate Blood Pressure 131/81 O2 Sat by Pulse 99 Oximetry Medical Decision Making - Medical Decision Making The patient did have testing for STI performed here. The lesion to the shaft of the penis probably most consistent with HPV infection, and for this will be referred to health department for definitive treatment. There does appear to be some tinea cruris and patient is provided antifungal cream for this also to follow with health department. Dermatology referral provided if he develops generalized rash. Discussed appropriate further care and follow-up as well as return parameters. Disposition Clinical Impression: Tinea cruris, HPV (human papilloma virus) infection Disposition: HOME SELF-CARE Condition: Good Instructions (If sedation given, give patient instructions): Genital Warts (ED) Additional Instructions: As we discussed, you must follow-up for the results of the send out testing to ensure that there is no other infection. Follow with the health department to have further treatment for the HPV infection. Should you have any other rash concerns, the research analyst as listed below. Prescriptions: Clotrimazole/Betameth Cream [Lotrisone] 1 applic TOPICAL BID #15 gm Is patient prescribed a controlled substance at d/c from ED?: No Referrals: [facility] [Primary Care Provider] - 1-2 days Shawanda Bradford MD [STAFF PHYSICIAN] - 1-2 days [facility] [NON-STAFF] - 1-2 days
[2020-10-03 13:29] LABS: C. trachomatis,PCR Negative (Neg,Equiv); Chlamydia trachomatis Source Urine; N. gonorrhoeae,PCR Negative (Neg,Equiv); Neisseria Source Urine
== END 2020-10-02 00:25 | disposition home or self-care (01) ==
LOC: EC 23:06
DX: B35.6 Tinea cruris (principal); A63.0 Anogenital (venereal) warts; F17.200 Nicotine dependence, unspecified, uncomplicated; Z88.0 Allergy status to penicillin; Z87.442 Personal history of urinary calculi; Z86.19 Personal history of other infectious and parasitic diseases
CPT/HCPCS: 36415; 86780; 87491; 87591; 99283

== ENCOUNTER 2020-10-11 16:12 | Emergency (ER) | payer OTHER ==
[2020-10-11 16:22] VITALS: TEMP 98
--- NOTE | 2020-10-11 16:26 | ED ---
Male Urogenital HPI - General Chief complaint: Urogenital Stated complaint: Rash,Nausea Time Seen by Provider: 10/11/20 16:20 Source: patient Mode of arrival: ambulatory Limitations: no limitations - History of Present Illness Initial comments: Patient is 35-year-old male presents emergency room with multiple complaints. Patient states that he has a rash on his scrotum. Patient was seen 10 days ago for similar complaint. States that the rash is similar in nature. He is concerned about his HPV lesion and wants it removed. States he did not follow up with dermatology or the health clinic. He also has complaints that he was kicked out of his doctor's office and taken off his Suboxone. Patient is requesting prescription for Suboxone. Lastly the patient is concerned that he is constipated. Has not taken any medications at home to attempt have a bowel movement. Denies any nausea or vomiting. No fevers chills. No black or bloody stools. No other alleviating, precipitating or modifying factors - Related Data Previous Rx's Medication Instructions Recorded Methadone [Dolophine] 40 mg PO DAILY tab 04/21/20 Acetaminophen Tab [Tylenol] 650 mg PO Q4HR PRN tab 05/20/20 LORazepam [Ativan] 1 mg PO BID PRN 10 Days #20 tab 05/20/20 Nicotine Polacrilex [Nicorette] 2 mg BUCCAL Q4HR PRN 30 Days gum 05/20/20 Paliperidone Palmitate [Invega 117 mg IM QMONTHLY #1 syr 05/20/20 Sustenna] Propranolol [Inderal] 30 mg PO BID PRN 30 Days tab 05/20/20 QUEtiapine [SEROquel] 100 mg PO HS 30 Days tab 05/20/20 Sennosides-Docusate Sodium 2 each PO BID tab 05/20/20 [Senokot-S] buPROPion XL [Wellbutrin XL] 150 mg PO DAILY 30 Days tab.er.24h 05/20/20 Clotrimazole/Betameth Cream 1 applic TOPICAL BID #15 gm 10/02/20 [Lotrisone] Polyethylene Glycol 3350 [Miralax] 17 gm PO DAILY #527 gm 10/11/20 Allergies Allergy/AdvReac Type Severity Reaction Status Date / Time haloperidol Allergy Unknown Verified 10/11/20 16:22 Review of Systems ROS Statement: Those systems with pertinent positive or pertinent negative responses have been documented in the HPI. ROS Other: All systems not noted in ROS Statement are negative. Past Medical History Additional Past Medical History / Comment(s): HEPATITIS C, kidney stone History of Any Multi-Drug Resistant Organisms: None Reported Past Surgical History: No Surgical Hx Reported Past Anesthesia/Blood Transfusion Reactions: No Reported Reaction Past Psychological History: ADD/ADHD, Anxiety, Bipolar, Schizoaffective Disorder Smoking Status: Current every day smoker Past Alcohol Use History: Rare Past Drug Use History: Cocaine, Heroin, Marijuana, Methamphetamine, Prescription Drug Abuse - Past Family History family Family Medical History: No Reported History General Exam Limitations: no limitations General appearance: alert, in no apparent distress Head exam: Present: atraumatic, normocephalic, normal inspection Eye exam: Present: normal appearance, PERRL, EOMI. Absent: scleral icterus, conjunctival injection, periorbital swelling ENT exam: Present: normal exam, mucous membranes moist Neck exam: Present: normal inspection. Absent: tenderness, meningismus, lymphadenopathy Respiratory exam: Present: normal lung sounds bilaterally. Absent: respiratory distress, wheezes, rales, rhonchi, stridor Cardiovascular Exam: Present: regular rate, normal rhythm, normal heart sounds. Absent: systolic murmur, diastolic murmur, rubs, gallop, clicks GI/Abdominal exam: Present: soft, normal bowel sounds. Absent: distended, tenderness, guarding, rebound, rigid Extremities exam: Present: normal inspection, full ROM, normal capillary refill. Absent: tenderness, pedal edema, joint swelling, calf tenderness Back exam: Present: normal inspection Neurological exam: Present: alert, oriented X3, CN II-XII intact Psychiatric exam: Present: normal affect, normal mood Skin exam: Present: warm, dry, intact, normal color. Absent: rash Course Vital Signs 10/11/20 10/11/20 10/11/20 16:20 17:22 17:41 Temperature 98 F 98 F Pulse Rate 64 65 65 Respiratory 16 18 18 Rate Blood Pressure 113/76 122/75 122/75 O2 Sat by Pulse 96 97 97 Oximetry Medical Decision Making - Medical Decision Making Upon arrival patient is placed in room 18. A thorough history and physical exam was performed. I did request to take a look at the patient's genitalia however he refused and looked exactly like it did last time. I informed patient that I could not offer any further treatment if I was not able to do a full evaluation for to the patient understood. I also spoke with the patient regards to requesting Suboxone and that I am not allowed to prescribe this medication as I do not have a pain management license. Patient understood this. Did recommend he follow up with her primary care doctor and pain management. Lastly the patient was sent over for a KUB to evaluate for constipation. KUB does demonstrate a moderate stool burden. Did recommend treatment with MiraLAX for which the patient agreed to. Patient will be discharged home at this time instructed to follow-up with his primary care doctor in 2-4 days. Patient agreed and was discharged home in stable condition Disposition Clinical Impression: Constipation, Genital warts, HPV (human papilloma virus) infection Disposition: HOME SELF-CARE Condition: Stable Instructions (If sedation given, give patient instructions): Constipation (ED), Genital Warts (ED) Additional Instructions: Please follow up with the flat folder in 1 week for your rash and wart. Take the Miralax daily. Return to the ED for any new or worsening symptoms. Prescriptions: Polyethylene Glycol 3350 [Miralax] 17 gm PO DAILY #527 gm Is patient prescribed a controlled substance at d/c from ED?: No Referrals: [facility] [Primary Care Provider] - 1-2 days Shawanda Bradford MD [STAFF PHYSICIAN] - 1-2 days [facility] [NON-STAFF] - 1-2 days Time of Disposition: 17:06
[2020-10-11] MEDS ORDERED: cloNIDine 0.1 MG/24HR PATCH TRANSDERM SCH (17:00)
--- NOTE | 2020-10-11 17:16 | XR ---
EXAMINATION TYPE: XR KUB DATE OF EXAM: 10/11/2020 COMPARISON: NONE HISTORY: Flank pain TECHNIQUE: 2 views FINDINGS: 2 views upright show no sign of intestinal obstruction or pneumoperitoneum. Fecal pattern i s normal. Lung bases are clear. There is no evidence of a mass. IMPRESSION: Nonacute abdomen. No adverse change.
[2020-10-11 17:40] VITALS: BP 122/75; PULSE 65; RESP 18
== END 2020-10-11 17:41 | disposition home or self-care (01) ==
LOC: EC 16:12
DX: A63.0 Anogenital (venereal) warts (principal); K59.00 Constipation, unspecified; F17.200 Nicotine dependence, unspecified, uncomplicated; Z88.8 Allergy status to other drugs, medicaments and biological substances
CPT/HCPCS: 74018; 99283